=== PATIENT | female | born 1980 | race Caucasian/White ===

== ENCOUNTER → 2018-08-06 12:11 | Outpatient (CLI) | payer MEDICAID, SELFPAY ==
[2018-08-06 12:33] LABS: Add Manual Diff / Slide Review NO; Basophils Percent Auto 0.5 % (0-2); Eosinophils Percent Auto 0.9 % (2-4); Hematocrit 39.1 % (36-46); Hemoglobin 13.3 g/dL (12.0-16.0); Lymphocytes Percent Auto 41.3 % (25-40); Mean Corpuscular HGB Conc 34.1 % (30-36); Mean Corpuscular Hemoglobin 32.9 PG (26-34); Mean Corpuscular Volume 96.5 fL (80-100); Monocytes Percent Auto 6.3 % (3-14); Neutrophils Absolute Auto 2000 /uL (3000-5900); Platelet Count 189 X10^3/uL (150-400); Red Blood Cell Count 4.06 X10^6/uL (4.0-5.2); Red Cell Distribution Width 11.7 % (11.6-14.8); White Blood Cell Count 3.9 X10^3/uL (4.5-11.0)
[2018-08-06 12:39] LABS: Appearance Urine UA CLEAR; Bilirubin Urine UA NEGATIVE (NEGATIVE); Color Urine UA YELLOW; Glucose Urine UA NEGATIVE (Normal); Ketones Urine UA NEGATIVE (NEGATIVE); Leukocyte Esterase Urine UA NEGATIVE (NEGATIVE); Nitrite Urine UA Negative (Negative); Occult Blood Urine UA 1+ (Negative); Protein Urine UA TRACE (Negative); Specific Gravity Urine UA 1.025 (1.000-1.035); Urobilinogen Urine UA 0.2 E.U./dL (0.2); pH Urine UA 5.5 (4.5-8.0)
[2018-08-06 12:59] LABS: Alanine Aminotransferase 19 IU/L (9-52); Albumin 4.2 g/dL (3.5-5.0); Albumin Globulin Ratio 1.8 (1.0-2.8); Alkaline Phosphatase 49 U/L (38-126); Aspartate Aminotransferase 18 IU/L (14-36); BUN Creatinine Ratio 11.3 (6-22); Bilirubin Total 0.6 mg/dL (0.2-1.3); Blood Urea Nitrogen 9 mg/dL (7-17); Calcium 9.1 mg/dL (8.4-10.2); Carbon Dioxide 29 mmol/L (22-32); Chloride 106 mmol/L (98-107); Estimated Glomerular Filt Rate > 60.0 mL/min (>60); Globulin 2.3 g/dL (1.7-4.1); Glucose 94 mg/dL (70-100); HEMOLYSIS < 15 (0-50); Potassium 3.9 mmol/L (3.4-5.1); Sodium 143 mmol/L (137-145); Total Protein 6.5 g/dL (6.3-8.2)
== END ==
PROVIDERS: Visit Provider Internal Medicine
DX: M54.9 Dorsalgia, unspecified (principal)
CPT/HCPCS: 36415; 80053; 81003; 85025

== ENCOUNTER → 2018-08-07 15:11 | Outpatient (CLI) | payer MEDICAID, SELFPAY ==
[2018-08-07 15:16] LABS: Bacteria Urine None Seen; RBC Urine None Seen (0-5/HPF)
[2018-08-07 15:37] LABS: Appearance Urine UA CLEAR; Bilirubin Urine UA NEGATIVE (NEGATIVE); Color Urine UA YELLOW; Glucose Urine UA NEGATIVE (Normal); Ketones Urine UA NEGATIVE (NEGATIVE); Leukocyte Esterase Urine UA NEGATIVE (NEGATIVE); Nitrite Urine UA Negative (Negative); Occult Blood Urine UA 1+ (Negative); Protein Urine UA NEGATIVE (Negative); Specific Gravity Urine UA 1.025 (1.000-1.035); Urobilinogen Urine UA 0.2 E.U./dL (0.2); pH Urine UA 5.5 (4.5-8.0)
[2018-08-07 16:13] LABS: Culture Indicated Urine Cult Not Indicated; WBC Urine 10-30/HPF (0-5/HPF)
== END ==
PROVIDERS: Family Provider Family Medicine; PCP Family Medicine
DX: B37.9 Candidiasis, unspecified (principal)
CPT/HCPCS: 81001

== ENCOUNTER → 2019-01-05 13:18 | Outpatient (CLI) | payer MEDICAID, SELFPAY ==
--- NOTE | 2019-01-05 | DI.RAD.S_ITS ---
PROCEDURE: XR LUMBAR SPINE 2-3V INDICATIONS: CHRONIC BACK PAIN TECHNIQUE: 3 views of the lumbar spine were acquired. COMPARISON: None. FINDINGS: Bones: No fracture or focal osseous destruction. Dextrocurvature is noted. Disc spaces appear grossly preserved. There is lower lumbar facet arthropathy from L4-S1. Soft tissues: Overlying bowel gas pattern is normal. No suspicious soft tissue calcifications. IMPRESSION: Dextroscoliosis. Lower lumbar facet arthropathy. Dictated by: Davion Christianson M.D. on 01/05/2019 at 15:16 Approved by: Davion Christianson M.D. on 01/05/2019 at 15:18
== END ==
PROVIDERS: Visit Provider Family Medicine
DX: M54.5 Low back pain (principal); M47.26 Other spondylosis with radiculopathy, lumbar region; M41.86 Other forms of scoliosis, lumbar region; G89.29 Other chronic pain
CPT/HCPCS: 72100

== ENCOUNTER → 2019-01-14 10:29 | Outpatient (CLI) | payer MEDICAID, SELFPAY ==
--- NOTE | 2019-01-14 10:31 | DI.RAD.S_ITS ---
PROCEDURE: XR KNEE RT 3V INDICATIONS: Right knee pain s/p injury TECHNIQUE: 3 views of the knee were acquired. COMPARISON: [facility], , KNEE 3V RIGHT, 03/02/2012, 12:49. FINDINGS: Bones: No fractures or dislocations. No suspicious bony lesions. Soft tissues: No joint effusion. No suspicious soft tissue calcifications. IMPRESSION: No acute radiographic abnormality. If clinical symptoms persist or clinical suspicion for pathology is high, a repeat examination in 7-10 days, or advanced imaging such as CT or MRI is suggested for further evaluation. Dictated by: Radha Jorge M.D. on 01/14/2019 at 12:29 Approved by: Radha Jorge M.D. on 01/14/2019 at 12:30
== END ==
PROVIDERS: PCP Family Medicine; Visit Provider Registered Nurse
DX: M25.561 Pain in right knee (principal)
CPT/HCPCS: 73562

== ENCOUNTER 2019-04-10 02:45 | Emergency (ER) | payer MEDICAID, SELFPAY ==
[2019-04-10 02:52] VITALS: BP 117/80; PULSE 85; RESP 20; TEMP 37.6; O2SAT 97; BMI 23.9
--- NOTE | 2019-04-10 04:27 | ED.ANXIETY ---
HPI - Anxiety General Chief Complaint: Anxiety Stated Complaint: states has ptsd crying Time Seen by Provider: 04/10/19 04:07 Source: patient Mode of arrival: ambulatory Limitations: no limitations History of Present Illness HPI narrative: Patient is a 38-year-old female who presents with hallucinations. She has a history of PTSD she states sometimes whenever she ceasing the images in her mind stay there. She has been on the Motrin and present Zosyn. Her doctor will not increase the dose until she is evaluated again. She just can't get any sleep. She denies any suicidal or homicidal ideations. Related Data Home Medications Medication Instructions Recorded Confirmed lamotrigine 200 mg PO BID #0 06/04/17 01/14/19 PTSD Meds PO 01/14/19 01/14/19 Previous Rx's Medication Instructions Recorded fluconazole 150 mg tablet 150 mg PO ONCE #2 tab 01/14/19 metronidazole 500 mg tablet 500 mg PO BID #14 tab 01/14/19 Allergies Allergy/AdvReac Type Severity Reaction Status Date / Time meperidine [MEPERIDINE] Allergy Severe SEVERE Verified 04/10/19 02:56 SICKNESS morphine [MORPHINE] Allergy Severe SEVERE Verified 04/10/19 02:56 SICKNESS hydroxyzine [From VISTARIL] Allergy Unknown HEART Verified 04/10/19 02:56 RACING sulfamethoxazole AdvReac Mild increased Verified 04/10/19 02:56 [From SEPTRA] symptoms & nausea trimethoprim [From SEPTRA] AdvReac Mild increased Verified 04/10/19 02:56 symptoms & nausea metronidazole [METRONIDAZOLE] AdvReac Unknown ANXIETY Verified 04/10/19 02:56 AND AGITATION Review of Systems Review of Systems GENERAL: Denies chills, fatigue, malaise, fever, sweats, travel HEENT: Denies sinus pain, ear pain, sore throat, difficulty swallowing, neck pain RESPIRATORY: Denies dyspnea, cough, wheezing, hemoptysis, sputum. CARDIOVASCULAR: Denies chest pain, palpitations, orthopnea, edema GASTROINTESTINAL: Denies nausea, vomiting, abdominal pain, diarrhea, constipation, melena. : Denies dysuria, frequency, incontinence, hematuria, urinary retention, flank pain. MUSCULOSKELETAL: Denies weakness, joint pain, or bony pain SKIN: No rash, no erythema, no pruritus NEUROLOGIC: Denies weakness, dizziness, headache, numbness, change in speech, confusion PSYCHIATRIC: N see HPI 12 point review of systems is negative except for those stated above and HPI PFSH Medical History Anxiety (Chronic) Bipolar disorder (Chronic) Chronic pelvic pain in female (Chronic) Depression (Chronic) Surgical History History of surgery on arm (Resolved 1985) Status post hernia repair (Resolved) Status post laparoscopy (Resolved) Social History Smoking Status: Never smoker alcohol intake: never substance use type: marijuana Social History Smoking Status: Never smoker alcohol intake: never substance use type: marijuana Exam Initial Vital Signs Initial Vital Signs: Vital Signs Temperature 99.6 F 04/10/19 02:52 Pulse Rate 85 04/10/19 02:52 Respiratory Rate 20 04/10/19 02:52 Blood Pressure 117/80 04/10/19 02:52 Pulse Oximetry 97 04/10/19 02:52 GENERAL: Tearful alert well-appearing male and in no acute distress. HEENT: Head atraumatic,EOMI, pupils reactive, CARDIOVASCULAR: Regular rate and rhythm without murmurs, rubs or gallops. RESPIRATORY: Breath sounds equal bilaterally, no wheezes rales or rhonchi. EXTREMITIES: Normal range of motion, no clubbing or edema. Neurovascularly intact NEUROLOGICAL: Alert and oriented x4.Normal gait and speech. Cranial nerves II through XII grossly intact. SKIN: Warm, dry, no laceration, no petechiae, no rashes or lesions. Course Orders Ordered: Discontinued Medications Lorazepam (Ativan) 1 mg PO NOW ONE Stop: 04/10/19 05:59 Last Admin: 04/10/19 06:01 Dose: 1 mg Vital Signs - 8 hr 04/10/19 02:52 04/10/19 05:54 Temperature 99.6 F 97.2 F L Pulse Rate 85 61 Respiratory Rate 20 18 Blood Pressure 117/80 Blood Pressure [Left Arm] 87/61 L Pulse Oximetry 97 98 MDM - Anxiety MDM Narrative Medical decision making narrative: Patient is offered Ativan. She drove herself. She is adamant that she must drive home. She is given Ativan to go Discharge Plan Departure Patient Disposition: Home Clinical Impression: PTSD (post-traumatic stress disorder) Discharge Date/Time: 04/10/19 06:05 Interventions: ED Discharge Assessment Last Done: 04/10/19 06:07 Instructions: Post-traumatic Stress Disorder Activity Restrictions/Additional Instructions: *You have been diagnosed with PTSD *What to do: Recommend new psychiatrist and or therapist *Continue to take medications as directed Ativan 1 mg once you get home *Follow up with your primary care provider in 2-3 days--call [phone] for new PCP *Return to ER if you should have suicidal thoughts, worsening anxiety, chest pain or any new, worsening or concerning symptoms Prescriptions: No Action lamotrigine 200 MG tablet 200 mg PO BID Qty: 0 RF: 0 PTSD Meds PO RF: 0 fluconazole [Diflucan] 150 mg tablet 150 mg PO ONCE Qty: 2 RF: 0 metronidazole [Flagyl] 500 mg tablet 500 mg PO BID Qty: 14 RF: 0 Referrals: Hamzah Rust MD [Primary Care Provider] -
[2019-04-10 05:54] VITALS: BP 87/61; PULSE 61; RESP 18; TEMP 36.2; O2SAT 98
--- NOTE | 2019-04-10 05:57 | PC.NURSE ---
Pt would like Ativan to get some sleep and DR. Aguilera aware.
[2019-04-10] MEDS: LORazepam 0.5 MG TABLET 1 MG PO (06:01)
== END 2019-04-10 06:05 | disposition home or self-care (01) ==
PROVIDERS: Emergency Provider Emergency Medicine; PCP Family Medicine
DX: F43.10 Post-traumatic stress disorder, unspecified (principal)
CPT/HCPCS: 99282; 99283

== ENCOUNTER 2019-04-14 02:34 | Emergency (ER) | payer MEDICAID, SELFPAY ==
[2019-04-14 02:42] VITALS: BP 112/73; PULSE 84; RESP 20; TEMP 36.3; O2SAT 99; BMI 23.6
--- NOTE | 2019-04-14 03:45 | ED.ANXIETY ---
HPI - Anxiety General Chief Complaint: Anxiety Stated Complaint: not sleeping, mental problems Time Seen by Provider: 04/14/19 03:45 Source: patient Mode of arrival: ambulatory Limitations: no limitations History of Present Illness HPI narrative: The patient has a history of PTSD. She suffers from anxiety and insomnia. She takes Lamictal, as well as prazosin. She is not complaining of nightmares. With the symptoms she is having abdominal cramping. She has not vomited. She feels her oral intake is decreased. He has no fever or chills. She has no abnormal bowel movements. He has no chronic GI problems. She has no homicidal or suicidal ideation, she would like to sleep. She feels like she is trending toward being manic. Related Data Home Medications Medication Instructions Recorded Confirmed lamotrigine 200 mg PO BID #0 06/04/17 01/14/19 PTSD Meds PO 01/14/19 01/14/19 Previous Rx's Medication Instructions Recorded fluconazole 150 mg tablet 150 mg PO ONCE #2 tab 01/14/19 metronidazole 500 mg tablet 500 mg PO BID #14 tab 01/14/19 lorazepam [Ativan] 1 mg PO BEDTIME PRN #5 tab 04/14/19 metoclopramide HCl [Reglan] 10 mg PO Q8H PRN #30 tab 04/14/19 Allergies Allergy/AdvReac Type Severity Reaction Status Date / Time meperidine [MEPERIDINE] Allergy Severe SEVERE Verified 04/10/19 02:56 SICKNESS morphine [MORPHINE] Allergy Severe SEVERE Verified 04/10/19 02:56 SICKNESS hydroxyzine [From VISTARIL] Allergy Unknown HEART Verified 04/10/19 02:56 RACING sulfamethoxazole AdvReac Mild increased Verified 04/10/19 02:56 [From ] symptoms & nausea trimethoprim [From AUGRA] AdvReac Mild increased Verified 04/10/19 02:56 symptoms & nausea metronidazole [METRONIDAZOLE] AdvReac Unknown ANXIETY Verified 04/10/19 02:56 AND AGITATION Review of Systems Review of Systems ROS Unobtainable: All systems reviewed & are unremarkable except as noted in HPI and below Constitutional Denies headache(s) and Denies weakness Eyes Denies change in vision ENT Ears, Nose, Mouth, and Throat: Denies headache(s) and Denies neck pain Cardiovascular Denies chest pain, Denies lightheadedness, Denies dyspnea and Denies orthopnea Respiratory Denies cough, Denies dyspnea and Denies wheezing Gastrointestinal Gastrointestinal: Denies constipation, Reports cramping, Denies diarrhea, Denies nausea and Denies vomiting Comments: Decreased appetite. Genitourinary Denies dysuria Musculoskeletal Denies back pain and Denies neck pain Integumentary/Breasts Denies pruritus, Denies erythema, Denies rash and Denies wounds Neurologic Denies confusion, Denies headache(s) and Denies weakness Psychiatric Denies anxiety, Denies confusion, Denies homicidal ideation and Denies suicidal ideation Allergic/Immunologic Denies wheezing [facility] Medical History Anxiety (Chronic) Bipolar disorder (Chronic) Chronic pelvic pain in female (Chronic) Depression (Chronic) Surgical History History of surgery on arm (Resolved 1985) Status post hernia repair (Resolved) Status post laparoscopy (Resolved) Social History Smoking Status: Never smoker alcohol intake: never substance use type: marijuana Social History Smoking Status: Never smoker alcohol intake: never substance use type: marijuana Exam Initial Vital Signs Initial Vital Signs: Vital Signs Temperature 97.3 F L 04/14/19 02:42 Pulse Rate 84 04/14/19 02:42 Respiratory Rate 20 04/14/19 02:42 Blood Pressure 112/73 04/14/19 02:42 Pulse Oximetry 99 04/14/19 02:42 Const General: cooperative and well developed Nutritional Appearance: well nourished Orientation: alert, awake, oriented x3 and not confused [facility] Head: normocephalic and atraumatic Ears: external ears normal and TM's normal bilaterally Nose: external nose normal Face and sinus: sinuses nontender Mouth: moist mucous membranes Teeth and gingiva: dentition normal Throat: tonsils normal and uvula midline Eyes General: appearance normal, both eyes and all related structures Eyelids: eyelids normal Conjunctivae: conjunctivae normal Sclera: sclerae normal Pupils: PERRL EOM: EOM intact bilaterally Chest Chest: normal inspection of the chest Resp Effort & Inspection: normal respiratory effort, able to speak in complete sentences, no respiratory distress and no use of accessory muscles Auscultation: clear to auscultation bilaterally, no rales, no rhonchi and no wheezes Cardio Rate: regular rate Rhythm: regular rhythm Heart Sounds: no click, no gallops, no murmurs and no rubs Pulses: normal peripheral pulses GI Inspection: normal to inspection and non-distended Palpation: soft, no hepatosplenomegaly, No pulsatile mass and tender (Mild epigastric discomfort.) Auscultation: normal bowel sounds Back/Spine/Pelvis Back: No CVA tenderness Thoracic/Lumbar Spine: thoracic and lumbar spine normal to inspection Skin General: no rashes or lesions noted, No jaundice and No petechiae Neuro General: alert, oriented x3, gait normal and no focal motor deficits Speech: speech normal Extrem General: full ROM, no clubbing, cyanosis or edema, no pedal edema and no calf tenderness Psych Appearance: well kempt Mental Status: mental status grossly normal Attitude: cooperative Thought Content: normal and suicidality Judgment: judgment good Course Course Narrative: The the patient is here with anxiety, insomnia and abdominal discomfort. I gave her Reglan. She apparently got enough relief from the Reglan that she fell asleep she eventually hydrated enough to give a urine. The urine sample shows a degree of dehydration. She has been encouraged to drink more water. She will be discharged on Reglan with a 5 pills supply of Ativan. She will be asked to follow up with her physician to discuss ongoing needs. Orders Ordered: ED Orders 04/14/19 05:35 Urine Microscopic Stat Discontinued Medications Metoclopramide HCl (Reglan) 10 mg PO NOW ONE Stop: 04/14/19 03:57 Last Admin: 04/14/19 04:20 Dose: 10 mg Vital Signs - 8 hr 04/14/19 02:42 Temperature 97.3 F L Pulse Rate 84 Respiratory Rate 20 Blood Pressure 112/73 Pulse Oximetry 99 MDM - Anxiety Lab Data Urine Dip Bedside Urine Glucose Negative Bedside Urine Bilirubin - Negative Bedside Urine Ketone +++ 80 Urine Specific [place] 1.030 Bedside Urine Occult Blood +/- Bedside Urine pH 5.5 Bedside Urine Protein + 30 Bedside Urine Urobilinogen +/- 1mg Bedside Urine Nitrite - Negative Bedside Urine Leukocytes - Negative Esterase Discharge Plan Departure Patient Disposition: Home Clinical Impression: PTSD (post-traumatic stress disorder), Epigastric abdominal pain Insomnia Qualifiers: Insomnia type: due to other mental disorder Qualified Code(s): F51.05 - Insomnia due to other mental disorder Instructions: DI for Anxiety -- Adult Activity Restrictions/Additional Instructions: Continue with your currently prescribed medications. Reglan 3 times daily as needed for abdominal cramping or nausea. Ativan 1 tablet q.h.s. as needed for sleep, I element this prescription of 5 tablets. You need to follow-up with her doctor to discuss ongoing treatment. Return the ER when necessary. Prescriptions: New lorazepam [Ativan] 1 mg tablet 1 mg PO BEDTIME PRN (Reason: sleep) Qty: 5 RF: 0 metoclopramide HCl [Reglan] 10 mg tablet 10 mg PO Q8H PRN (Reason: nausea and vomiting) Qty: 30 RF: 0 No Action lamotrigine 200 MG tablet 200 mg PO BID Qty: 0 RF: 0 PTSD Meds PO RF: 0 fluconazole [Diflucan] 150 mg tablet 150 mg PO ONCE Qty: 2 RF: 0 metronidazole [Flagyl] 500 mg tablet 500 mg PO BID Qty: 14 RF: 0 Referrals: Hamzah Rust MD [Primary Care Provider] -
[2019-04-14] MEDS: METOCLOPRAMIDE HCL 10 MG TABLET PO (04:20)
[2019-04-14 06:31] LABS: Bacteria Urine Moderate (10-30); Culture Indicated Urine Cult Not Indicated; Mucus Urine 3+ (Negative); RBC Urine 0-1/HPF (0-5/HPF); Squamous Epithelial Cell Urine 1-5 /HPF (0-5/HPF); WBC Urine 1-5/HPF (0-5/HPF)
[2019-04-14 07:09] VITALS: BP 113/66; PULSE 80; RESP 18; O2SAT 98
== END 2019-04-14 07:10 | disposition home or self-care (01) ==
PROVIDERS: Emergency Provider Emergency Medicine; PCP Family Medicine
DX: F41.9 Anxiety disorder, unspecified (principal); R10.13 Epigastric pain; F51.05 Insomnia due to other mental disorder; F43.10 Post-traumatic stress disorder, unspecified
CPT/HCPCS: 81003; 81015; 99282; 99283

== ENCOUNTER 2019-05-12 21:02 | Emergency (ER) | payer MEDICAID, SELFPAY ==
[2019-05-12 21:06] VITALS: BP 122/72; PULSE 72; RESP 18; TEMP 36.6; O2SAT 98; BMI 23.6
[2019-05-12 21:20] LABS: Add Manual Diff / Slide Review NO; Basophils Absolute Auto 100 /uL (0-100); Basophils Percent Auto 0.9 % (0-2); Eosinophils Absolute Auto 200 /uL (0-450); Eosinophils Percent Auto 3.6 % (2-4); Hematocrit 39.5 % (36-46); Hemoglobin 13.4 g/dL (12.0-16.0); Lymphocytes Absolute Auto 2300 /uL (1100-4500); Lymphocytes Percent Auto 34.7 % (25-40); Mean Corpuscular Hemoglobin 32.7 PG (26-34); Mean Corpuscular Volume 96.3 fL (80-100); Monocytes Absolute Auto 400 /uL (0-900); Monocytes Percent Auto 6.5 % (3-14); Neutrophils Absolute Auto 3500 /uL (1500-7000); Neutrophils Percent Auto 54.3 % (50-75); Platelet Count 203 X10^3/uL (150-400); Red Cell Distribution Width 12.4 % (11.6-14.8); White Blood Cell Count 6.5 X10^3/uL (4.5-11.0)
[2019-05-12] MEDS: ONDANSETRON 4 MG/2 ML INJ IV (21:21)
[2019-05-12 21:26] LABS: Prothrombin Time 11.8 SECONDS (10.1-12.7)
[2019-05-12 21:28] LABS: PTT Partial Thromboplastin Tim 33 SECONDS (26.4-36.2)
[2019-05-12 21:30] LABS: Alanine Aminotransferase 10 IU/L (9-52); Albumin 4.5 g/dL (3.5-5.0); Albumin Globulin Ratio 1.6 (1.0-2.8); Alkaline Phosphatase 64 U/L (38-126); Aspartate Aminotransferase 20 IU/L (14-36); BUN Creatinine Ratio 12.9 (6-22); Bilirubin Total 0.7 mg/dL (0.2-1.3); Blood Urea Nitrogen 9 mg/dL (7-17); Calcium 9.4 mg/dL (8.4-10.2); Carbon Dioxide 24 mmol/L (22-32); Chloride 103 mmol/L (98-107); Estimated Glomerular Filt Rate > 60.0 mL/min (>60); Globulin 2.9 g/dL (1.7-4.1); Glucose 92 mg/dL (70-100); HEMOLYSIS < 15 (0-50); Lipase 65 U/L (23-300); Potassium 3.8 mmol/L (3.4-5.1); Sodium 139 mmol/L (137-145); Total Protein 7.4 g/dL (6.3-8.2)
--- NOTE | 2019-05-12 21:58 | ED.ABDPAIN ---
HPI - Abdominal Pain General Chief Complaint: Abdominal Pain Stated Complaint: CAN'T KEEP ANYTHING DOWN Time Seen by Provider: 05/12/19 21:06 Source: patient and family Mode of arrival: ambulatory Limitations: no limitations History of Present Illness HPI narrative: 38-year-old female nonsmoker with history of anxiety and vomiting presents with a chief complaint multiple episodes of vomiting over the course of the day. This follows the typical scenario for her. She is not dizzy or weak or lightheaded. She states she no longer has access to enter for benzos. She denies any fever or chills. She has no dysuria, frequency or urgency. She does have some mild associated abdominal pain MD complaint: abdominal pain Onset (ago): hour(s) Pain Consistency: constant Location: diffuse Severity: mild Quality: cramping and aching Migration to: no migration Relieving factors: nothing Exacerbating factors: nothing Associated symptoms: nausea and vomiting Related Data Home Medications Medication Instructions Recorded Confirmed lamotrigine 200 mg PO BID #0 06/04/17 01/14/19 PTSD Meds PO 01/14/19 01/14/19 Previous Rx's Medication Instructions Recorded fluconazole 150 mg tablet 150 mg PO ONCE #2 tab 01/14/19 metronidazole 500 mg tablet 500 mg PO BID #14 tab 01/14/19 lorazepam [Ativan] 1 mg PO BEDTIME PRN #5 tab 04/14/19 metoclopramide HCl [Reglan] 10 mg PO Q8H PRN #30 tab 04/14/19 alprazolam 0.25 mg PO BID PRN #10 tab 05/12/19 Allergies Allergy/AdvReac Type Severity Reaction Status Date / Time meperidine [MEPERIDINE] Allergy Severe SEVERE Verified 04/10/19 02:56 SICKNESS morphine [MORPHINE] Allergy Severe SEVERE Verified 04/10/19 02:56 SICKNESS hydroxyzine [From VISTARIL] Allergy Unknown HEART Verified 04/10/19 02:56 RACING sulfamethoxazole AdvReac Mild increased Verified 04/10/19 02:56 [From ] symptoms & nausea trimethoprim [From AUGRA] AdvReac Mild increased Verified 04/10/19 02:56 symptoms & nausea metronidazole [METRONIDAZOLE] AdvReac Unknown ANXIETY Verified 04/10/19 02:56 AND AGITATION Review of Systems Constitutional Denies chills, Denies fever(s), Denies lethargy and Denies weakness Eyes Denies change in vision, Denies eye discharge, Denies irritation and Denies loss of vision ENT Ears, Nose, Mouth, and Throat: Denies change in voice, Denies neck pain and Denies sore throat Cardiovascular Denies chest pain, Denies irregular heart rhythm, Denies lightheadedness, Denies palpitations, Denies dyspnea, Denies dyspnea on exertion and Denies orthopnea Respiratory Denies cough, Denies dyspnea, Denies dyspnea on exertion and Denies wheezing Gastrointestinal Gastrointestinal: Reports abdominal pain, Denies change in bowel habits, Denies diarrhea, Reports nausea and Reports vomiting Genitourinary Denies hematuria, Denies flank pain, Denies urinary incontinence and Denies urinary urgency Musculoskeletal Denies neck pain Integumentary/Breasts Denies pruritus, Denies erythema, Denies rash and Denies wounds Neurologic Denies confusion, Denies loss of vision and Denies weakness Psychiatric Reports anxiety, Denies confusion, Denies depression, Denies homicidal ideation and Denies suicidal ideation Endocrine Denies palpitations Hematologic/Lymphatic Denies easy bruising Allergic/Immunologic Denies wheezing [facility] Medical History Anxiety (Chronic) Bipolar disorder (Chronic) Chronic pelvic pain in female (Chronic) Depression (Chronic) Surgical History History of surgery on arm (Resolved 1985) Status post hernia repair (Resolved) Status post laparoscopy (Resolved) Social History Smoking Status: Never smoker alcohol intake: never substance use type: marijuana Social History Smoking Status: Never smoker alcohol intake: never substance use type: marijuana Exam Narrative Exam Narrative: GENERAL: This is a well-nourished, well-developed patient, in mild distress. Tearful and anxious HEAD: Atraumatic. Normocephalic. No temporal or scalp tenderness. EYES: Pupils equal round and reactive. Extraocular motions intact. No scleral icterus. No injection or drainage. ENT: Nose without bleeding, purulent drainage or septal hematoma. Throat without erythema, tonsillar hypertrophy or exudate. Uvula midline. Airway patent. NECK: Trachea midline. No JVD or lymphadenopathy. Supple, nontender, no meningeal signs. CARDIOVASCULAR: Regular rate and rhythm without murmurs, gallops, or rubs. RESPIRATORY: Clear to auscultation. Breath sounds equal bilaterally. No wheezes, rales, or rhonchi. GASTROINTESTINAL: Abdomen soft, generalized tenderness, nondistended. No hepato-splenomegaly, or palpable masses. No guarding. EXTREMITIES: No clubbing, cyanosis, or edema. No joint tenderness, effusion, or edema noted. BACK: Nontender without deformity or crepitance. No flank tenderness. NEURO: AOx3. SKIN: No rash or erythema. Initial Vital Signs Initial Vital Signs: Vital Signs Temperature 98 F 05/12/19 21:06 Pulse Rate 72 05/12/19 21:06 Respiratory Rate 18 05/12/19 21:06 Blood Pressure 122/72 05/12/19 21:06 Pulse Oximetry 98 05/12/19 21:06 Course Orders Ordered: ED Orders 05/12/19 21:09 EKG-12 Lead Stat 05/12/19 21:11 Complete Blood Count AUTO DIFF Stat Comprehensive Metabolic Panel Stat Lipase Stat Partial Thromboplastin Time Stat Prothrombin Time INR Stat 05/12/19 22:30 Urine Microscopic Stat Discontinued Medications Sodium Chloride (Normal Saline 0.9%) 1,000 mls @ 1,000 mls/hr IV BOLUS ONE Stop: 05/12/19 22:55 Last Infusion: 05/12/19 23:18 Dose: 1,000 mls/hr Admin: 05/12/19 22:04 Dose: 1,000 mls/hr Lorazepam (Ativan) 1 mg IV NOW ONE Stop: 05/12/19 23:09 Last Admin: 05/12/19 23:18 Dose: 1 mg Ondansetron HCl (Zofran) 4 mg IV NOW ONE Stop: 05/12/19 21:18 Last Admin: 05/12/19 21:21 Dose: 4 mg Ondansetron HCl (Zofran Odt Prepack) 1 bottle MISC SEEINSTR ONE Stop: 05/12/19 23:09 Last Admin: 05/12/19 23:18 Dose: 1 bottle Pantoprazole Sodium (Protonix) 40 mg IV NOW ONE Stop: 05/12/19 21:57 Last Admin: 05/12/19 22:04 Dose: 40 mg Vital Signs - 8 hr 05/12/19 21:06 05/12/19 22:00 05/12/19 23:00 Temperature 98 F Pulse Rate 72 57 L 73 Respiratory Rate 18 14 16 Blood Pressure 122/72 Blood Pressure [Right Arm] 102/74 105/75 Pulse Oximetry 98 98 100 MDM - Abdominal Pain Lab Data Result diagrams: 05/12/19 21:11 05/12/19 21:11 Lab Results 05/12/19 05/12/19 05/12/19 Range/Units 21:11 21:11 21:11 WBC 6.5 (4.5-11.0) X10^3/uL RBC 4.10 (4.0-5.2) X10^6/uL Hgb 13.4 (12.0-16.0) g/dL Hct 39.5 (36-46) % MCV 96.3 (80-100) fL MCH 32.7 (26-34) PG MCHC 34.0 (30-36) % RDW 12.4 (11.6-14.8) % Plt Count 203 (150-400) X10^3/uL Neut % (Auto) 54.3 (50-75) % Lymph % (Auto) 34.7 (25-40) % Frio % (Auto) 6.5 (3-14) % Eos % (Auto) 3.6 (2-4) % Baso % (Auto) 0.9 (0-2) % Neut # (Auto) 3500 (4513-3173) /uL Lymph # (Auto) 2300 (1391-7782) /uL Frio # (Auto) 400 (0-900) /uL Eos # (Auto) 200 (0-450) /uL Baso # (Auto) 100 (0-100) /uL PT 11.8 (10.1-12.7) SECONDS INR 1.0 (0.9-1.3) APTT 33 (26.4-36.2) SECONDS Sodium 139 (137-145) mmol/L Potassium 3.8 (3.4-5.1) mmol/L Chloride 103 (98-107) mmol/L Carbon Dioxide 24 (22-32) mmol/L BUN 9 (7-17) mg/dL Creatinine 0.70 (0.52-1.04) mg/dL Estimated GFR > 60.0 (>60) mL/min BUN/Creatinine Ratio 12.9 (6-22) Glucose 92 (70-100) mg/dL Calcium 9.4 (8.4-10.2) mg/dL Total Bilirubin 0.7 (0.2-1.3) mg/dL AST 20 (14-36) IU/L ALT 10 (9-52) IU/L Alkaline Phosphatase 64 (38-126) U/L Total Protein 7.4 (6.3-8.2) g/dL Albumin 4.5 (3.5-5.0) g/dL Globulin 2.9 (1.7-4.1) g/dL Albumin/Globulin Ratio 1.6 (1.0-2.8) Lipase 65 (23-300) U/L Urine RBC (0-5/HPF) Urine WBC (0-5/HPF) Ur Squamous Epith Cells (0-5/HPF) Urine Bacteria (None) Ur Culture Indicated? 05/12/19 Range/Units 22:30 WBC (4.5-11.0) X10^3/uL RBC (4.0-5.2) X10^6/uL Hgb (12.0-16.0) g/dL Hct (36-46) % MCV (80-100) fL MCH (26-34) PG MCHC (30-36) % RDW (11.6-14.8) % Plt Count (150-400) X10^3/uL Neut % (Auto) (50-75) % Lymph % (Auto) (25-40) % Frio % (Auto) (3-14) % Eos % (Auto) (2-4) % Baso % (Auto) (0-2) % Neut # (Auto) (9965-5849) /uL Lymph # (Auto) (4996-8648) /uL Frio # (Auto) (0-900) /uL Eos # (Auto) (0-450) /uL Baso # (Auto) (0-100) /uL PT (10.1-12.7) SECONDS INR (0.9-1.3) APTT (26.4-36.2) SECONDS Sodium (137-145) mmol/L Potassium (3.4-5.1) mmol/L Chloride (98-107) mmol/L Carbon Dioxide (22-32) mmol/L BUN (7-17) mg/dL Creatinine (0.52-1.04) mg/dL Estimated GFR (>60) mL/min BUN/Creatinine Ratio (6-22) Glucose (70-100) mg/dL Calcium (8.4-10.2) mg/dL Total Bilirubin (0.2-1.3) mg/dL AST (14-36) IU/L ALT (9-52) IU/L Alkaline Phosphatase (38-126) U/L Total Protein (6.3-8.2) g/dL Albumin (3.5-5.0) g/dL Globulin (1.7-4.1) g/dL Albumin/Globulin Ratio (1.0-2.8) Lipase (23-300) U/L Urine RBC 1-5/hpf (0-5/HPF) Urine WBC 1-5/hpf (0-5/HPF) Ur Squamous Epith Cells 1-5 /hpf (0-5/HPF) Urine Bacteria Few (2-10) H (None) Ur Culture Indicated? Cult not indicated Point of care testing: Point of Care Testing Test Results Negative Urine Dip Bedside Urine Glucose Negative Bedside Urine Bilirubin - Negative Bedside Urine Ketone +++ 80 Urine Specific [place] 1.020 Bedside Urine Occult Blood +++ Bedside Urine pH 6.0 Bedside Urine Protein +/- 15 Bedside Urine Urobilinogen - Negative Bedside Urine Nitrite - Negative Bedside Urine Leukocytes - Negative Esterase Discharge Plan Departure Patient Disposition: Home Clinical Impression: Vomiting Qualifiers: Vomiting type: unspecified Vomiting Intractability: non-intractable Nausea presence: with nausea Qualified Code(s): R11.2 - Nausea with vomiting, unspecified Discharge Date/Time: 05/12/19 23:24 Interventions: ED Discharge Assessment Last Done: 05/12/19 23:24 Instructions: DI for Anxiety -- Adult, DI for Vomiting -- Adult Activity Restrictions/Additional Instructions: 1. Drink plenty of fluids with frequent small sips. 2. For the next 24 hours a clear liquid diet is advised. After that please employ a brat diet which would include bananas, rice, apples, toast. 3. Please take medications as directed. 4. Please follow-up with your doctor in the next 1-2 days. Call the office for an appointment. 5. Please return to the emergency Department for any worsening or persistent symptoms, such as increasing pain or fever. Prescriptions: New alprazolam 0.25 mg tablet 0.25 mg PO BID PRN (Reason: anxiety) Qty: 10 RF: 0 No Action lamotrigine 200 MG tablet 200 mg PO BID Qty: 0 RF: 0 PTSD Meds PO RF: 0 fluconazole [Diflucan] 150 mg tablet 150 mg PO ONCE Qty: 2 RF: 0 metronidazole [Flagyl] 500 mg tablet 500 mg PO BID Qty: 14 RF: 0 lorazepam [Ativan] 1 mg tablet 1 mg PO BEDTIME PRN (Reason: sleep) Qty: 5 RF: 0 metoclopramide HCl [Reglan] 10 mg tablet 10 mg PO Q8H PRN (Reason: nausea and vomiting) Qty: 30 RF: 0
[2019-05-12 22:00] VITALS: BP 102/74; PULSE 57; RESP 14; O2SAT 98
[2019-05-12] MEDS: SODIUM CHLORIDE 0.9% 1,000 ML 1000 ML IV (22:04)
[2019-05-12] MEDS: PANTOPRAZOLE 40 MG VIAL IV (22:04)
[2019-05-12 23:00] VITALS: BP 105/75; PULSE 73; RESP 16; O2SAT 100
[2019-05-12] MEDS: LORazepam 2 MG/ML INJ 1 MG IV (23:18)
[2019-05-12] MEDS: ONDANSETRON 4 MG ODT PREPACK 1 BOTTLE MISC (23:18)
[2019-05-12 23:37] LABS: RBC Urine 1-5/HPF (0-5/HPF); Squamous Epithelial Cell Urine 1-5 /HPF (0-5/HPF); WBC Urine 1-5/HPF (0-5/HPF)
[2019-05-12 23:38] LABS: Bacteria Urine Few (2-10); Culture Indicated Urine Cult Not Indicated
== END 2019-05-12 23:24 | disposition home or self-care (01) ==
PROVIDERS: Emergency Provider Emergency Medicine
DX: R11.2 Nausea with vomiting, unspecified (principal); R10.84 Generalized abdominal pain
CPT/HCPCS: 80053; 81003; 81015; 81025; 83690; 85025; 85610; 85730; 93005; 96361; 96374; 96375; 99283; 99284; C9113; J2060; J2405

== ENCOUNTER → 2019-07-16 16:08 | Outpatient (CLI) | payer MEDICAID, SELFPAY ==
[2019-07-16 19:48] LABS: Urine N gonorrhoeae NOT DETECTED
[2019-07-16 19:54] LABS: Urine Chlamydia NOT DETECTED
== END ==
PROVIDERS: Visit Provider Hospitalist
DX: R10.2 Pelvic and perineal pain (principal)
CPT/HCPCS: 87491; 87591

== ENCOUNTER 2019-11-20 03:50 | Emergency (ER) | payer MEDICAID, SELFPAY ==
[2019-11-20 03:56] VITALS: BP 115/76; PULSE 72; RESP 18; TEMP 36.6; O2SAT 98
--- NOTE | 2019-11-20 04:09 | ED.ANXIETY ---
HPI - Anxiety General Chief Complaint: Anxiety Stated Complaint: hx ptsd difficulty sleeping Time Seen by Provider: 11/20/19 03:59 Source: patient Mode of arrival: Ambulatory Limitations: no limitations History of Present Illness HPI narrative: 38-year-old female with a history of PTSD states that she has gone approximately 24 hours without her Lamictal. She states that she thought she had a extra prescription for this at home however did not. She was unable to go to the pharmacy to pick it up so has been at least 24 hours without her medications. States that when she does not take this medication her anxiety level increases and she has problems sleeping. She states she has prescriptions for this medication but just has not had a chance to go and pick them up. She is here because she is feeling anxious and could not sleep Related Data Home Medications Medication Instructions Recorded Confirmed lamotrigine 200 mg PO BID #0 06/04/17 09/14/19 buspirone 10 mg tablet 10 mg PO TID 09/14/19 09/14/19 Allergies Allergy/AdvReac Type Severity Reaction Status Date / Time meperidine [MEPERIDINE] Allergy Severe SEVERE Verified 09/14/19 15:52 SICKNESS morphine [MORPHINE] Allergy Severe SEVERE Verified 09/14/19 15:52 SICKNESS hydroxyzine [From VISTARIL] Allergy Unknown HEART Verified 09/14/19 15:52 RACING sulfamethoxazole AdvReac Mild increased Verified 09/14/19 15:52 [From SEPTRA] symptoms & nausea trimethoprim [From SEPTRA] AdvReac Mild increased Verified 09/14/19 15:52 symptoms & nausea metronidazole [METRONIDAZOLE] AdvReac Unknown ANXIETY Verified 09/14/19 15:52 AND AGITATION Review of Systems Constitutional Constitutional: Denies fever(s) Cardiovascular Cardiovascular: Denies chest pain and Denies dyspnea Respiratory Respiratory: Denies dyspnea Gastrointestinal Gastrointestinal: Denies abdominal pain Neurologic Neurologic: Denies behavioral changes Psychiatric Psychiatric: Reports anxiety, Denies behavioral changes and Denies depression Comments: Insomnia Hematologic/Lymphatic Hematologic/Lymphatic: Denies easy bleeding and Denies easy bruising Patient History Medical History Anxiety (Chronic) Bipolar disorder (Chronic) Chronic pelvic pain in female (Chronic) Depression (Chronic) Social History Smoking Status: Never smoker alcohol intake: never substance use type: marijuana Smoking Status: Never smoker alcohol intake frequency: other Substance Use Type: marijuana Exam Initial Vital Signs Initial Vital Signs: Vital Signs Temperature 98 F 11/20/19 03:56 Pulse Rate 72 11/20/19 03:56 Respiratory Rate 18 11/20/19 03:56 Blood Pressure 115/76 11/20/19 03:56 Pulse Oximetry 98 11/20/19 03:56 Const General: cooperative Orientation: alert and awake HENMT Head: normal to inspection and normocephalic Resp Effort & Inspection: normal respiratory effort Cardio Rate: regular rate Skin Lesions: no lesions Rashes: no rashes Neuro General: alert and awake Extrem General: normal to inspection and capillary refill normal Course Orders Ordered: Discontinued Medications Lorazepam (Ativan) 1 mg PO NOW ONE Stop: 11/20/19 04:11 Vital Signs Vital signs: Vital Signs - 8 hr 11/20/19 03:56 Temperature 98 F Pulse Rate 72 Respiratory Rate 18 Blood Pressure 115/76 Pulse Oximetry 98 MDM - Anxiety MDM Narrative Medical decision making narrative: Nontoxic. Is calm. Unfortunately we did not have Lamictal here in the emergency department or in the night pharmacy to give her. She was given Ativan. She stated that this was okay. She does have a prescription for Lamictal. She can pick it up at the pharmacy later today when it opens. Discharge Plan Departure Patient Disposition: Home Clinical Impression: Anxiety Insomnia Qualifiers: Insomnia type: unspecified Qualified Code(s): G47.00 - Insomnia, unspecified Instructions: Insomnia, Anxiety Disorders Activity Restrictions/Additional Instructions: I recommend that you go to the pharmacy today to fill your prescription for the Lamictal. Contact your primary provider for follow-up. Return to the emergency department for any new symptoms Prescriptions: No Action lamotrigine 200 MG tablet 200 mg PO BID Qty: 0 RF: 0 buspirone 10 mg tablet 10 mg PO TID RF: 0
[2019-11-20] MEDS: LORazepam 0.5 MG TABLET 1 MG PO (04:17)
[2019-11-20 04:27] VITALS: BP 105/70; PULSE 76; RESP 18; O2SAT 99
== END 2019-11-20 04:28 | disposition home or self-care (01) ==
PROVIDERS: Emergency Provider Emergency Medicine
DX: G47.00 Insomnia, unspecified (principal); F41.9 Anxiety disorder, unspecified
CPT/HCPCS: 99281; 99283

== ENCOUNTER 2019-11-21 02:11 | Emergency (ER) | payer MEDICAID, SELFPAY ==
[2019-11-21 02:25] VITALS: BP 117/74; PULSE 71; RESP 20; TEMP 36.7; O2SAT 98; BMI 22.1
--- NOTE | 2019-11-21 02:29 | ED.PSYCH ---
HPI - Psych General Chief Complaint: Psychiatric Symptoms Stated Complaint: PTSD ATTACK Time Seen by Provider: 11/21/19 02:24 Source: patient Mode of arrival: Ambulatory Limitations: no limitations History of Present Illness HPI Narrative: 38-year-old female with a history of PTSD and anxiety. I evaluated her here 24 hours ago for insomnia. She had gone a couple days without taking her lamotrigine. During last visit she was given Ativan here in the emergency department and she was going to picker tender helper her lamotrigine today. States that after that visit she went home and slept very well. She did picker tender helper her lamotrigine and did take it today as directed however this evening she again was unable to sleep. Related Data Home Medications Medication Instructions Recorded Confirmed lamotrigine 200 mg PO BID #0 06/04/17 09/14/19 buspirone 10 mg tablet 10 mg PO TID 09/14/19 09/14/19 Previous Rx's Medication Instructions Recorded lorazepam [Ativan] 1 mg PO BEDTIME PRN #10 tab 11/21/19 Allergies Allergy/AdvReac Type Severity Reaction Status Date / Time meperidine [MEPERIDINE] Allergy Severe SEVERE Verified 09/14/19 15:52 SICKNESS morphine [MORPHINE] Allergy Severe SEVERE Verified 09/14/19 15:52 SICKNESS hydroxyzine [From VISTARIL] Allergy Unknown HEART Verified 09/14/19 15:52 RACING sulfamethoxazole AdvReac Mild increased Verified 09/14/19 15:52 [From SEPTRA] symptoms & nausea trimethoprim [From SEPTRA] AdvReac Mild increased Verified 09/14/19 15:52 symptoms & nausea metronidazole [METRONIDAZOLE] AdvReac Unknown ANXIETY Verified 09/14/19 15:52 AND AGITATION Review of Systems Constitutional Constitutional: Denies fever(s) Cardiovascular Cardiovascular: Denies chest pain and Denies dyspnea Respiratory Respiratory: Denies dyspnea Gastrointestinal Gastrointestinal: Denies abdominal pain Integumentary/Breasts Skin/Breast: Denies lesions and Denies rash Neurologic Neurologic: Denies behavioral changes Psychiatric Psychiatric: Reports anxiety and Denies behavioral changes Comments: Insomnia Hematologic/Lymphatic Hematologic/Lymphatic: Denies easy bleeding and Denies easy bruising Patient History Medical History Anxiety (Chronic) Bipolar disorder (Chronic) Chronic pelvic pain in female (Chronic) Depression (Chronic) Surgical History History of surgery on arm (Resolved 1985) Status post hernia repair (Resolved) Status post laparoscopy (Resolved) Social History Smoking Status: Never smoker alcohol intake: never substance use type: marijuana Smoking Status: Never smoker alcohol intake frequency: other Substance Use Type: marijuana Exam Initial Vital Signs Initial Vital Signs: Vital Signs Temperature 98.1 F 11/21/19 02:25 Pulse Rate 71 11/21/19 02:25 Respiratory Rate 20 11/21/19 02:25 Blood Pressure 117/74 11/21/19 02:25 Pulse Oximetry 98 11/21/19 02:25 Const General: cooperative, healthy appearing and comfortable Resp Effort & Inspection: normal respiratory effort Cardio Rate: regular rate Skin Rashes: no rashes Neuro General: alert and awake Cognition: normal cognition Speech: speech normal Extrem General: normal to inspection Psych Appearance: grossly normal and well kempt Speech and Movement: not agitated, speech clear and not restless Mood: anxious mood and No angry Affect: sad and anxious affect Thought Process: normal Thought Content: normal Course Orders Ordered: Discontinued Medications Lorazepam (Ativan) 1 mg PO NOW ONE Stop: 11/21/19 02:30 Last Admin: 11/21/19 02:34 Dose: 1 mg Documented by: JONATHAN Vital Signs Vital signs: Vital Signs - 8 hr 11/21/19 02:25 Temperature 98.1 F Pulse Rate 71 Respiratory Rate 20 Blood Pressure 117/74 Pulse Oximetry 98 MDM - Psych MDM Narrative Medical decision making narrative: She states that she did have a good response to the Ativan. She has been on clonazepam in the past but not currently. She is given another dose of Ativan here in the ER. Will send her home with a prescription for short course of it now. She is going to continue with her lamotrigine. She is going to contact her therapist for a follow-up. She was given return precautions. She expressed understanding and agreement plan Discharge Plan Departure Patient Disposition: Home Clinical Impression: Anxiety Insomnia Qualifiers: Insomnia type: unspecified Qualified Code(s): G47.00 - Insomnia, unspecified Instructions: DI for Anxiety -- Adult Activity Restrictions/Additional Instructions: Continue to take your lamotrigine as directed. It is important that you contact her therapist for a follow-up appointment. Take the Ativan as needed as directed. Return to the emergency department for any new symptoms Prescriptions: New lorazepam [Ativan] 1 mg tablet 1 mg PO BEDTIME PRN (Reason: insomnia) Qty: 10 RF: 0 No Action lamotrigine 200 MG tablet 200 mg PO BID Qty: 0 RF: 0 buspirone 10 mg tablet 10 mg PO TID RF: 0
[2019-11-21] MEDS: LORazepam 0.5 MG TABLET 1 MG PO (02:34)
== END 2019-11-21 03:01 | disposition home or self-care (01) ==
LOC: ED 02:42
PROVIDERS: Emergency Provider Emergency Medicine
DX: F51.05 Insomnia due to other mental disorder (principal); F41.9 Anxiety disorder, unspecified
CPT/HCPCS: 99283

== ENCOUNTER 2020-04-13 10:07 | Emergency (ER) | payer MEDICAID, SELFPAY ==
[2020-04-13 10:15] VITALS: BP 137/100; PULSE 99; RESP 20; TEMP 36.8; O2SAT 98; BMI 20.2
--- NOTE | 2020-04-13 10:18 | ED_ITS ---
HPI - Anxiety General Chief Complaint: Anxiety Stated Complaint: anxiety Time Seen by Provider: 04/13/20 10:11 Source: patient and family Mode of arrival: Ambulatory Limitations: no limitations History of Present Illness HPI narrative: 39-year-old female nonsmoker with history of anxiety presents with family in the chief complaint of a panic attack that started this morning. She denies any obvious source of her anxiety but suspects it is likely due to the pain and neck. She is under the care of therapists and expects to get a call later this afternoon. She does have prescriptions for BuSpar and Ativan but has not taken them yet today. She denies any suicidal or homicidal ideation. She denies any dietary change Related Data Home Medications Medication Instructions Recorded Confirmed lamotrigine 200 mg PO BID #0 06/04/17 09/14/19 buspirone 10 mg tablet 10 mg PO TID 09/14/19 09/14/19 Previous Rx's Medication Instructions Recorded lorazepam [Ativan] 1 mg PO BEDTIME PRN #10 tab 11/21/19 lorazepam [Ativan] 1 mg PO BID PRN #10 tab 04/13/20 Allergies Allergy/AdvReac Type Severity Reaction Status Date / Time meperidine [MEPERIDINE] Allergy Severe SEVERE Verified 04/13/20 10:15 SICKNESS morphine [MORPHINE] Allergy Severe SEVERE Verified 04/13/20 10:15 SICKNESS hydroxyzine [From VISTARIL] Allergy Unknown HEART Verified 04/13/20 10:15 RACING sulfamethoxazole AdvReac Mild increased Verified 04/13/20 10:15 [From ] symptoms & nausea trimethoprim [From SEPTRA] AdvReac Mild increased Verified 04/13/20 10:15 symptoms & nausea metronidazole [METRONIDAZOLE] AdvReac Unknown ANXIETY Verified 04/13/20 10:15 AND AGITATION Review of Systems Constitutional Constitutional: Denies chills, Denies fatigue, Denies fever(s), Denies frequent falls, Denies lethargy and Denies weakness Eyes Eyes: Denies change in vision, Denies eye discharge, Denies irritation and Denies loss of vision ENT Ears, Nose, Mouth, and Throat: Denies change in voice, Denies dizziness, Denies neck pain, Denies sore throat and Denies throat swelling Cardiovascular Cardiovascular: Denies chest pain, Denies irregular heart rhythm, Denies lightheadedness, Denies palpitations, Denies dyspnea, Denies dyspnea on exertion and Denies orthopnea Respiratory Respiratory: Denies cough, Denies dyspnea, Denies dyspnea on exertion and Denies wheezing Gastrointestinal Gastrointestinal: Denies abdominal pain, Denies change in bowel habits, Denies diarrhea, Denies nausea and Denies vomiting Genitourinary Genitourinary: Denies hematuria, Denies flank pain, Denies urinary incontinence and Denies urinary urgency Musculoskeletal Musculoskeletal: Denies back pain, Denies muscle weakness, Denies neck pain, Denies numbness and Denies tingling Integumentary/Breasts Skin/Breast: Denies pruritus, Denies erythema, Denies rash and Denies wounds Neurologic Neurologic: Denies behavioral changes, Denies confusion, Denies dizziness, Denies frequent falls, Denies loss of vision, Denies numbness, Denies tingling and Denies weakness Psychiatric Psychiatric: Reports anxiety, Denies behavioral changes, Denies confusion, Denies depression, Denies homicidal ideation and Denies suicidal ideation Endocrine Endocrine: Denies fatigue, Denies flushing and Denies palpitations Hematologic/Lymphatic Hematologic/Lymphatic: Denies easy bruising Allergic/Immunologic Allergic/Immunologic: Denies urticaria, Denies throat swelling and Denies wheezing Patient History Medical History Anxiety (Chronic) Bipolar disorder (Chronic) Chronic pelvic pain in female (Chronic) Depression (Chronic) Surgical History History of surgery on arm (Resolved 1985) Status post hernia repair (Resolved) Status post laparoscopy (Resolved) Social History Smoking Status: Never smoker alcohol intake: never substance use type: marijuana Smoking Status: Never smoker alcohol intake frequency: holidays/special occasions only Substance Use Type: marijuana Exam Narrative Exam Narrative: GENERAL: [39] year old patient appears stated age. Well- nourished, well-developed patient, in mild distress. Sobbing, fearful. HEAD: Atraumatic. Normocephalic. EYES: Pupils equal round and reactive. Extraocular motions intact. No scleral icterus. No injection or drainage. ENT: Nose without bleeding, purulent drainage. Throat without erythema, t onsillar hypertrophy or exudate. Airway patent. NECK: Trachea midline. Non tender CARDIOVASCULAR: Regular rate and rhythm without murmurs, gallops, or rubs. RESPIRATORY: Clear to auscultation. Breath sounds equal bilaterally. No wheezes, rales, or rhonchi. GASTROINTESTINAL: Abdomen soft, non-tender, nondistended. EXTREMITIES: No edema or joint tenderness. BACK: Nontender without deformity or crepitance. No flank tenderness. NEURO: AOx3. SKIN: No rash or erythema of visible areas Initial Vital Signs Initial Vital Signs: Vital Signs Temperature 98.3 F 04/13/20 10:15 Pulse Rate 99 H 04/13/20 10:15 Respiratory Rate 20 04/13/20 10:15 Blood Pressure 137/100 H 04/13/20 10:15 Pulse Oximetry 98 04/13/20 10:15 Course Course Course Narrative: patient feels MUCH better after above stated therapies. She has no SI/HI. She has already been in touch with her therapist. She can plan for safety. She demonstrates good insight. SHe has been given return precautions and has had questions answered to her apparent satisfaction./ Orders Ordered: ED Orders 04/13/20 10:28 Basic Metabolic Panel Stat Complete Blood Count AUTO DIFF Stat Discontinued Medications Lorazepam (Ativan) 1 mg IM NOW ONE Stop: 04/13/20 10:18 Last Admin: 04/13/20 10:29 Dose: 1 mg Documented by: BENJA Ondansetron HCl (Zofran Odt) 4 mg SL NOW ONE Stop: 04/13/20 10:18 Last Admin: 04/13/20 10:29 Dose: 4 mg Documented by: BENJA Vital Signs Vital signs: Vital Signs - 8 hr 04/13/20 10:15 04/13/20 12:07 04/13/20 12:09 Temperature 98.3 F Pulse Rate 99 H 72 72 Respiratory Rate 20 12 12 Blood Pressure 137/100 H 120/77 Blood Pressure [Right Arm] 120/77 Pulse Oximetry 98 100 100 MDM - Anxiety Lab Data Result diagrams: 04/13/20 10:28 04/13/20 10:28 Labs: Lab Results 04/13/20 04/13/20 Range/Units 10:28 10:28 WBC 4.6 (4.5-11.0) X10^3/uL RBC 4.00 (4.0-5.2) X10^6/uL Hgb 13.5 (12.0-16.0) g/dL Hct 39.6 (36-46) % MCV 98.8 (80-100) fL MCH 33.8 (26-34) PG MCHC 34.2 (30-36) % RDW 12.4 (11.6-14.8) % Plt Count 193 (150-400) X10^3/uL Neut % (Auto) 59.9 (50-75) % Lymph % (Auto) 30.8 (25-40) % [place] % (Auto) 4.9 (3-14) % Eos % (Auto) 3.5 (2-4) % Baso % (Auto) 0.9 (0-2) % Neut # (Auto) 2800 (5909-1085) /uL Lymph # (Auto) 1400 (3385-3312) /uL [place] # (Auto) 200 (0-900) /uL Eos # (Auto) 200 (0-450) /uL Baso # (Auto) 0 (0-100) /uL Sodium 140 (137-145) mmol/L Potassium 3.6 (3.4-5.1) mmol/L Chloride 106 (98-107) mmol/L Carbon Dioxide 26 (22-32) mmol/L BUN 8 (7-17) mg/dL Creatinine 0.78 (0.52-1.04) mg/dL Estimated GFR > 60.0 (>60) mL/min BUN/Creatinine Ratio 10.3 (6-22) Glucose 113 H (70-100) mg/dL Calcium 9.0 (8.4-10.2) mg/dL Discharge Plan Departure Patient Disposition: Home Clinical Impression: Anxiety Discharge Date/Time: 04/13/20 12:12 Activity Restrictions/Additional Instructions: *You have been diagnosed with [anxiety with panic attack] *What to do: *Take medications as directed *Follow up with your primary care provider in 2-3 days, call for an appointment. Let them know you were seen in the Emergency Department and that we ask that you be seen in follow up *Return to ER if you should have any new, worsening or concerning symptoms Prescriptions: New lorazepam [Ativan] 1 mg tablet 1 mg PO BID PRN (Reason: anxiety) Qty: 10 RF: 0 No Action lamotrigine 200 MG tablet 200 mg PO BID Qty: 0 RF: 0 buspirone 10 mg tablet 10 mg PO TID RF: 0 lorazepam [Ativan] 1 mg tablet 1 mg PO BEDTIME PRN (Reason: insomnia) Qty: 10 RF: 0 Referrals: [facility] [Outside] Yuri Faith MD [Primary Care Provider] -
[2020-04-13] MEDS: ONDANSETRON 4 MG ODT SL (10:29)
[2020-04-13] MEDS: LORazepam 2 MG/ML INJ 1 MG IM (10:29)
[2020-04-13 10:39] LABS: Add Manual Diff / Slide Review NO; Basophils Absolute Auto 0 /uL (0-100); Basophils Percent Auto 0.9 % (0-2); Eosinophils Absolute Auto 200 /uL (0-450); Eosinophils Percent Auto 3.5 % (2-4); Hematocrit 39.6 % (36-46); Hemoglobin 13.5 g/dL (12.0-16.0); Lymphocytes Absolute Auto 1400 /uL (1100-4500); Lymphocytes Percent Auto 30.8 % (25-40); Mean Corpuscular HGB Conc 34.2 % (30-36); Mean Corpuscular Hemoglobin 33.8 PG (26-34); Mean Corpuscular Volume 98.8 fL (80-100); Monocytes Absolute Auto 200 /uL (0-900); Monocytes Percent Auto 4.9 % (3-14); Neutrophils Absolute Auto 2800 /uL (1500-7000); Neutrophils Percent Auto 59.9 % (50-75); Platelet Count 193 X10^3/uL (150-400); Red Cell Distribution Width 12.4 % (11.6-14.8); White Blood Cell Count 4.6 X10^3/uL (4.5-11.0)
[2020-04-13 10:47] LABS: BUN Creatinine Ratio 10.3 (6-22); Blood Urea Nitrogen 8 mg/dL (7-17); Carbon Dioxide 26 mmol/L (22-32); Chloride 106 mmol/L (98-107); Estimated Glomerular Filt Rate > 60.0 mL/min (>60); Glucose 113 mg/dL (70-100); HEMOLYSIS < 15 (0-50); Potassium 3.6 mmol/L (3.4-5.1); Sodium 140 mmol/L (137-145)
[2020-04-13 12:07] VITALS: BP 120/77; PULSE 72; RESP 12; O2SAT 100
--- NOTE | 2020-04-13 12:08 | PC.NURSE ---
pt was in room with her sister and in no acute distress.
[2020-04-13 12:09] VITALS: BP 120/77; PULSE 72; RESP 12; O2SAT 100
== END 2020-04-13 12:12 | disposition home or self-care (01) ==
PROVIDERS: Emergency Provider Emergency Medicine; PCP Family Medicine
DX: F41.0 Panic disorder [episodic paroxysmal anxiety] (principal)
CPT/HCPCS: 36415; 80048; 85025; 96372; 99283; J2060

== ENCOUNTER 2020-05-16 23:14 | Emergency (ER) | payer MEDICAID, SELFPAY ==
[2020-05-16 23:21] VITALS: BP 158/114; PULSE 105; RESP 15; TEMP 37.1; O2SAT 99; BMI 20.3
--- NOTE | 2020-05-16 23:22 | ED_ITS ---
HPI - Anxiety General Chief Complaint: Anxiety Stated Complaint: bad anxiety Time Seen by Provider: 05/16/20 23:18 Source: patient Mode of arrival: Ambulatory Limitations: no limitations History of Present Illness HPI narrative: 39F non smoker with history of occasional THC use and anxiety presents with severe anxiety and she states she has been very anxious for the past day or so because she misplaced her prescription for buspirone. She sees her therapist frequently and her therapist and prescriber have been talking frequently. She denies suicidal or homicidal ideation. She denies alcohol or street drugs. She feels very worked up and wants some help getting through to tomorrow. MD complaint: anxiety and heart racing Onset (ago): hour(s) Severity: moderate Quality: constant Place: home History of similar episodes: Yes Provoking factors: emotional stress and medication change Relieving factors: medication Exacerbating factors: nothing Related Data Home Medications Medication Instructions Recorded Confirmed lamotrigine 200 mg PO BID #0 06/04/17 09/14/19 buspirone 10 mg tablet 10 mg PO TID 09/14/19 09/14/19 Previous Rx's Medication Instructions Recorded lorazepam [Ativan] 1 mg PO BEDTIME PRN #10 tab 11/21/19 lorazepam [Ativan] 1 mg PO BID PRN #10 tab 04/13/20 Allergies Allergy/AdvReac Type Severity Reaction Status Date / Time meperidine [MEPERIDINE] Allergy Severe SEVERE Verified 04/13/20 10:15 SICKNESS morphine [MORPHINE] Allergy Severe SEVERE Verified 04/13/20 10:15 SICKNESS hydroxyzine [From VISTARIL] Allergy Unknown HEART Verified 04/13/20 10:15 RACING sulfamethoxazole AdvReac Mild increased Verified 04/13/20 10:15 [From ] symptoms & nausea trimethoprim [From ] AdvReac Mild increased Verified 04/13/20 10:15 symptoms & nausea metronidazole [METRONIDAZOLE] AdvReac Unknown ANXIETY Verified 04/13/20 10:15 AND AGITATION Review of Systems Constitutional Constitutional: Denies chills, Denies fatigue, Denies fever(s), Denies frequent falls, Denies lethargy and Denies weakness Eyes Eyes: Denies change in vision, Denies eye discharge, Denies irritation and Denies loss of vision ENT Ears, Nose, Mouth, and Throat: Denies change in voice, Denies dizziness, Denies neck pain, Denies sore throat and Denies throat swelling Cardiovascular Cardiovascular: Denies chest pain, Denies irregular heart rhythm, Denies lightheadedness, Denies palpitations, Denies dyspnea, Denies dyspnea on exertion and Denies orthopnea Respiratory Respiratory: Denies cough, Denies dyspnea, Denies dyspnea on exertion and Denies wheezing Gastrointestinal Gastrointestinal: Denies abdominal pain, Denies change in bowel habits, Denies diarrhea, Denies nausea and Denies vomiting Musculoskeletal Musculoskeletal: Denies neck pain and Denies numbness Integumentary/Breasts Skin/Breast: Denies pruritus, Denies erythema, Denies rash and Denies wounds Neurologic Neurologic: Denies behavioral changes, Denies confusion, Denies dizziness, Den ies frequent falls, Denies loss of vision, Denies numbness and Denies weakness Psychiatric Psychiatric: Reports anxiety, Denies behavioral changes, Denies confusion, Denies depression, Reports panic attacks, Denies homicidal ideation and Denies suicidal ideation Endocrine Endocrine: Denies fatigue, Denies flushing and Denies palpitations Hematologic/Lymphatic Hematologic/Lymphatic: Denies easy bruising Allergic/Immunologic Allergic/Immunologic: Denies urticaria, Denies throat swelling and Denies wheezing Patient History Medical History Anxiety (Chronic) Bipolar disorder (Chronic) Chronic pelvic pain in female (Chronic) Depression (Chronic) Surgical History History of surgery on arm (Resolved 1985) Status post hernia repair (Resolved) Status post laparoscopy (Resolved) Social History Smoking Status: Never smoker alcohol intake: never substance use type: marijuana Smoking Status: Never smoker alcohol intake frequency: holidays/special occasions only Substance Use Type: marijuana Exam Narrative Exam Narrative: GENERAL: [39] year old patient appears stated age. Well- nourished, well-developed patient, in moderate distress. Very anxious and visibly distraught HEAD: Atraumatic. Normocephalic. EYES: Pupils equal round and reactive. Extraocular motions intact. No scleral icterus. No injection or drainage. ENT: Nose without bleeding, purulent drainage. Throat without erythema, tonsillar hypertrophy or exudate. Airway patent. NECK: Trachea midline. Non tender CARDIOVASCULAR: Regular rate and rhythm without murmurs, gallops, or rubs. RESPIRATORY: Clear to auscultation. Breath sounds equal bilaterally. No wheezes, rales, or rhonchi. GASTROINTESTINAL: Abdomen soft, non-tender, nondistended. EXTREMITIES: No edema or joint tenderness. BACK: Nontender without deformity or crepitance. No flank tenderness. NEURO: AOx3. SKIN: No rash or erythema of visible areas Initial Vital Signs Initial Vital Signs: Vital Signs Temperature 98.8 F 05/16/20 23:21 Pulse Rate 105 H 05/16/20 23:21 Respiratory Rate 15 05/16/20 23:21 Blood Pressure 158/114 H 05/16/20 23:21 Pulse Oximetry 99 05/16/20 23:21 Course Orders Ordered: Discontinued Medications Buspirone HCl (Buspar) 10 mg PO NOW ONE Stop: 05/17/20 00:10 Last Admin: 05/17/20 00:19 Dose: 10 mg Documented by: JONGFARL Lorazepam (Ativan) 1 mg PO NOW ONE Stop: 05/17/20 00:40 Last Admin: 05/17/20 00:51 Dose: 1 mg Documented by: JONGFARL Reevaluation(s) Reevaluation #1: she calmed down quite a bit when we were able to get her a buspirone. She feels very confident that she can make it through the night until she sees her therapist. Vital Signs Vital signs: Vital Signs - 8 hr 05/16/20 23:21 05/17/20 00:51 Temperature 98.8 F Pulse Rate 105 H 99 H Respiratory Rate 15 17 Blood Pressure 158/114 H 149/104 H Pulse Oximetry 99 99 Discharge Plan Departure Patient Disposition: Home Clinical Impression: Anxiety Discharge Date/Time: 05/17/20 00:51 Instructions: DI for Anxiety -- Adult Activity Restrictions/Additional Instructions: *You have been diagnosed with [ anxiety and medical non-compliance ] *What to do: *Follow up with your therapist tomorrow as planned.. Let them know you were seen in the Emergency Department and that we ask that you be seen in follow up *Return to ER if you should have any new, worsening or concerning symptoms Prescriptions: No Action lamotrigine 200 MG tablet 200 mg PO BID Qty: 0 RF: 0 buspirone 10 mg tablet 10 mg PO TID RF: 0 lorazepam [Ativan] 1 mg tablet 1 mg PO BEDTIME PRN (Reason: insomnia) Qty: 10 RF: 0 lorazepam [Ativan] 1 mg tablet 1 mg PO BID PRN (Reason: anxiety) Qty: 10 RF: 0 Referrals: Yuri Faith MD [Primary Care Provider] -
--- NOTE | 2020-05-16 23:33 | PC.NURSE ---
Pt states unsure her triggers. states tried to drink some tea and has not improved. Pt tearful. She states I have lost a ton of weight and hasn't been able to eat. Denies any SI.
[2020-05-17] MEDS: BUSPIRONE 5 MG TABLET 10 MG PO (00:19)
[2020-05-17 00:51] VITALS: BP 149/104; PULSE 99; RESP 17; O2SAT 99
[2020-05-17] MEDS: LORazepam 0.5 MG TABLET 1 MG PO (00:51)
== END 2020-05-17 00:51 | disposition home or self-care (01) ==
PROVIDERS: Emergency Provider Emergency Medicine; PCP Family Medicine
DX: F41.9 Anxiety disorder, unspecified (principal)
CPT/HCPCS: 99283

== ENCOUNTER 2020-05-23 11:10 | Emergency (ER) | payer MEDICAID, SELFPAY ==
[2020-05-23 11:18] VITALS: BP 109/81; PULSE 71; RESP 16; TEMP 36.7; O2SAT 98; BMI 18.4
[2020-05-23 12:26] VITALS: BP 118/76; PULSE 55; RESP 16; O2SAT 100
[2020-05-23 12:46] VITALS: BP 116/76; PULSE 49; RESP 14; O2SAT 100
--- NOTE | 2020-05-23 12:55 | DI.US.S_ITS ---
PROCEDURE: US ABDOMEN LIMITED INDICATIONS: RIGHT INGUINAL PAIN TECHNIQUE: Real-time focused scanning was performed of the abdomen at the site of the patient's area of pain within the right inguinal region. COMPARISON: [facility], CT, ABDOMEN/PELVIS WITH CONTRAST, 08/03/2017, 13:06. [facility], US, US ABDOMEN, 03/27/2016, 14:06. [facility], CR, CHEST 2 VIEW, 11/22/2015, 22:49. [facility], US, ABDOMEN COMPLETE, 11/10/2014, 7:42. FINDINGS: Targeted sonographic imaging was performed at the site of the patient's area of concern, which is located within the right inguinal region. No cystic or solid masses identified. No there are no enlarged lymph nodes. No bowel or fat containing inguinal hernias are appreciated. Survey imaging of the right lower quadrant demonstrates no free fluid. The appendix was not definitely identified related to overlying bowel gas. If there is high clinical concern for acute appendicitis, CT is recommended for further evaluation. IMPRESSION: No sonographic abnormality is evident to correlate with the patient's pain within the right inguinal region. No hernia. Dictated by: Romle Freitas M.D. on 05/23/2020 at 12:43 Approved by: Romel Freitas M.D. on 05/23/2020 at 12:45
[2020-05-23 13:34] LABS: Add Manual Diff / Slide Review NO; Basophils Absolute Auto 0 /uL (0-100); Basophils Percent Auto 0.6 % (0-2); Eosinophils Absolute Auto 0 /uL (0-450); Eosinophils Percent Auto 0.9 % (2-4); Hematocrit 38.2 % (36-46); Hemoglobin 13.1 g/dL (12.0-16.0); Lymphocytes Absolute Auto 1500 /uL (1100-4500); Lymphocytes Percent Auto 29.3 % (25-40); Mean Corpuscular HGB Conc 34.3 % (30-36); Mean Corpuscular Hemoglobin 33.7 PG (26-34); Mean Corpuscular Volume 98.1 fL (80-100); Monocytes Absolute Auto 300 /uL (0-900); Monocytes Percent Auto 5.4 % (3-14); Neutrophils Absolute Auto 3400 /uL (1500-7000); Neutrophils Percent Auto 63.8 % (50-75); Platelet Count 158 X10^3/uL (150-400); Red Blood Cell Count 3.89 X10^6/uL (4.0-5.2); Red Cell Distribution Width 11.8 % (11.6-14.8); White Blood Cell Count 5.3 X10^3/uL (4.5-11.0)
[2020-05-23 13:57] LABS: Alanine Aminotransferase 10 IU/L (<35); Albumin 4.1 g/dL (3.5-5.0); Albumin Globulin Ratio 1.7 (1.0-2.8); Alkaline Phosphatase 49 U/L (38-126); Amylase 44 U/L (30-110); Aspartate Aminotransferase 22 IU/L (14-36); BUN Creatinine Ratio 10.9 (6-22); Bilirubin Total 0.4 mg/dL (0.2-1.3); Blood Urea Nitrogen 7 mg/dL (7-17); Carbon Dioxide 28 mmol/L (22-32); Chloride 105 mmol/L (98-107); Estimated Glomerular Filt Rate > 60.0 mL/min (>60); Globulin 2.4 g/dL (1.7-4.1); Glucose 90 mg/dL (70-100); HEMOLYSIS < 15 (0-50); Lipase 66 U/L (23-300); Potassium 3.6 mmol/L (3.4-5.1); Sodium 137 mmol/L (137-145); Total Protein 6.5 g/dL (6.3-8.2)
[2020-05-23] MEDS: KETOROLAC 60 MG/2 ML VIAL 30 MG IV (14:18)
[2020-05-23 15:10] VITALS: BP 115/78; PULSE 54; RESP 14; O2SAT 99
--- NOTE | 2020-05-23 17:07 | ED.ABDPAIN ---
HPI - Abdominal Pain <TYLER Mclaughlin - Last Filed: 05/23/20 17:13> General Chief Complaint: Abdominal Pain Stated Complaint: HERNIA Time Seen by Provider: 05/23/20 12:29 Source: patient Mode of arrival: Ambulatory Limitations: no limitations History of Present Illness HPI narrative: The patient is a 39-year-old female nonsmoker with history of anxiety and who presents with a chief complaint of right-sided groin pain. She states that she had a hernia repaired in that same spot, and that for the past week it has been bothering her. She states that it got swollen a few days ago that did not go down. Or diarrhea. States she had a bowel movement yesterday was normal. She complains of some urinary urgency, and frequency but no dysuria she has not followed up with primary care provider regarding this in person, but was sent here for the possibility of a strangulated hernia given the worsening pain and her complaints of swelling. Related Data Home Medications Medication Instructions Recorded Confirmed lamotrigine 200 mg PO BID #0 06/04/17 09/14/19 buspirone 10 mg tablet 10 mg PO TID 09/14/19 09/14/19 Previous Rx's Medication Instructions Recorded lorazepam [Ativan] 1 mg PO BEDTIME PRN #10 tab 11/21/19 lorazepam [Ativan] 1 mg PO BID PRN #10 tab 04/13/20 ketorolac 10 mg PO TID PRN #14 tab 05/23/20 Allergies Allergy/AdvReac Type Severity Reaction Status Date / Time meperidine [MEPERIDINE] Allergy Severe SEVERE Verified 05/23/20 11:18 SICKNESS morphine [MORPHINE] Allergy Severe SEVERE Verified 05/23/20 11:18 SICKNESS hydroxyzine [From VISTARIL] Allergy Unknown HEART Verified 05/23/20 11:18 RACING sulfamethoxazole AdvReac Mild increased Verified 05/23/20 11:18 [From SEPTRA] symptoms & nausea trimethoprim [From SEPTRA] AdvReac Mild increased Verified 05/23/20 11:18 symptoms & nausea metronidazole [METRONIDAZOLE] AdvReac Unknown ANXIETY Verified 05/23/20 11:18 AND AGITATION Review of Systems <TYLER Mclaughlin - Last Filed: 05/23/20 17:13> Review of Systems Narrative: GENERAL: Denies chills, fatigue, malaise, fever, sweats. HEENT: Denies sinus pain, ear pain, sore throat, difficulty swallowing, dizziness. RESPIRATORY: Denies dyspnea, cough, wheezing, hemoptysis, sputum. CARDIOVASCULAR: Denies chest pain, palpitations, orthopnea, edema, GASTROINTESTINAL: See HPI : Denies dysuria, frequency, incontinence, hematuria, urinary retention. MUSCULOSKELETAL: denies weakness, joint pain, or bony pain SKIN: Denies rash, skin lesions, or other NEUROLOGIC: Denies weakness, headache, numbness, change in speech, confusion, seizures, incoordination. PSYCHIATRIC: No concerning psychosocial issues. 12 point review of systems is negative except for those stated above Patient History <TYLER Mclaughlin - Last Filed: 05/23/20 17:13> Medical History Anxiety (Chronic) Bipolar disorder (Chronic) Chronic pelvic pain in female (Chronic) Depression (Chronic) Surgical History History of surgery on arm (Resolved 1985) Status post hernia repair (Resolved) Status post laparoscopy (Resolved) Social History Smoking Status: Never smoker alcohol intake: never substance use type: marijuana Smoking Status: Never smoker alcohol intake frequency: holidays/special occasions only Substance Use Type: marijuana Exam <TYLER Mclaughlin - Last Filed: 05/23/20 17:13> Narrative Exam Narrative: GENERAL: This is a well-nourished, well-developed patient, no acute distress HEAD: Atraumatic. Normocephalic. No temporal or scalp tenderness. EYES: Pupils equal round and reactive. Extraocular motions intact. No scleral icterus. No injection or drainage. ENT: Nose without bleeding, purulent drainage or septal hematoma. Throat without erythema, tonsillar hypertrophy or exudate. Uvula midline. Airway patent. NECK: Trachea midline. No JVD or lymphadenopathy. Supple, nontender, no meningeal signs. CARDIOVASCULAR: Regular rate and rhythm RESPIRATORY: Clear to auscultation. Breath sounds equal bilaterally. No wheezes, rales, or rhonchi. No cough. No increased respiratory effort. No accessory muscle use. GASTROINTESTINAL: Abdomen soft, diffusely tender, nondistended. No hepato-splenomegaly, or palpable masses. No guarding. Active bowel sounds all 4 quadrants. No hernia palpable right inguinal area. EXTREMITIES: No clubbing, cyanosis, or edema. No joint tenderness, effusion, or edema noted. BACK: Nontender without deformity or crepitance. No flank tenderness. NEURO: AOx3. SKIN: No rash or erythema on visible skin Initial Vital Signs Initial Vital Signs: Vital Signs Temperature 98.1 F 05/23/20 11:18 Pulse Rate 71 05/23/20 11:18 Respiratory Rate 16 05/23/20 11:18 Blood Pressure 109/81 05/23/20 11:18 Pulse Oximetry 98 05/23/20 11:18 <Sarah Aguilera DO - Last Filed: 05/23/20 19:31> Initial Vital Signs Initial Vital Signs: Vital Signs Temperature 98.1 F 05/23/20 11:18 Pulse Rate 71 05/23/20 11:18 Respiratory Rate 16 05/23/20 11:18 Blood Pressure 109/81 05/23/20 11:18 Pulse Oximetry 98 05/23/20 11:18 Course <TYLER Mclaughlin - Last Filed: 05/23/20 17:13> Orders Ordered: ED Orders 05/23/20 12:55 US abdomen limited Stat 05/23/20 13:25 Amylase Stat Complete Blood Count AUTO DIFF Stat Comprehensive Metabolic Panel Stat Lipase Stat Discontinued Medications Ketorolac Tromethamine (Toradol) 30 mg IV NOW ONE Stop: 05/23/20 14:05 Last Admin: 05/23/20 14:18 Dose: 30 mg Documented by: IBETH Vital Signs Vital signs: Vital Signs - 8 hr 05/23/20 12:26 05/23/20 12:46 05/23/20 15:10 Pulse Rate 55 L 49 L 54 L Respiratory Rate 16 14 14 Blood Pressure [Right Arm] 118/76 116/76 115/78 Pulse Oximetry 100 100 99 <DO Steven Odonnell Last Filed: 05/23/20 19:31> Orders Ordered: ED Orders 05/23/20 12:55 US abdomen limited Stat 05/23/20 13:25 Amylase Stat Complete Blood Count AUTO DIFF Stat Comprehensive Metabolic Panel Stat Lipase Stat Discontinued Medications Ketorolac Tromethamine (Toradol) 30 mg IV NOW ONE Stop: 05/23/20 14:05 Last Admin: 05/23/20 14:18 Dose: 30 mg Documented by: IBETH Vital Signs Vital signs: Vital Signs - 8 hr 05/23/20 12:26 05/23/20 12:46 05/23/20 15:10 Pulse Rate 55 L 49 L 54 L Respiratory Rate 16 14 14 Blood Pressure [Right Arm] 118/76 116/76 115/78 Pulse Oximetry 100 100 99 MDM - Abdominal Pain <ABEBA Mclaughlin - Last Filed: 05/23/20 17:13> Lab Data Result diagrams: 05/23/20 13:25 05/23/20 13:25 Labs: Lab Results 05/23/20 05/23/20 Range/Units 13:25 13:25 WBC 5.3 (4.5-11.0) X10^3/uL RBC 3.89 L (4.0-5.2) X10^6/uL Hgb 13.1 (12.0-16.0) g/dL Hct 38.2 (36-46) % MCV 98.1 (80-100) fL MCH 33.7 (26-34) PG MCHC 34.3 (30-36) % RDW 11.8 (11.6-14.8) % Plt Count 158 (150-400) X10^3/uL Neut % (Auto) 63.8 (50-75) % Lymph % (Auto) 29.3 (25-40) % [place] % (Auto) 5.4 (3-14) % Eos % (Auto) 0.9 L (2-4) % Baso % (Auto) 0.6 (0-2) % Neut # (Auto) 3400 (9422-0122) /uL Lymph # (Auto) 1500 (4167-7256) /uL [place] # (Auto) 300 (0-900) /uL Eos # (Auto) 0 (0-450) /uL Baso # (Auto) 0 (0-100) /uL Sodium 137 (137-145) mmol/L Potassium 3.6 (3.4-5.1) mmol/L Chloride 105 (98-107) mmol/L Carbon Dioxide 28 (22-32) mmol/L BUN 7 (7-17) mg/dL Creatinine 0.64 (0.52-1.04) mg/dL Estimated GFR > 60.0 (>60) mL/min BUN/Creatinine Ratio 10.9 (6-22) Glucose 90 (70-100) mg/dL Calcium 9.0 (8.4-10.2) mg/dL Total Bilirubin 0.4 (0.2-1.3) mg/dL AST 22 (14-36) IU/L ALT 10 (<35) IU/L Alkaline Phosphatase 49 (38-126) U/L Total Protein 6.5 (6.3-8.2) g/dL Albumin 4.1 (3.5-5.0) g/dL Globulin 2.4 (1.7-4.1) g/dL Albumin/Globulin Ratio 1.7 (1.0-2.8) Amylase 44 (30-110) U/L Lipase 66 (23-300) U/L Point of care testing: Point of Care Testing Test Results Negative Urine Dip Bedside Urine Glucose Negative Bedside Urine Bilirubin - Negative Bedside Urine Ketone - Negative Urine Specific [place] 1.020 Bedside Urine Occult Blood - Negative Bedside Urine pH 6 Bedside Urine Protein +/- 15 Bedside Urine Urobilinogen - Negative Bedside Urine Nitrite - Negative Bedside Urine Leukocytes - Negative Esterase Imaging Data US - abdomen: Radiologist's Impression: [address] [place] [address] Ultrasound Report Signed Patient: Giuseppe Tatum KMR#: [id number] : 1980Acct:[id number] Age/Sex: 39 / FDate of Service: 05/23/20 Loc: ED Accession Number: [id number] Procedure: US abdomen limited Ordering Provider: Maria Alejandra CaputoBC PROCEDURE: US ABDOMEN LIMITED INDICATIONS: RIGHT INGUINAL PAIN TECHNIQUE: Real-time focused scanning was performed of the abdomen at the site of the patient's area of pain within the right inguinal region. COMPARISON: [facility], CT, ABDOMEN/PELVIS WITH CONTRAST, 08/03/2017, 13:06. [facility] Ultrasound, US, US ABDOMEN, 03/27/2016, 14:06. [facility], CR, CHEST 2 VIEW, 11/22/2015, 22:49. [facility], US, ABDOMEN COMPLETE, 11/10/2014, 7:42. FINDINGS: Targeted sonographic imaging was performed at the site of the patient's area of concern, which is located within the right inguinal region. No cystic or solid masses identified. No there are no enlarged lymph nodes. No bowel or fat containing inguinal hernias are appreciated. Survey imaging of the right lower quadrant demonstrates no free fluid. The appendix was not definitely identified related to overlying bowel gas. If there is high clinical concern for acute appendicitis, CT is recommended for further evaluation. IMPRESSION: No sonographic abnormality is evident to correlate with the patient's pain within the right inguinal region. No hernia. Dictated by: Romel Freitas M.D. on 05/23/2020 at 12:43 Approved by: Romel Freitas M.D. on 05/23/2020 at 12:45 MDM Narrative Medical decision making narrative: The patient is a 39-year-old female with history of hernia presents with a chief complaint of ?another hernia. She has no evidence of hernia on exam, or ultrasound. She is hemodynamically stable, does not have an acute abdomen on exam. Her lab work is grossly normal, no leukocytosis. Urine has no signs of infection. She felt much improved after single dose of Toradol in the emergency department. I discussed at length the importance of following up with primary care provider, coming back to the emergency department for any acute concerns such as abdominal pain with fever etcetera. Patient denies any questions or concerns upon discharge and states understanding for return precautions as well as follow-up care. <Sarah Aguilera, DO - Last Filed: 05/23/20 19:31> Lab Data Labs: Lab Results 05/23/20 05/23/20 Range/Units 13:25 13:25 WBC 5.3 (4.5-11.0) X10^3/uL RBC 3.89 L (4.0-5.2) X10^6/uL Hgb 13.1 (12.0-16.0) g/dL Hct 38.2 (36-46) % MCV 98.1 (80-100) fL MCH 33.7 (26-34) PG MCHC 34.3 (30-36) % RDW 11.8 (11.6-14.8) % Plt Count 158 (150-400) X10^3/uL Neut % (Auto) 63.8 (50-75) % Lymph % (Auto) 29.3 (25-40) % [place] % (Auto) 5.4 (3-14) % Eos % (Auto) 0.9 L (2-4) % Baso % (Auto) 0.6 (0-2) % Neut # (Auto) 3400 (1321-6716) /uL Lymph # (Auto) 1500 (3657-7289) /uL [place] # (Auto) 300 (0-900) /uL Eos # (Auto) 0 (0-450) /uL Baso # (Auto) 0 (0-100) /uL Sodium 137 (137-145) mmol/L Potassium 3.6 (3.4-5.1) mmol/L Chloride 105 (98-107) mmol/L Carbon Dioxide 28 (22-32) mmol/L BUN 7 (7-17) mg/dL Creatinine 0.64 (0.52-1.04) mg/dL Estimated GFR > 60.0 (>60) mL/min BUN/Creatinine Ratio 10.9 (6-22) Glucose 90 (70-100) mg/dL Calcium 9.0 (8.4-10.2) mg/dL Total Bilirubin 0.4 (0.2-1.3) mg/dL AST 22 (14-36) IU/L ALT 10 (<35) IU/L Alkaline Phosphatase 49 (38-126) U/L Total Protein 6.5 (6.3-8.2) g/dL Albumin 4.1 (3.5-5.0) g/dL Globulin 2.4 (1.7-4.1) g/dL Albumin/Globulin Ratio 1.7 (1.0-2.8) Amylase 44 (30-110) U/L Lipase 66 (23-300) U/L Point of care testing: Point of Care Testing Test Results Negative Urine Dip Bedside Urine Glucose Negative Bedside Urine Bilirubin - Negative Bedside Urine Ketone - Negative Urine Specific [place] 1.020 Bedside Urine Occult Blood - Negative Bedside Urine pH 6 Bedside Urine Protein +/- 15 Bedside Urine Urobilinogen - Negative Bedside Urine Nitrite - Negative Bedside Urine Leukocytes - Negative Esterase Discharge Plan Departure Patient Disposition: Home Clinical Impression: Right groin pain Discharge Date/Time: 05/23/20 15:20 Instructions: DI for Groin Hernia, DI for Muscle Strain Activity Restrictions/Additional Instructions: Thank you for trusting us with your care today I have given you a prescription of Toradol. This is an NSAID. Do not combine it with other NSAIDs such as Aleve or ibuprofen. I suggest taking it with some food, as it can irritate your stomach. Your lab work, imaging and urinalysis came back with no acute findings. As I discussed, there is no evidence of hernia. Please follow-up with primary care provider in the next few days . Please come back to the emergency department for any acute concerns. Prescriptions: New ketorolac 10 mg tablet 10 mg PO TID PRN (Reason: pain) Qty: 14 RF: 0 No Action lamotrigine 200 MG tablet 200 mg PO BID Qty: 0 RF: 0 buspirone 10 mg tablet 10 mg PO TID RF: 0 lorazepam [Ativan] 1 mg tablet 1 mg PO BEDTIME PRN (Reason: insomnia) Qty: 10 RF: 0 lorazepam [Ativan] 1 mg tablet 1 mg PO BID PRN (Reason: anxiety) Qty: 10 RF: 0 Referrals: Yuri Faith MD [Primary Care Provider] - <Sarah Aguilera DO - Last Filed: 05/23/20 19:31> Cosign ED Attending Abbeyature Attestation: I was immediately available in the department for consultation. Documentation has been reviewed. I agree with assessment and plan.
== END 2020-05-23 15:20 | disposition home or self-care (01) ==
PROVIDERS: Emergency Provider Nurse Practitioner Family; PCP Family Medicine
DX: R10.31 Right lower quadrant pain (principal)
CPT/HCPCS: 36415; 76705; 80053; 81003; 81025; 82150; 83690; 85025; 96374; 99284; J1885

== ENCOUNTER 2020-06-23 09:06 | Emergency (ER) | payer OTHER, SELFPAY ==
[2020-06-23 09:08] VITALS: BP 129/64; PULSE 66; RESP 17; TEMP 37.2; O2SAT 100; BMI 18.4
--- NOTE | 2020-06-23 10:24 | ED_ITS ---
HPI - Anxiety General Chief Complaint: Anxiety Stated Complaint: bad axiety Time Seen by Provider: 06/23/20 10:03 Source: patient and family Mode of arrival: Ambulatory History of Present Illness HPI narrative: CC: acute anxiety. HPI: The patient is a 39 year old female with a chronic history of acute anxiety and multiple visits to the emergency department with acute anxiety. The patient states that this morning she woke up with profuse sweating acutely anxious and unable to get obtuse of thoughts out of her head. She states that the obtuse of thoughts involved children. However she does not feel homicidal or suicidal and does not want to hurt anyone or herself. She appears to be angry and upset with my questions. She states that she is on BuSpar which does not do anything. She states that the only medicine that helps her is Ativan. She is upset with her psychiatrist and does not like her current psychiatrist sane that he does not listen to her. She reports that he discontinued her lorazepam and has put her on other medications which do not work. She states that she feels that nobody is listening to her and will prescribed her lorazepam. She states that that is the only medication that works for her. She feels that the psychiatrist or treating her as though she is a Guinea pig trying all these medications arm on her they do not work. She complains of up profuse sweating with acute anxiety reactions especially when sleeping and when waking up. She denies any fever chills or sweats as well as any nasal drainage sore throat cough shortness of breath chest pain palpitations back ache. She has chronic intermittent nausea without any vomiting. The patient states that she has difficulty sleeping at night and does not eat and has been losing weight. She denies any urinary symptoms. She denies being stating that her menstrual period is about to begin. Old records reveal that the patient was prescribed Lorazepam out of the emergency department 1 mg HS 10. And 1 mg b.i.d. p.r.n. 10. And advised to follow-up with her primary care physician on May 16. Related Data Home Medications Medication Instructions Recorded Confirmed lamotrigine 200 mg PO BID #0 06/04/17 09/14/19 buspirone 10 mg tablet 10 mg PO TID 09/14/19 09/14/19 Previous Rx's Medication Instructions Recorded lorazepam [Ativan] 1 mg PO BEDTIME PRN #10 tab 11/21/19 lorazepam [Ativan] 1 mg PO BID PRN #10 tab 04/13/20 ketorolac 10 mg PO TID PRN #14 tab 05/23/20 lorazepam [Ativan] 1 mg PO BEDTIME PRN #10 tab 06/23/20 lorazepam [Ativan] 1 mg PO BID PRN #10 tab 06/23/20 Allergies Allergy/AdvReac Type Severity Reaction Status Date / Time meperidine [MEPERIDINE] Allergy Severe SEVERE Verified 06/23/20 09:13 SICKNESS morphine [MORPHINE] Allergy Severe SEVERE Verified 06/23/20 09:13 SICKNESS hydroxyzine [From VISTARIL] Allergy Unknown HEART Verified 06/23/20 09:13 RACING sulfamethoxazole AdvReac Mild increased Verified 06/23/20 09:13 [From ] symptoms & nausea trimethoprim [From SEPTRA] AdvReac Mild increased Verified 06/23/20 09:13 symptoms & nausea metronidazole [METRONIDAZOLE] AdvReac Unknown ANXIETY Verified 06/23/20 09:13 AND AGITATION Review of Systems Review of Systems Narrative: Her review of systems were negative except for those mentioned in the history of present illness. Patient History Medical History Anxiety (Chronic) Bipolar disorder (Chronic) Chronic pelvic pain in female (Chronic) Depression (Chronic) Surgical History History of surgery on arm (Resolved 1985) Status post hernia repair (Resolved) Status post laparoscopy (Resolved) Social History Smoking Status: Never smoker alcohol intake: never substance use type: marijuana Smoking Status: Never smoker alcohol intake frequency: holidays/special occasions only Substance Use Type: marijuana Exam Narrative Exam Narrative: PHYSICAL EXAM: CONSTITUTIONAL: Awake, Alert, Oriented, Coherent, acutely anxious and upset. HEAD: AT/NC EENT: PERRL, FROM of eyes. MOUTH:Oral mucosa is moist and pink,. NECK: Supple, no obvious JVD, Trachea is midline without stridor, no palpable LN. SPINE: Palpationof the cervical, Thoracic, Lumbar or Sacral spine reveals no gross deformity or tenderness. No CVA tenderness. THORAX: No deformity, retractions, chest wall tenderness. The patient is not on dressed and the patient is holding her blouse making it difficult for me to listen to her heart on the left side of her body. LUNGS: Clear, symmetrical breath sounds bilaterally both anterior and posteriorly without respiratory distress. HEART: Normal heart tones, regular rhythm and rate without murmur. ABDOMEN: Soft, tender suprapubically grabbing my hand as I was trying to palpate her abdomen. There was no palpable liver spleen or mass noted.. EXTREMITIES: No edema, deformity, tenderness. SKIN: No rash, bruising, petechiae or purpura. NEURO: Awake, alert, oriented, conversive, upset, anxious,cranial nerves II-XII are symmetrical , moves all 4 extremities and is ambulatory. MENTAL HEALTH: Acutely anxious, agitated, and angry. Initial Vital Signs Initial Vital Signs: Vital Signs Temperature 98.9 F 06/23/20 09:08 Pulse Rate 66 06/23/20 09:08 Respiratory Rate 17 06/23/20 09:08 Blood Pressure 129/64 06/23/20 09:08 Pulse Oximetry 100 06/23/20 09:08 Course Orders Ordered: Discontinued Medications Lorazepam (Ativan) 1 mg PO NOW ONE Stop: 06/23/20 10:24 Last Admin: 06/23/20 10:36 Dose: 1 mg Documented by: SCANAPO Vital Signs Vital signs: Vital Signs - 8 hr 06/23/20 09:08 Temperature 98.9 F Pulse Rate 66 Respiratory Rate 17 Blood Pressure 129/64 Pulse Oximetry 100 MDM - Anxiety Lab Data Labs: Lab Results 06/23/20 06/23/20 06/23/20 Range/Units 10:36 10:36 10:43 Urine Color Yellow Urine Appearance Clear Urine pH 5.5 (4.5-8.0) Ur Specific [place] 1.015 (1.000-1.035) Urine Protein Negative (Negative) Urine Glucose (UA) Negative (Negative) g/dL Urine Ketones Negative (NEGATIVE) Urine Occult Blood Negative (Negative) Urine Nitrate Negative (Negative) Urine Bilirubin Negative (NEGATIVE) Urine Urobilinogen 0.2 (0.2) E.U./dL Ur Leukocyte Esterase Negative (NEGATIVE) Urine RBC None seen (0-5/HPF) Urine WBC None seen (0-5/HPF) Urine Bacteria None seen (None) Ur Culture Indicated? Cult not indicated Micro UA Comment Microscopic normal Urine Test Negative (Negative) U Opiates 300ng/mL cut Negative (Negative) Ur Oxycodone Screen Negative (Negative) Urine Methadone Screen Negative (Negative) Ur Barbiturates Screen Negative (Negative) U Tricyclic Antidepress Negative (Negative) Ur Phencyclidine Scrn Negative (Negative) Ur Amphetamines Screen Negative (Negative) U Methamphetamines Scrn Negative (Negative) Ur MDMA Scrn (Ecstasy) Negative (Negative) U Benzodiazepines Scrn Negative (Negative) Urine Cocaine Screen Negative (Negative) U Marijuana (THC) Screen Positive H (Negative) Point of Care Testing Test Results Negative Discharge Plan Departure Patient Disposition: Home Clinical Impression: Anxiety, Irritability and anger, Panic disorder Discharge Date/Time: 06/23/20 11:17 Instructions: DI for Anxiety -- Adult, DI for Panic Disorder Activity Restrictions/Additional Instructions: 1. Follow-up with your primary care physician in the next 6 48-72 hours. 2. Follow-up with your psychiatrist as soon as possible. 3.Take your Buspar as prescribed 4. Take the Ativan as prescribed as a rescue medication. Prescriptions: New lorazepam [Ativan] 1 mg tablet 1 mg PO BEDTIME PRN (Reason: sleep) Qty: 10 RF: 0 lorazepam [Ativan] 1 mg tablet 1 mg PO BID PRN (Reason: anxiety) Qty: 10 RF: 0 No Action lamotrigine 200 MG tablet 200 mg PO BID Qty: 0 RF: 0 buspirone 10 mg tablet 10 mg PO TID RF: 0 lorazepam [Ativan] 1 mg tablet 1 mg PO BEDTIME PRN (Reason: insomnia) Qty: 10 RF: 0 ketorolac 10 mg tablet 10 mg PO TID PRN (Reason: pain) Qty: 14 RF: 0 lorazepam [Ativan] 1 mg tablet 1 mg PO BID PRN (Reason: anxiety) Qty: 10 RF: 0 Referrals: Yuri Faith MD [Primary Care Provider] -
[2020-06-23] MEDS: LORazepam 0.5 MG TABLET 1 MG PO (10:36)
[2020-06-23 10:39] LABS: Bacteria Urine None Seen; RBC Urine None Seen (0-5/HPF); WBC Urine None Seen (0-5/HPF)
[2020-06-23 10:44] LABS: Appearance Urine UA CLEAR; Bilirubin Urine UA NEGATIVE (NEGATIVE); Color Urine UA YELLOW; Glucose Urine UA NEGATIVE (Negative); Ketones Urine UA NEGATIVE (NEGATIVE); Leukocyte Esterase Urine UA NEGATIVE (NEGATIVE); Nitrite Urine UA NEGATIVE (Negative); Occult Blood Urine UA NEGATIVE (Negative); Protein Urine UA NEGATIVE (Negative); Specific Gravity Urine UA 1.015 (1.000-1.035); Urobilinogen Urine UA 0.2 E.U./dL (0.2)
[2020-06-23 10:47] LABS: pH Urine UA 5.5 (4.5-8.0)
[2020-06-23 10:51] LABS: Pregnancy Test Urine Negative (Negative)
[2020-06-23 10:52] LABS: UR Morphine/Opiate cutoff 300 Negative (Negative); Ur Creatinine Normal (Normal); Ur Specific Gravity Normal (Normal); Urine Amphetamines Negative (Negative); Urine Barbiturates Negative (Negative); Urine Benzodiazepines Negative (Negative); Urine Cocaine Negative (Negative); Urine MDMA Negative (Negative); Urine Methadone Negative (Negative); Urine Methamphetamines Negative (Negative); Urine Oxycodone Negative (Negative); Urine Phencyclidine Negative (Negative); Urine Tetrahydrocannabinol Positive (Negative); Urine Tricyclic Antidepressant Negative (Negative); Urine pH Normal (Normal)
[2020-06-23 10:54] LABS: Culture Indicated Urine Cult Not Indicated; Urine Comments Microscopic Normal
[2020-06-23 11:17] VITALS: BP 124/80; PULSE 98; O2SAT 100
== END 2020-06-23 11:17 | disposition home or self-care (01) ==
PROVIDERS: Emergency Provider Emergency Medicine; PCP Family Medicine
DX: F41.0 Panic disorder [episodic paroxysmal anxiety] (principal); R45.4 Irritability and anger
CPT/HCPCS: 80305; 81001; 81025; 99283

== ENCOUNTER 2020-07-20 02:16 | Emergency (ER) | payer OTHER, SELFPAY ==
[2020-07-20 02:22] VITALS: BP 140/81; PULSE 83; RESP 15; TEMP 36.8; O2SAT 96; BMI 18.4
--- NOTE | 2020-07-20 02:22 | ED.GENADULT ---
HPI - General Adult General Chief complaint: Anxiety Stated complaint: mind is racing, wont calm down Time Seen by Provider: 07/20/20 02:17 Source: patient Mode of arrival: Ambulatory Limitations: no limitations History of Present Illness HPI narrative: Patient is a 39-year-old female with a longstanding history of anxiety and PTSD. She is currently under the care by Psychiatry and a counselor. She states she has been dealing with issues this for a long time. She states that she has not been sleeping well recently. Had increase in her anxiety and colic her mind is racing over the past 24 hours. She has been taking her medications. She does not know any specific reason why this is happening. She drove herself to the emergency department. Related Data Home Medications Medication Instructions Recorded Confirmed lamotrigine 200 mg PO BID #0 06/04/17 09/14/19 buspirone 10 mg tablet 10 mg PO TID 09/14/19 09/14/19 Previous Rx's Medication Instructions Recorded lorazepam [Ativan] 1 mg PO BEDTIME PRN #10 tab 11/21/19 lorazepam [Ativan] 1 mg PO BID PRN #10 tab 04/13/20 ketorolac 10 mg PO TID PRN #14 tab 05/23/20 lorazepam [Ativan] 1 mg PO BEDTIME PRN #10 tab 06/23/20 lorazepam [Ativan] 1 mg PO BID PRN #10 tab 06/23/20 Allergies Allergy/AdvReac Type Severity Reaction Status Date / Time meperidine [MEPERIDINE] Allergy Severe SEVERE Verified 06/23/20 09:13 SICKNESS morphine [MORPHINE] Allergy Severe SEVERE Verified 06/23/20 09:13 SICKNESS hydroxyzine [From VISTARIL] Allergy Unknown HEART Verified 06/23/20 09:13 RACING sulfamethoxazole AdvReac Mild increased Verified 06/23/20 09:13 [From SEPTRA] symptoms & nausea trimethoprim [From SEPTRA] AdvReac Mild increased Verified 06/23/20 09:13 symptoms & nausea metronidazole [METRONIDAZOLE] AdvReac Unknown ANXIETY Verified 06/23/20 09:13 AND AGITATION Review of Systems Constitutional Constitutional: Denies fever(s) Cardiovascular Cardiovascular: Denies chest pain, Reports rapid heart rate and Denies dyspnea Respiratory Respiratory: Denies dyspnea Integumentary/Breasts Skin/Breast: Denies rash Psychiatric Psychiatric: Reports anxiety, Reports irritability, Reports panic attacks, Denies homicidal ideation and Denies suicidal ideation Allergic/Immunologic Allergic/Immunologic: Denies urticaria Patient History Medical History Anxiety (Chronic) Bipolar disorder (Chronic) Chronic pelvic pain in female (Chronic) Depression (Chronic) Surgical History History of surgery on arm (Resolved 1985) Status post hernia repair (Resolved) Status post laparoscopy (Resolved) Social History Smoking Status: Never smoker alcohol intake: never substance use type: marijuana Smoking Status: Never smoker alcohol intake frequency: holidays/special occasions only Substance Use Type: marijuana Exam Initial Vital Signs Initial Vital Signs: Vital Signs Temperature 98.2 F 07/20/20 02:22 Pulse Rate 83 07/20/20 02:22 Respiratory Rate 15 07/20/20 02:22 Blood Pressure 140/81 07/20/20 02:22 Pulse Oximetry 96 07/20/20 02:22 Const General: cooperative Limitations: mental status not altered HENMT Head: normal to inspection and normocephalic Resp Effort & Inspection: normal respiratory effort Cardio Rate: regular rate Skin Lesions: no lesions Rashes: no rashes Neuro General: patient alert, patient awake and patient oriented x3 Cognition: normal cognition Speech: speech normal Extrem General: normal to inspection Psych Appearance: grossly normal and well kempt Speech and Movement: agitated Mood: anxious mood Affect: irritable affect and elated Attitude: cooperative Thought Content: suicidality Course Orders Ordered: Discontinued Medications Lorazepam (Ativan) 1 mg PO NOW ONE Stop: 07/20/20 02:28 Last Admin: 07/20/20 02:32 Dose: 1 mg Documented by: KIRK Olanzapine (Zyprexa Zydis) 10 mg PO NOW ONE Stop: 07/20/20 03:06 Last Admin: 07/20/20 03:15 Dose: 10 mg Documented by: KIRK Vital Signs Vital signs: Vital Signs - 8 hr 07/20/20 02:22 07/20/20 04:21 Temperature 98.2 F Pulse Rate 83 62 Respiratory Rate 15 18 Blood Pressure 140/81 104/66 Pulse Oximetry 96 98 Medical Decision Making MDM Narrative Medical decision making narrative: Patient initially was given Ativan without much improvement in her symptoms. Discussed this with her. She was then given Zyprexa which seem to improve her symptoms quite a bit. She denied SI or HI. Patient has been calm after taking the Zyprexa. She actually able to sleep for short period of time. Patient kept in the emergency department secondary the fact that she did not have a ride home. Care turned over to day provider to disposition when awake. Discharge Plan Departure Patient Disposition: Home Clinical Impression: Anxiety Instructions: Anxiety and Panic Attacks (Alternative Therapy) Activity Restrictions/Additional Instructions: Recommend that you continue all of your medications as directed. I also recommend that today when your therapist office opens that you contact therapist to schedule follow-up appointment. Return to the emergency department for any new symptoms Prescriptions: No Action lamotrigine 200 MG tablet 200 mg PO BID Qty: 0 RF: 0 buspirone 10 mg tablet 10 mg PO TID RF: 0 lorazepam [Ativan] 1 mg tablet 1 mg PO BEDTIME PRN (Reason: insomnia) Qty: 10 RF: 0 ketorolac 10 mg tablet 10 mg PO TID PRN (Reason: pain) Qty: 14 RF: 0 lorazepam [Ativan] 1 mg tablet 1 mg PO BID PRN (Reason: anxiety) Qty: 10 RF: 0 lorazepam [Ativan] 1 mg tablet 1 mg PO BEDTIME PRN (Reason: sleep) Qty: 10 RF: 0 lorazepam [Ativan] 1 mg tablet 1 mg PO BID PRN (Reason: anxiety) Qty: 10 RF: 0 Referrals: Yuri Faith MD [Primary Care Provider] -
[2020-07-20] MEDS: LORazepam 0.5 MG TABLET 1 MG PO (02:32)
--- NOTE | 2020-07-20 02:32 | PC.NURSE ---
Patient states she would like to wait to be discharged until her anxiety has decreased.
--- NOTE | 2020-07-20 03:07 | PC.NURSE ---
Patient states ativan does not seem to be giving her relief from her anxiety. MD informed.
[2020-07-20] MEDS: OLANZapine ODT 10 MG TAB PO (03:15)
--- NOTE | 2020-07-20 04:12 | PC.NURSE ---
Patient states that between helped her somewhat. Patient appears to be more calm at this time. Speech slightly slurred, and patient resting in relaxed position. States i just don't want to be alone. Denies needing anything further at this time.
--- NOTE | 2020-07-20 04:20 | PC.NURSE ---
Provided patient another warm blanket and dimmed lights per comfort. Will discharge in the morning.
[2020-07-20 04:21] VITALS: BP 104/66; PULSE 62; RESP 18; O2SAT 98
== END 2020-07-20 09:07 | disposition home or self-care (01) ==
PROVIDERS: Emergency Provider Emergency Medicine; PCP Family Medicine
DX: F41.9 Anxiety disorder, unspecified (principal)
CPT/HCPCS: 99283

== ENCOUNTER 2020-08-20 05:17 | Emergency (ER) | payer OTHER, MEDICAID, SELFPAY ==
[2020-08-20 05:25] VITALS: BP 105/61; PULSE 68; RESP 17; TEMP 36.8; O2SAT 99; BMI 18.4
--- NOTE | 2020-08-20 05:52 | ED_ITS ---
HPI - Psych <Gregorio Wright MD - Last Filed: 08/20/20 18:08> General Chief Complaint: Psychiatric Symptoms Stated Complaint: cant sleep last week Time Seen by Provider: 08/20/20 05:22 Source: patient Mode of arrival: Family Vehicle Limitations: no limitations History of Present Illness HPI Narrative: Patient continues to have trouble with sleeping. Worsened this past week. Has had nightmares. Denies any SI or HI. No hallucinations or delusions. Has been compliant with her medications. Seen here 1 month ago for the same. Given Zyprexa with effect. Patient was like to sleep here and was able to drive home after restful. Denies . Does not want a test. Denies any cardiac issues. No arrhythmias. Does not want EKG. Patient tolerated Zyprexa without any difficulty 1 month ago during visit here. Visits here for anxiety. She did get a new counselor recently but has not obtained a new psychiatrist. Related Data Home Medications Medication Instructions Recorded Confirmed lamotrigine 200 mg PO BID #0 06/04/17 09/14/19 buspirone 10 mg tablet 10 mg PO TID 09/14/19 09/14/19 Previous Rx's Medication Instructions Recorded lorazepam [Ativan] 1 mg PO BEDTIME PRN #10 tab 11/21/19 lorazepam [Ativan] 1 mg PO BID PRN #10 tab 04/13/20 ketorolac 10 mg PO TID PRN #14 tab 05/23/20 lorazepam [Ativan] 1 mg PO BEDTIME PRN #10 tab 06/23/20 lorazepam [Ativan] 1 mg PO BID PRN #10 tab 06/23/20 Allergies Allergy/AdvReac Type Severity Reaction Status Date / Time meperidine [MEPERIDINE] Allergy Severe SEVERE Verified 06/23/20 09:13 SICKNESS morphine [MORPHINE] Allergy Severe SEVERE Verified 06/23/20 09:13 SICKNESS hydroxyzine [From VISTARIL] Allergy Unknown HEART Verified 06/23/20 09:13 RACING sulfamethoxazole AdvReac Mild increased Verified 06/23/20 09:13 [From ] symptoms & nausea trimethoprim [From AUGRA] AdvReac Mild increased Verified 06/23/20 09:13 symptoms & nausea metronidazole [METRONIDAZOLE] AdvReac Unknown ANXIETY Verified 06/23/20 09:13 AND AGITATION Review of Systems <Gregorio Wright MD - Last Filed: 08/20/20 18:08> Review of Systems Narrative: GENERAL: Denies chills, fatigue, malaise, fever, sweats. HEENT: Denies sinus pain, ear pain, sore throat, difficulty swallowing, dizziness. RESPIRATORY: Denies dyspnea, cough, wheezing, hemoptysis, sputum. CARDIOVASCULAR: Denies chest pain, palpitations, orthopnea, edema, GASTROINTESTINAL: Denies nausea, vomiting, abdominal pain, diarrhea, constipation, melena. : Denies dysuria, frequency, incontinence, hematuria, urinary retention. MUSCULOSKELETAL: denies weakness, joint pain, or bony pain SKIN: Denies rash, skin lesions NEUROLOGIC: Denies weakness, headache, numbness, change in speech, confusion, seizures, incoordination. PSYCHIATRIC: Denies SI HI delusions or hallucinations. Complains of insomnia/anxiety ROS Unobtainable: All systems reviewed & are unremarkable except as noted in HPI and below Patient History <Gregorio Wright MD - Last Filed: 08/20/20 18:08> Medical History Anxiety (Chronic) Bipolar disorder (Chronic) Chronic pelvic pain in female (Chronic) Depression (Chronic) Surgical History History of surgery on arm (Resolved 1985) Status post hernia repair (Resolved) Status post laparoscopy (Resolved) Social History Smoking Status: Never smoker alcohol intake: never substance use type: marijuana Smoking Status: Never smoker alcohol intake frequency: holidays/special occasions only Substance Use Type: marijuana Exam <Gregorio Wright MD - Last Filed: 08/20/20 18:08> Narrative Exam Narrative: GENERAL: patient appears stated age. Well-nourished, well- developed patient, in no distress, not toxic HEAD: Atraumatic. Normocephalic. EYES: Pupils equal round and reactive. Extraocular motions intact. No scleral icterus. No injection or drainage. CARDIOVASCULAR: Regular rate and rhythm without murmurs, gallops, or rubs. RESPIRATORY: Clear to auscultation. Breath sounds equal bilaterally. No wheezes, rales, or rhonchi. NEURO: AOx4. SKIN: No rash or erythema of visible areas PSYCH: Patient is slightly anxious. No rapid speech or tangential thigh or pressured speech. No flight of ideas. Denies SI and HI, patient is cooperative, not combative. Not flat affect Initial Vital Signs Initial Vital Signs: Vital Signs Temperature 98.3 F 08/20/20 05:25 Pulse Rate 68 08/20/20 05:25 Respiratory Rate 17 08/20/20 05:25 Blood Pressure 105/61 08/20/20 05:25 Pulse Oximetry 99 08/20/20 05:25 <Sebastien Ross DO - Last Filed: 08/20/20 13:32> Initial Vital Signs Initial Vital Signs: Vital Signs Temperature 98.3 F 08/20/20 05:25 Pulse Rate 68 08/20/20 05:25 Respiratory Rate 17 08/20/20 05:25 Blood Pressure 105/61 08/20/20 05:25 Pulse Oximetry 99 08/20/20 05:25 Course <Gregorio Wright MD - Last Filed: 08/20/20 18:08> Course Course Narrative: 0700 s/o dr ross. Patient sleeping this morning. Given Zyprexa. Patient desires sleepier did finally get rest. Reassess before discharge from the ER Orders Ordered: Discontinued Medications Olanzapine (Zyprexa Zydis) 10 mg PO NOW ONE Stop: 08/20/20 05:52 Last Admin: 08/20/20 06:00 Dose: 10 mg Documented by: RINA Vital Signs Vital signs: Vital Signs - 8 hr 08/20/20 10:00 Respiratory Rate 16 <Sebastien Ross DO - Last Filed: 08/20/20 13:32> Course Course Narrative: patient received in sign out from Dr. Wright. I have no significant additions to his note. She has rested for a few hours and is very comfortable going home. She has return precautions and has had questions answered to her apparent satisfaction Orders Ordered: Discontinued Medications Olanzapine (Zyprexa Zydis) 10 mg PO NOW ONE Stop: 08/20/20 05:52 Last Admin: 08/20/20 06:00 Dose: 10 mg Documented by: RINA Vital Signs Vital signs: Vital Signs - 8 hr 08/20/20 10:00 Respiratory Rate 16 MDM - Psych <Gregorio Wright MD - Last Filed: 08/20/20 18:08> Differential Diagnosis Differential diagnosis: Likely acute anxiety and other (Insomnia) MDM Narrative Medical decision making narrative: At this time patient agrees for medications here as she had last month and did get relief with sleep during course of stay here. Last visit noted by provider that patient did not get relief with Ativan. But did get relief with Zyprexa without any adverse reactions Discharge Plan Departure Patient Disposition: Home Clinical Impression: Anxiety Insomnia Qualifiers: Insomnia type: unspecified Qualified Code(s): G47.00 - Insomnia, unspecified Discharge Date/Time: 08/20/20 09:45 Instructions: DI for Anxiety -- Adult, DI for Insomnia Activity Restrictions/Additional Instructions: Return if worse or if any questions or concerns.. See your counselor and providers as scheduled. Prescriptions: No Action lamotrigine 200 MG tablet 200 mg PO BID Qty: 0 RF: 0 buspirone 10 mg tablet 10 mg PO TID RF: 0 lorazepam [Ativan] 1 mg tablet 1 mg PO BEDTIME PRN (Reason: insomnia) Qty: 10 RF: 0 ketorolac 10 mg tablet 10 mg PO TID PRN (Reason: pain) Qty: 14 RF: 0 lorazepam [Ativan] 1 mg tablet 1 mg PO BID PRN (Reason: anxiety) Qty: 10 RF: 0 lorazepam [Ativan] 1 mg tablet 1 mg PO BEDTIME PRN (Reason: sleep) Qty: 10 RF: 0 lorazepam [Ativan] 1 mg tablet 1 mg PO BID PRN (Reason: anxiety) Qty: 10 RF: 0
[2020-08-20] MEDS: OLANZapine ODT 10 MG TAB PO (06:00)
--- NOTE | 2020-08-20 09:49 | PC.NURSE ---
pt awake, walking, steady gait, pink warm and dry.
[2020-08-20 10:00] VITALS: RESP 16
== END 2020-08-20 09:45 | disposition home or self-care (01) ==
PROVIDERS: Emergency Provider Emergency Medicine
DX: F41.9 Anxiety disorder, unspecified (principal); G47.00 Insomnia, unspecified
CPT/HCPCS: 99283

== ENCOUNTER 2020-09-14 03:33 | Emergency (ER) | payer OTHER, MEDICAID, SELFPAY ==
[2020-09-14 03:39] VITALS: BP 126/61; PULSE 77; RESP 20; TEMP 36.6; O2SAT 98
--- NOTE | 2020-09-14 03:42 | ED.ANXIETY ---
HPI - Anxiety General Chief Complaint: Anxiety Stated Complaint: cant sleep, anxiety Time Seen by Provider: 09/14/20 03:34 Source: patient Mode of arrival: Ambulatory Limitations: no limitations History of Present Illness HPI narrative: 39-year-old female who has been evaluated in this emergency department in the past and 1 time prior by myself for evaluation of anxiety and insomnia here for evaluation of the same symptoms. She states that for the past couple days she has had problems sleeping has had quite a bit of anxiety. She states it is based off a situational issues having to do with family and other things that she does not want 0 specifically talk about. She does have an appointment with a psychiatrist later today. Has been taking all of her medications as directed. Denies any alcohol or drugs. Related Data Home Medications Medication Instructions Recorded Confirmed lamotrigine 200 mg PO BID #0 06/04/17 09/14/19 buspirone 10 mg tablet 10 mg PO TID 09/14/19 09/14/19 Previous Rx's Medication Instructions Recorded lorazepam [Ativan] 1 mg PO BEDTIME PRN #10 tab 11/21/19 lorazepam [Ativan] 1 mg PO BID PRN #10 tab 04/13/20 ketorolac 10 mg PO TID PRN #14 tab 05/23/20 lorazepam [Ativan] 1 mg PO BEDTIME PRN #10 tab 06/23/20 lorazepam [Ativan] 1 mg PO BID PRN #10 tab 06/23/20 Allergies Allergy/AdvReac Type Severity Reaction Status Date / Time meperidine [MEPERIDINE] Allergy Severe SEVERE Verified 06/23/20 09:13 SICKNESS morphine [MORPHINE] Allergy Severe SEVERE Verified 06/23/20 09:13 SICKNESS hydroxyzine [From VISTARIL] Allergy Unknown HEART Verified 06/23/20 09:13 RACING sulfamethoxazole AdvReac Mild increased Verified 06/23/20 09:13 [From SEPTRA] symptoms & nausea trimethoprim [From SEPTRA] AdvReac Mild increased Verified 06/23/20 09:13 symptoms & nausea metronidazole [METRONIDAZOLE] AdvReac Unknown ANXIETY Verified 06/23/20 09:13 AND AGITATION Review of Systems Constitutional Constitutional: Denies headache(s) ENT Ears, Nose, Mouth, and Throat: Denies headache(s) Cardiovascular Cardiovascular: Denies chest pain and Denies dyspnea Respiratory Respiratory: Denies dyspnea Gastrointestinal Gastrointestinal: Denies abdominal pain Neurologic Neurologic: Reports behavioral changes and Denies headache(s) Psychiatric Psychiatric: Reports abnormal sleep pattern, Reports anxiety, Reports behavioral changes, Reports irritability, Reports panic attacks, Denies homicidal ideation and Denies suicidal ideation Hematologic/Lymphatic Hematologic/Lymphatic: Denies easy bleeding and Denies easy bruising Patient History Medical History (Updated 09/14/20 @ 05:23 by Russ Salomon DO) Anxiety (Chronic) Bipolar disorder (Chronic) Chronic pelvic pain in female (Chronic) Depression (Chronic) Surgical History History of surgery on arm (Resolved 1985) Status post hernia repair (Resolved) Status post laparoscopy (Resolved) Social History Smoking Status: Never smoker alcohol intake: never substance use type: marijuana Smoking Status: Never smoker alcohol intake frequency: holidays/special occasions only Substance Use Type: marijuana Exam Initial Vital Signs Initial Vital Signs: Vital Signs Temperature 98 F 09/14/20 03:39 Pulse Rate 77 09/14/20 03:39 Respiratory Rate 20 09/14/20 03:39 Blood Pressure 126/61 09/14/20 03:39 Pulse Oximetry 98 09/14/20 03:39 Const General: anxious Limitations: mental status not altered HENMT Head: normal to inspection and normocephalic Resp Effort & Inspection: normal respiratory effort Cardio Rate: regular rate Neuro General: patient alert, patient awake and patient oriented x3 Psych Appearance: grossly normal Speech and Movement: pressured speech and restless Mood: euphoric mood Affect: sad Attitude: cooperative Scores GCS Ольга coma scale eye opening: Spontaneous [place] coma scale verbal response: Orientated [place] coma scale motor response: Obey commands Ольга coma scale total score: 15 Course Orders Ordered: Discontinued Medications Olanzapine (Zyprexa Zydis) 10 mg PO NOW ONE Stop: 09/14/20 03:41 Last Admin: 09/14/20 03:45 Dose: 10 mg Documented by: ANJEL Vital Signs Vital signs: Vital Signs - 8 hr 09/14/20 03:39 Temperature 98 F Pulse Rate 77 Respiratory Rate 20 Blood Pressure 126/61 Pulse Oximetry 98 MDM - Anxiety MDM Narrative Medical decision making narrative: Patient denies SI or HI. Last 2 times she has been in the emergency department Zyprexa seem to help the patient quite a bit and that is what she was given this time. She was given 10 mg p.o.. She was able to calm down and sleep. Upon re-evaluation patient was easily arousable but was very drowsy. She stated that she did not have a ride home and she drove herself here to the emergency department. He will continue to monitor. Care turned over to Dr. Aguilera that 0700 to follow-up and disposition. Discharge Plan Departure Patient Disposition: Home Clinical Impression: Anxiety, Insomnia Instructions: Anxiety Disorders Activity Restrictions/Additional Instructions: Recommend that you continue all of your medications as directed. Keep all of your scheduled medical appointments and I highly recommend he keep her appointment today with your new psychiatrist. Return to the emergency department for any new or worsening symptoms Prescriptions: No Action lamotrigine 200 MG tablet 200 mg PO BID Qty: 0 RF: 0 buspirone 10 mg tablet 10 mg PO TID RF: 0 lorazepam [Ativan] 1 mg tablet 1 mg PO BEDTIME PRN (Reason: insomnia) Qty: 10 RF: 0 ketorolac 10 mg tablet 10 mg PO TID PRN (Reason: pain) Qty: 14 RF: 0 lorazepam [Ativan] 1 mg tablet 1 mg PO BID PRN (Reason: anxiety) Qty: 10 RF: 0 lorazepam [Ativan] 1 mg tablet 1 mg PO BEDTIME PRN (Reason: sleep) Qty: 10 RF: 0 lorazepam [Ativan] 1 mg tablet 1 mg PO BID PRN (Reason: anxiety) Qty: 10 RF: 0
[2020-09-14] MEDS: OLANZapine ODT 10 MG TAB PO (03:45)
--- NOTE | 2020-09-14 05:56 | PC.NURSE ---
Since her complaint was insomnia she was allowed to sleep and not be awakened for vitals.She was observed for breathing and safety but not awakened.
[2020-09-14 06:50] VITALS: BP 100/70; PULSE 58; RESP 16; O2SAT 99
[2020-09-14 09:21] VITALS: BP 100/70; PULSE 60; RESP 16; O2SAT 99
== END 2020-09-14 09:21 | disposition home or self-care (01) ==
PROVIDERS: Emergency Provider Emergency Medicine
DX: F41.9 Anxiety disorder, unspecified (principal); G47.00 Insomnia, unspecified
CPT/HCPCS: 99283

== ENCOUNTER 2020-12-16 04:36 | Emergency (ER) | payer OTHER, MEDICAID, SELFPAY ==
[2020-12-16 04:42] VITALS: BP 126/73; PULSE 66; RESP 16; TEMP 37.2; O2SAT 98; BMI 23.9
--- NOTE | 2020-12-16 04:45 | ED_ITS ---
HPI - Headache General Chief Complaint: Headache Stated Complaint: headache, stomach upset, can't sleep Time Seen by Provider: 12/16/20 04:37 Source: patient Mode of arrival: Ambulatory Limitations: no limitations History of Present Illness HPI Narrative: 40F nonsmoker with a history Related Data Home Medications Medication Instructions Recorded Confirmed lamotrigine 200 mg PO BID #0 06/04/17 09/14/19 buspirone 10 mg tablet 10 mg PO TID 09/14/19 09/14/19 Previous Rx's Medication Instructions Recorded lorazepam [Ativan] 1 mg PO BEDTIME PRN #10 tab 11/21/19 lorazepam [Ativan] 1 mg PO BID PRN #10 tab 04/13/20 ketorolac 10 mg PO TID PRN #14 tab 05/23/20 lorazepam [Ativan] 1 mg PO BEDTIME PRN #10 tab 06/23/20 lorazepam [Ativan] 1 mg PO BID PRN #10 tab 06/23/20 ketorolac 10 mg PO Q6H PRN #14 tab 12/16/20 ondansetron 4 mg PO TID-QID PRN #10 tab 12/16/20 Allergies Allergy/AdvReac Type Severity Reaction Status Date / Time meperidine [MEPERIDINE] Allergy Severe SEVERE Verified 12/16/20 04:42 SICKNESS morphine [MORPHINE] Allergy Severe SEVERE Verified 12/16/20 04:42 SICKNESS hydroxyzine [From VISTARIL] Allergy Unknown HEART Verified 12/16/20 04:42 RACING sulfamethoxazole AdvReac Mild increased Verified 12/16/20 04:42 [From SEPTRA] symptoms & nausea trimethoprim [From SEPTRA] AdvReac Mild increased Verified 12/16/20 04:42 symptoms & nausea metronidazole [METRONIDAZOLE] AdvReac Unknown ANXIETY Verified 12/16/20 04:42 AND AGITATION Patient History Medical History (Updated 12/16/20 @ 05:21 by Sebastien Agosto DO) Anxiety Bipolar disorder Chronic pelvic pain in female Depression Surgical History History of surgery on arm (1985) Status post hernia repair Status post laparoscopy Social History Smoking Status: Never smoker alcohol intake: never substance use type: marijuana Smoking Status: Never smoker alcohol intake frequency: holidays/special occasions only Substance Use Type: marijuana Exam Narrative Exam Narrative: GEN: AOx3 and in mild distress, tearful, anxious EYES: Pupils are equal, round, and reactive to light and accommodation. Extraoccular muscles are intact bilaterally. There is no subconjunctival hemorrhage or exudate. CHEST: Lungs are clear to auscultation bilaterally and free of wheezes, rales, or rhonchi. Heart rate is regular rhythm, there are no murmurs, clicks, rubs, or gallops. There is no chest wall tenderness. ABD: Abdomen is soft and nontender. There is no guarding or rebound. Bowel sounds are normal in all 4 quadrants. There is no mass or organomegaly. EXT: Full painless ROM of all extremities with no loss of sensation or strength. SKIN: Warm, pink, and dry. No erythema or rash NIH Stroke Scale 1a. LOC: Patient is alert and keenly responsive (0) 1b. LOC Questions: Patient answers both LOC questions accurately (0) 1c. LOC Commands: Patient performs both tasks correctly (0) 2. Best Gaze: Normal (0) 3. Visual: No visual loss (0) 4. Facial palsy: Normal symmetrical movements (0) 5. Motor arm: No drift (0) 6. Motor leg: No drift (0) 7. Limb ataxia: Absent (0) 8. Sensory: Normal (0) 9. Best language: No aphasia; normal (0) 10. Dysarthria: Normal (0) 11. Extinction and inattention: No abnormality (0) NIHSS: 0 Initial Vital Signs Initial Vital Signs: Vital Signs Temperature 98.9 F 12/16/20 04:42 Pulse Rate 66 12/16/20 04:42 Respiratory Rate 16 12/16/20 04:42 Blood Pressure 126/73 12/16/20 04:42 Pulse Oximetry 98 12/16/20 04:42 Course Orders Ordered: Discontinued Medications Diphenhydramine HCl (Diphenhydramine 25 Mg Tablet) 50 mg PO NOW ONE Stop: 12/16/20 05:18 Last Admin: 12/16/20 05:21 Dose: 50 mg Documented by: Ketorolac Tromethamine (Ketorolac 60 Mg/2 Ml Vial) 30 mg IM NOW ONE Stop: 12/16/20 04:46 Last Admin: 12/16/20 04:57 Dose: 30 mg Documented by: Ondansetron HCl (Ondansetron 4 Mg Odt Prepack) 1 bottle [facility] [place] SEEINSTR ONE Stop: 12/16/20 04:46 Last Admin: 12/16/20 04:57 Dose: 1 bottle Documented by: Vital Signs Vital signs: Vital Signs - 8 hr 12/16/20 04:42 Temperature 98.9 F Pulse Rate 66 Respiratory Rate 16 Blood Pressure 126/73 Pulse Oximetry 98 MDM - Headache MDM Narrative Medical decision making narrative: Patient with no red flag elements to her headache. She denies sudden onset, photophobia, neck pain, fever, use of blood thinners and has no neurologic findings otherwise. She recently started Flagyl to treat bacterial vaginosis and has had a decreased appetite. She has had nausea and vomited twice and her headache is likely multifactorial. She has improvement with above-stated therapies at a very reassuring exam. She has been given return precautions and has had questions answered to her apparent satisfaction. Discharge Plan Departure Patient Disposition: Home Clinical Impression: Insomnia Qualifiers: Insomnia type: unspecified Qualified Code(s): G47.00 - Insomnia, unspecified Headache Qualifiers: Headache type: unspecified Headache chronicity pattern: acute headache Intractability: not intractable Qualified Code(s): R51.9 - Headache, unspecified Instructions: DI for Headache Activity Restrictions/Additional Instructions: There is no evidence of an emergent or life threatening illness at this time, but follow up with your doctor in 1-2 days is recommended nonetheless to continue to rule out serious underlying causes of your symptoms. Please call the office for an appointment. Please return to the Emergency Department for any worsening or persistent symptoms. Please take medications as directed. Prescriptions: New ketorolac 10 mg tablet 10 mg PO Q6H PRN (Reason: pain) Qty: 14 RF: 0 ondansetron 4 mg tablet,disintegrating 4 mg PO TID-QID PRN (Reason: nausea and vomiting) Qty: 10 RF: 0 No Action lamotrigine 200 MG tablet 200 mg PO BID Qty: 0 RF: 0 buspirone 10 mg tablet 10 mg PO TID RF: 0 lorazepam [Ativan] 1 mg tablet 1 mg PO BEDTIME PRN (Reason: insomnia) Qty: 10 RF: 0 ketorolac 10 mg tablet 10 mg PO TID PRN (Reason: pain) Qty: 14 RF: 0 lorazepam [Ativan] 1 mg tablet 1 mg PO BID PRN (Reason: anxiety) Qty: 10 RF: 0 lorazepam [Ativan] 1 mg tablet 1 mg PO BEDTIME PRN (Reason: sleep) Qty: 10 RF: 0 lorazepam [Ativan] 1 mg tablet 1 mg PO BID PRN (Reason: anxiety) Qty: 10 RF: 0
[2020-12-16] MEDS: ONDANSETRON 4 MG ODT PREPACK 1 BOTTLE MISC (04:57)
[2020-12-16] MEDS: KETOROLAC 60 MG/2 ML VIAL 30 MG IM (04:57)
[2020-12-16] MEDS: diphenhydrAMINE 25 MG TABLET 50 MG PO (05:21)
== END 2020-12-16 05:28 | disposition home or self-care (01) ==
PROVIDERS: Emergency Provider Emergency Medicine
DX: G47.00 Insomnia, unspecified (principal); R51.9 Headache, unspecified; F31.9 Bipolar disorder, unspecified
CPT/HCPCS: 96372; 99281; 99283; J1885

== ENCOUNTER 2021-02-09 18:12 | Emergency (ER) | payer OTHER, MEDICAID, SELFPAY ==
[2021-02-09 18:14] VITALS: BP 125/85; PULSE 89; RESP 18; TEMP 36.6; O2SAT 98; BMI 20.9
[2021-02-09] MEDS: HYDROCODONE/ACET 5/325 PREPACK 1 BOTTLE MISC (19:30)
[2021-02-09] MEDS: ONDANSETRON 4 MG ODT PREPACK 1 BOTTLE MISC (19:30)
--- NOTE | 2021-02-09 21:56 | ED_ITS ---
HPI - Dental/Oral <HOSSEIN Nolen - Last Filed: 02/09/21 22:22> General Chief complaint: Dental/Oral Stated complaint: RIGHT SIDE TOOTH PAIN Time Seen by Provider: 02/09/21 18:59 Source: patient Mode of arrival: Family Vehicle Limitations: no limitations History of Present Illness HPI Narrative: This is a 40 year or female, former smoker, who has past medical history significant for bipolar, insomnia, anxiety, depression presents to ED with chief complain of severe dental pain in right-side of mouth. Patient reports she had tooth filling procedure done yesterday and dental office located in [facility] in right lower tooth since then she has been having pain in upper and lower right side mouth that is radiating to right neck and posterior head. She rates pain as 8 to 9/10. She had used 500 mg of Tylenol, ice, Orajel, Anbesol, rinsing brushing her teeth without any improvement. He states was not able to get any sleep last night. She attempted to contact dentist but they are not open today. She denies fever, chills, nausea or vomiting. Patient states she does not take ibuprofen due to virus and many deaths from taking this medication. Related Data Allergies Allergy/AdvReac Type Severity Reaction Status Date / Time meperidine [MEPERIDINE] Allergy Severe SEVERE Verified 02/09/21 18:14 SICKNESS morphine [MORPHINE] Allergy Severe SEVERE Verified 02/09/21 18:14 SICKNESS hydroxyzine [From VISTARIL] Allergy Unknown HEART Verified 02/09/21 18:14 RACING sulfamethoxazole AdvReac Mild increased Verified 02/09/21 18:14 [From ] symptoms & nausea trimethoprim [From SEPTRA] AdvReac Mild increased Verified 02/09/21 18:14 symptoms & nausea metronidazole [METRONIDAZOLE] AdvReac Unknown ANXIETY Verified 02/09/21 18:14 AND AGITATION Review of Systems <HOSSEIN Nolen - Last Filed: 02/09/21 22:22> Review of Systems Narrative: General: Denies fever, chills, fatigue, malaise, sweats. HEENT: See HPI Respiratory: Denies dyspnea, cough, wheezing, hemoptysis, sputum. Cardiovascular: Denies chest pain, palpitations, orthopnea, edema. Gastrointestinal: Denies nausea, vomiting, abdominal pain, diarrhea, c onstipation, melena. : Denies dysuria, frequency, incontinence, hematuria, urinary retention. Musculoskeletal: Denies weakness, joint pain or bony pain. Skin: Denies rash, skin lesions, or other. Neurologic: Denies weakness, (+) posterior headache, numbness, change in speech, confusion, seizures, incoordination. Psychiatric: No concerning psychosocial issues. 12-point review of systems is negative except for those stated above. Patient History <HOSSEIN Nolen - Last Filed: 02/09/21 22:22> Medical History (Updated 02/09/21 @ 19:27 by HOSSEIN Nolen) Anxiety Bipolar disorder Chronic pelvic pain in female Depression Surgical History History of surgery on arm (1985) Status post hernia repair Status post laparoscopy Social History Smoking Status: Former smoker alcohol intake: never substance use type: marijuana Smoking Status: Former smoker alcohol intake frequency: holidays/special occasions only Substance Use Type: marijuana Exam <HOSSEIN Nolen - Last Filed: 02/09/21 22:22> Narrative Exam Narrative: General appearance: well developed, thin appearing in moderate distress with tears and is irritable. Head: normocephalic, atraumatic, no scalp lesions, non-tender. ENT: Hearing grossly intact. Right-sided cheek tender to palpate without swelling, warmth to palpate. Mucous membrane moist, no mucosal lesion. Has a tooth cap/filling on right lower canine tooth without drainage, swelling, redness to gum. Throat without erythema, tonsillar hypertrophy or exudate. Uvula in midline, airway patent. Neck/Thyroid: neck supple, full range of motion, no visible masses or meningeal signs. No JVD, right cervical lymph node tender to palpate without swelling. Skin: no suspicious rashes, lesions over visible areas. Warm and dry and appropriate color for ethnicity. Heart: no clubbing, no cyanosis, no edema. Lungs: Breathing even and unlabored. No stridor. No accessory muscles used. Able to speak in full sentences. Chest: normal shape and expansion. Abdomen: non-obese, non-distended. Neurologic: alert and oriented. Cognitive exam, SURGICAL CORSETIER and PNS grossly intact on informal exam. Psych: good eye contact, normal affect. Initial Vital Signs Initial Vital Signs: Vital Signs Temperature 97.9 F 02/09/21 18:14 Pulse Rate 89 02/09/21 18:14 Respiratory Rate 18 02/09/21 18:14 Blood Pressure 125/85 02/09/21 18:14 Pulse Oximetry 98 02/09/21 18:14 <Zina Lester MD - Last Filed: 02/09/21 23:44> Initial Vital Signs Initial Vital Signs: Vital Signs Temperature 97.9 F 02/09/21 18:14 Pulse Rate 89 02/09/21 18:14 Respiratory Rate 18 02/09/21 18:14 Blood Pressure 125/85 02/09/21 18:14 Pulse Oximetry 98 02/09/21 18:14 Scores <HOSSEIN Nolen - Last Filed: 02/09/21 22:22> GCS Ольга coma scale eye opening: Spontaneous [place] coma scale verbal response: Orientated [place] coma scale motor response: Obey commands Ольга coma scale total score: 15 Course <HOSSEIN Nolen - Last Filed: 02/09/21 22:22> Orders Ordered: Discontinued Medications Hydrocodone Bitart/Acetaminophen (Hydrocodone/Acet 5/325 Prepack) 1 bottle [facility] SEEINSTR ONE Stop: 02/09/21 19:22 Last Admin: 02/09/21 19:30 Dose: 1 bottle Documented by: JACQUES Ondansetron HCl (Ondansetron 4 Mg Odt Prepack) 1 bottle [facility] SEEINSTR ONE Stop: 02/09/21 19:26 Last Admin: 02/09/21 19:30 Dose: 1 bottle Documented by: JACQUES Vital Signs Vital signs: Vital Signs - 8 hr 02/09/21 18:14 Temperature 97.9 F Pulse Rate 89 Respiratory Rate 18 Blood Pressure 125/85 Pulse Oximetry 98 <Zina Lester MD - Last Filed: 02/09/21 23:44> Orders Ordered: Discontinued Medications Hydrocodone Bitart/Acetaminophen (Hydrocodone/Acet 5/325 Prepack) 1 bottle [facility] SEEINSTR ONE Stop: 02/09/21 19:22 Last Admin: 02/09/21 19:30 Dose: 1 bottle Documented by: JACQUES Ondansetron HCl (Ondansetron 4 Mg Odt Prepack) 1 bottle [facility] SEEINSTR ONE Stop: 02/09/21 19:26 Last Admin: 02/09/21 19:30 Dose: 1 bottle Documented by: JACQUSE Vital Signs Vital signs: Vital Signs - 8 hr 02/09/21 18:14 Temperature 97.9 F Pulse Rate 89 Respiratory Rate 18 Blood Pressure 125/85 Pulse Oximetry 98 [facility] - Dental/Oral <HOSSEIN Nolen - Last Filed: 02/09/21 22:22> Differential Diagnosis Differential diagnosis: Likely gingival abscess, toothache and dental abscess Medical Records Attestation: I reviewed the patient's medical records. [facility] Narrative Medical decision making narrative: This is a 40 year female who is very irritable presents to ED with chief complain of right side dental pain in upper and lower mouth after she had a filling procedure done at the [facility] dental clinic. She had taken 500mg Tylenol with topical pain medication without relief. Physical exam unremarkable without swelling, warmth, drainage from the surgical site or adjacent gum. No swelling in cervical lymph nodes. Patient is afebrile. She was not able to contact dentist today and presents to ED for pain management. We discussed in detail about using NSAIDS but she declined due to virus issues and . Patient reports has many allergies that she could not recall all but Morphine but states had taken [place], Vicodine in the past without problems. Patient advised to continue with Tylenol 650-1000 mg at a time up to 3 times a day and a [place] for severe pain. Patient discharged to home with prepack [place] and Zofran and advised to follow-up with dentist as soon as possible. Return precautions discussed with patient and she verbalized understanding in agreement with the treatment plan. Discharge Plan Departure Patient Disposition: Home Clinical Impression: Pain, dental Instructions: DI for Dental Pain Activity Restrictions/Additional Instructions: You have been diagnosed with [dental pain. Physical exam is unremarkable and no indications for severe infection at this time.]. What to do: *Take your medications as directed. Please take [place] which is hydrocodone mixed with Tylenol for severe pain. This can cause drowsiness so please do not drive, drink alcohol, or operate heavy equipments. Also, it can cause constipation so please take precautions. If you get nauseated with this m edication you can take Zofran as needed. You can take Tylenol 650-1000 mg up to 3 times a day as needed for pain. *Follow up with your primary care provider in 2-3 days, call for an appointment. Please contact dentist on Friday to follow-up. Let them know you were seen in the ED and that we asked you to be seen in follow up. *Return to ED if you have any new, worsening, or concerning symptoms, such as [chest pain, breathing difficulty, unable to tolerate fluids, fever, purulent drainage from mouth or any acute concerns]. <Zina Lester MD - Last Filed: 02/09/21 23:44> Cosign ED Attending Cosignature Attestation: I was immediately available in the department for consultation throughout this patient's visit. I agree with documentation as above. Zina Lester MD
== END 2021-02-09 19:33 | disposition home or self-care (01) ==
PROVIDERS: Emergency Provider Nurse Practitioner Family
DX: K08.89 Other specified disorders of teeth and supporting structures (principal)
CPT/HCPCS: 99281; 99283

== ENCOUNTER 2021-06-28 22:56 | Emergency (ER) | payer OTHER, MEDICAID, SELFPAY ==
[2021-06-28 23:11] VITALS: BP 117/76; PULSE 84; RESP 18; TEMP 36.6; O2SAT 97; BMI 22.6
--- NOTE | 2021-06-29 16:47 | ED.EXTPRO ---
HPI - Extremity Problem General Chief complaint: Extremity Problem,Nontraumatic Stated complaint: lt wrist and foot pain, no known injury Source: patient Mode of arrival: Ambulatory Limitations: no limitations Related Data Allergies Allergy/AdvReac Type Severity Reaction Status Date / Time meperidine [MEPERIDINE] Allergy Severe SEVERE Verified 06/28/21 23:10 SICKNESS morphine [MORPHINE] Allergy Severe SEVERE Verified 06/28/21 23:10 SICKNESS hydroxyzine [From VISTARIL] Allergy Unknown HEART Verified 06/28/21 23:10 RACING sulfamethoxazole AdvReac Mild increased Verified 06/28/21 23:10 [From SEPTRA] symptoms & nausea trimethoprim [From SEPTRA] AdvReac Mild increased Verified 06/28/21 23:10 symptoms & nausea metronidazole [METRONIDAZOLE] AdvReac Unknown ANXIETY Verified 06/28/21 23:10 AND AGITATION Patient History Medical History (Updated 06/29/21 @ 01:25 by Truong Davis RN) Anxiety Bipolar disorder Chronic pelvic pain in female Depression Surgical History History of surgery on arm (1985) Status post hernia repair Status post laparoscopy Social History Smoking Status: Former smoker alcohol intake: never substance use type: marijuana Smoking Status: Former smoker alcohol intake frequency: holidays/special occasions only Substance Use Type: marijuana Exam Initial Vital Signs Initial Vital Signs: Vital Signs Temperature 97.9 F 06/28/21 23:11 Pulse Rate 84 06/28/21 23:11 Respiratory Rate 18 06/28/21 23:11 Blood Pressure 117/76 06/28/21 23:11 Pulse Oximetry 97 06/28/21 23:11 Discharge Plan Departure Patient Disposition: Left Without Being Seen Clinical Impression: Patient left before evaluation by physician
== END 2021-06-28 23:25 | disposition left against medical advice (07) ==
PROVIDERS: Emergency Provider Emergency Medicine
CPT/HCPCS: 99281

== ENCOUNTER 2022-01-31 14:28 | Emergency (ER) | payer OTHER, MEDICAID, SELFPAY ==
[2022-01-31 14:39] VITALS: BP 113/80; PULSE 103; RESP 14; TEMP 36.8; O2SAT 98; BMI 18.7
--- NOTE | 2022-01-31 16:10 | ED_ITS ---
HPI - Wound/Laceration <HOSSEIN Worley - Last Filed: 01/31/22 17:06> General Chief Complaint: Wound/Laceration Stated Complaint: Large bump on lt ankle. antiobiotic cream not help Time Seen by Provider: 01/31/22 16:10 Source: patient Mode of arrival: Ambulatory History of Present Illness HPI narrative: 41-year-old female presents to the emergency department for a large bump to her left ankle and states it has been there for approximately 2 weeks and has been getting worse over the last few days. Patient states that she saw provider at her clinic who gave her mupirocin ointment but lesion continues to grow. Patient denies any drainage from the wound, she states she thought it was an ingrown hair but was unable to pull hair out of it. She states her tetanus is up-to-date, she is not taking any oral antibiotics for this. She has been applying mupirocin ointment without any improvement. Patient states she feels fatigued, does not have an appetite denies a fever, abdominal pain, or vomiting. Related Data Previous Rx's Medication Instructions Recorded doxycycline hyclate 100 mg capsule 100 mg PO BID #14 cap 01/31/22 doxycycline hyclate 100 mg capsule 100 mg PO BID 7 Days #14 cap 01/31/22 naproxen 500 mg tablet 500 mg PO BID PRN #20 tab 01/31/22 ondansetron 4 mg disintegrating 4 mg PO BEDTIME PRN #10 tab 01/31/22 tablet Allergies Allergy/AdvReac Type Severity Reaction Status Date / Time meperidine [MEPERIDINE] Allergy Severe SEVERE Verified 01/31/22 14:39 SICKNESS morphine [MORPHINE] Allergy Severe SEVERE Verified 01/31/22 14:39 SICKNESS hydroxyzine [From VISTARIL] Allergy Unknown HEART Verified 01/31/22 14:39 RACING sulfamethoxazole AdvReac Mild increased Verified 01/31/22 14:39 [From AUGRA] symptoms & nausea trimethoprim [From SEPTRA] AdvReac Mild increased Verified 01/31/22 14:39 symptoms & nausea metronidazole [METRONIDAZOLE] AdvReac Unknown ANXIETY Verified 01/31/22 14:39 AND AGITATION Review of Systems <HOSSEIN Worley - Last Filed: 01/31/22 17:06> Review of Systems Narrative: General: denies fever, chills, malaise, sweats, fatigue Head/Neck: denies headache, neck pain, dizziness Eyes: denies visual changes, eye pain Cardio: denies chest pain, palpitations, edema Respiratory: denies dyspnea, cough, orthopnea GI: denies abdominal pain, nausea, vomiting, or diarrhea : denies dysuria, hematuria, urinary retention, frequency or incontinence MSK: denies joint pain, muscle weakness Skin: Abscess to left lower leg, surrounding erythema and pain, no lower extremity edema Neuro: denies numbness, tingling Patient History <HOSSEIN Worley - Last Filed: 01/31/22 17:06> Medical History (Updated 01/31/22 @ 16:59 by HOSSEIN Worley) Anxiety Bipolar disorder Chronic pelvic pain in female Depression Surgical History History of surgery on arm (1985) Status post hernia repair Status post laparoscopy Social History Smoking Status: Former smoker alcohol intake: never substance use type: marijuana Smoking Status: Former smoker alcohol intake frequency: holidays/special occasions only Substance Use Type: does not use Exam <HOSSEIN Worley - Last Filed: 01/31/22 17:06> Narrative Exam Narrative: Independently reviewed vitals signs and nursing notes. General: Cooperative, comfortable, in no acute distress, well developed and well groomed Head/Neck: Normal visual inspection and supple, atraumatic, no JVD or lymphadenopathy. Normal facial exam Eyes: Pupils equal round and reactive, EOMI, conjunctiva normal, no scleral icterus or injections Nose: External nose normal, nares patent, no rhinorrhea, without purulent drainage Mouth/Throat: uvula midline, moist mucus membranes Cardio: Regular rate and rhythm, no peripheral edema, warm extremities Respiratory: Normal respiratory effort, able to speak in complete sentences without audible wheezing, stridor, or rales. No retractions. GI: Abdomen soft, nontender to palpation x4 quadrants, nondistended, no masses or exquisite tenderness with exam, no flank tenderness MSK: Moves all extremities, neurovascularly intact Skin: Normal capillary refill, no rash, left lower leg with a 2 cm abscess on the anterior aspect. Tenderness to palpation, surrounding erythema, mild edema, no dependent edema. Neuro: Normal speech and cognition, normal gait, A&O x3, tone normal, moves all extremities Psych: Mental status is grossly normal, speech is clear, congruent mood, normal affect Initial Vital Signs Initial Vital Signs: Vital Signs Temperature 98.2 F 01/31/22 14:39 Pulse Rate 103 H 01/31/22 14:39 Respiratory Rate 14 01/31/22 14:39 Blood Pressure 113/80 01/31/22 14:39 Pulse Oximetry 98 01/31/22 14:39 <Sarah Aguilera DO - Last Filed: 02/05/22 07:38> Initial Vital Signs Initial Vital Signs: Vital Signs Temperature 98.2 F 01/31/22 14:39 Pulse Rate 103 H 01/31/22 14:39 Respiratory Rate 14 01/31/22 14:39 Blood Pressure 113/80 01/31/22 14:39 Pulse Oximetry 98 01/31/22 14:39 Procedures <HOSSEIN Worley - Last Filed: 01/31/22 17:06> Abscess I/D I&D #1: Site: lower extremity Side (if applicable): left Local Anesthetic: lidocaine 1% and with bicarb Amount of anesthesia used (mL): 4 Technique: needle aspiration and incised with #11 blade Amount of fluid expressed (mL): 5 Irrigation: Yes Packing used?: none Course <HOSSEIN Worley - Last Filed: 01/31/22 17:06> Orders Ordered: Discontinued Medications Doxycycline Hyclate (Doxycycline Hyclate 100 Mg Tablet) 100 mg PO NOW ONE Stop: 01/31/22 16:24 Last Admin: 01/31/22 16:43 Dose: 100 mg Documented by: DAVID Ketorolac Tromethamine (Ketorolac 30 Mg/Ml Vial) 15 mg IM NOW ONE Stop: 01/31/22 16:24 Last Admin: 01/31/22 16:44 Dose: 15 mg Documented by: ANUPAMATONE Lidocaine/Sodium Bicarbonate (Lido 1%/Sod Bicarb 8.4% (10ml) 10 Ml Syringe) 10 ml INJ NOW ONE Stop: 01/31/22 16:24 Last Admin: 01/31/22 16:42 Dose: 10 ml Documented by: DAVID Ondansetron HCl (Ondansetron 4 Mg Odt) 4 mg SL NOW ONE Stop: 01/31/22 16:24 Last Admin: 01/31/22 16:43 Dose: 4 mg Documented by: DAVID Vital Signs Vital signs: Vital Signs - 8 hr 01/31/22 14:39 Temperature 98.2 F Pulse Rate 103 H Respiratory Rate 14 Blood Pressure 113/80 Pulse Oximetry 98 <Sarah Aguilera DO - Last Filed: 02/05/22 07:38> Orders Ordered: Discontinued Medications Doxycycline Hyclate (Doxycycline Hyclate 100 Mg Tablet) 100 mg PO NOW ONE Stop: 01/31/22 16:24 Last Admin: 01/31/22 16:43 Dose: 100 mg Documented by: DAVID Ketorolac Tromethamine (Ketorolac 30 Mg/Ml Vial) 15 mg IM NOW ONE Stop: 01/31/22 16:24 Last Admin: 01/31/22 16:44 Dose: 15 mg Documented by: DAVID Lidocaine/Sodium Bicarbonate (Lido 1%/Sod Bicarb 8.4% (10ml) 10 Ml Syringe) 10 ml INJ NOW ONE Stop: 01/31/22 16:24 Last Admin: 01/31/22 16:42 Dose: 10 ml Documented by: DAVID Ondansetron HCl (Ondansetron 4 Mg Odt) 4 mg SL NOW ONE Stop: 01/31/22 16:24 Last Admin: 01/31/22 16:43 Dose: 4 mg Documented by: DAVID Vital Signs Vital signs: Vital Signs - 8 hr 01/31/22 14:39 Temperature 98.2 F Pulse Rate 103 H Respiratory Rate 14 Blood Pressure 113/80 Pulse Oximetry 98 MDM - Wound/Laceration <HOSSEIN Worley - Last Filed: 01/31/22 17:06> [facility] Narrative Medical decision making narrative: 41-year-old female presents to the emergency department with left lower leg abscess that has been there for approximately 1.5 weeks. Patient was given mupirocin ointment from her clinic which did not improve the abscess. Today I did an incision and drainage of her left lower leg abscess and removed approximately 5 mL of purulence drainage. There was surrounding erythema and signs of cellulitis without any streaking up her leg, or dependent edema. Patient was given Toradol IM for pain, doxycycline to cover for MRSA, she has a history of a staph infection in the past. She has been afebrile, without signs of sepsis or systemic infection. Patient was given Zofran for nausea, she p.o. challenged and tolerated 8 oz of water, she understands to follow-up with her primary care provider or return to the emergency department for any worsening of this wound. I did not pack the wound, it was small, less than 2 cm, with a very small stab incision from a 11. Blade. Patient is appropriate and amenable to discharge home. Vital signs are stable on repeat examination is unremarkable. Patient has been informed of results. Patient has been given strict return to ER precautions for any new or worsening symptoms. Patient understands to follow up closely with outpatient providers as instructed. Patient understands plan and agrees to discharge home. All questions and concerns answered at this time. Discharge Plan Departure Patient Disposition: Home Clinical Impression: Cellulitis and abscess of left leg Instructions: DI for Wound Infection Activity Restrictions/Additional Instructions: *You have been diagnosed with an abscess of your left lower leg with surrounding cellulitis. Please take the doxycycline twice a day for the next 7 days. You can do warm compresses while the wound is still open to help promote drainage of the pus. Please focus on hydration, take some food with these medications that you have been given, work on drinking water/Pedialyte/Gatorade or anything to help you feel hydrated. Naproxen every 12 hours for pain, he can take Tylenol in addition to this every 6 hours. Please follow-up with your primary care provider in the next week for follow-up unless this is improving and goes away. I hope this gets better without any more delay. You may still apply the mupirocin ointment, this will help prevent worsening infection. Please keep it covered with a Band-Aid at minimum until it heals. *What to do: *Please continue to take your regular medications as directed. [x ] New medication prescriptions sent to your pharmacy: [ [facility]] [ ] New medication written as a paper prescription [ ] No new medications given *Please follow up with your primary care provider in 2-3 days, call for an appointment. Let them know you were seen in the Emergency Department and that we ask that you be seen in follow up. We will electronically transmit a record of today's note if your PCP is in our system *If you do not have a primary care provider please contact the [facility] Resource line at [phone]. They will ask some questions about your medical history and help get you set up with a doctor in the community. *Return to Emergency Department if you should have any new, worsening or concerning symptoms, such as [fever greater than 101F, chills, worsening pain, persistent vomiting or other bothersome symptoms] Prescriptions: New naproxen 500 mg tablet 500 mg PO BID PRN (Reason: pain) Qty: 20 0RF ondansetron 4 mg tablet,disintegrating 4 mg PO BEDTIME PRN (Reason: nausea and vomiting) Qty: 10 0RF doxycycline hyclate 100 mg capsule 100 mg PO BID 7 Days Qty: 14 0RF doxycycline hyclate 100 mg capsule 100 mg PO BID Qty: 14 0RF Referrals: Gregorio Dewey PA-C [Primary Care Provider] - <Sarah Aguilera DO - Last Filed: 02/05/22 07:38> Cosign ED Attending Abbeyature Attestation: I was immediately available in the department for consultation. Documentation has been reviewed. I agree with assessment and plan.
[2022-01-31] MEDS: LIDO 1%/SOD BICARB 8.4% (10ML) 10 ML SYRINGE INJ (16:42)
[2022-01-31] MEDS: ONDANSETRON 4 MG ODT SL (16:43)
[2022-01-31] MEDS: DOXYCYCLINE HYCLATE 100 MG TABLET PO (16:43)
[2022-01-31] MEDS: KETOROLAC 30 MG/ML VIAL 15 MG IM (16:44)
[2022-01-31 17:24] VITALS: PULSE 64; RESP 16; O2SAT 99
== END 2022-01-31 17:24 | disposition home or self-care (01) ==
PROVIDERS: Emergency Provider Nurse Practitioner Critical Care Medicine; PCP Physician Assistant
DX: L02.416 Cutaneous abscess of left lower limb (principal); L03.116 Cellulitis of left lower limb
CPT/HCPCS: 10060; 96372; 99283; 99284; J1885

== ENCOUNTER 2023-03-08 21:32 | Emergency (ER) | payer OTHER, MEDICAID, SELFPAY ==
[2023-03-08 21:36] VITALS: BP 134/80; PULSE 105; RESP 18; TEMP 36.6; O2SAT 100
--- NOTE | 2023-03-08 21:41 | ED.GENADULT ---
HPI - General Adult General Chief complaint: Abdominal Pain Stated complaint: Abdominal Pain Time Seen by Provider: 03/08/23 21:37 Source: patient and EMS Mode of arrival: EMS Limitations: no limitations History of Present Illness HPI narrative: Patient is a 42-year-old female who is here for evaluation of approximately 12 hours of nausea vomiting and diarrhea. She states it initially started his pain in her upper abdomen but now she is got cramping in her lower abdomen as well. No blood in her stool. No recent travel. No recent antibiotics. No fevers. Has not tried anything for her symptoms. Contacted EMS who brought her to the emergency department. She did receive Zofran prior to arrival. Related Data Home Medications Medication Instructions Recorded Confirmed clonazepam 0.5 mg tablet 0.5 mg PO DAILY 03/08/23 03/08/23 famotidine 20 mg tablet 20 mg PO DAILY 03/08/23 03/08/23 Previous Rx's Medication Instructions Recorded ondansetron 4 mg disintegrating 4 mg PO Q6H PRN nausea and 03/08/23 tablet vomiting #10 tabs Allergies Allergy/AdvReac Type Severity Reaction Status Date / Time meperidine [MEPERIDINE] Allergy Severe SEVERE Verified 03/08/23 21:38 SICKNESS morphine [MORPHINE] Allergy Severe SEVERE Verified 03/08/23 21:38 SICKNESS hydroxyzine [From VISTARIL] Allergy Unknown HEART Verified 03/08/23 21:38 RACING sulfamethoxazole AdvReac Mild increased Verified 03/08/23 21:38 [From SEPTRA] symptoms & nausea trimethoprim [From SEPTRA] AdvReac Mild increased Verified 03/08/23 21:38 symptoms & nausea metronidazole [METRONIDAZOLE] AdvReac Unknown ANXIETY Verified 03/08/23 21:38 AND AGITATION Review of Systems Constitutional Constitutional: Reports system reviewed and no additional complaints, except as documented Gastrointestinal Gastrointestinal: Reports system reviewed and no additional complaints, except as documented Genitourinary Genitourinary: Reports system reviewed and no additional complaints, except as documented Integumentary/Breasts Skin/Breast: Reports system reviewed and no additional complaints, except as documented Neurologic Neurologic: Reports system reviewed and no additional complaints, except as documented Patient History Medical History Anxiety Bipolar disorder Chronic pelvic pain in female Depression Surgical History History of surgery on arm (1985) Status post hernia repair Status post laparoscopy Social History Smoking Status: Former smoker alcohol intake: never substance use type: marijuana Smoking Status: Former smoker alcohol intake frequency: a few times a month Substance Use Type: marijuana Exam Initial Vital Signs Initial Vital Signs: Vital Signs Temperature 98 F 03/08/23 21:36 Pulse Rate 105 H 03/08/23 21:36 Respiratory Rate 18 03/08/23 21:36 Blood Pressure 134/80 03/08/23 21:36 Pulse Oximetry 100 03/08/23 21:36 Oxygen Delivery Method Room Air 03/08/23 21:36 Const General: cooperative HENMT Head: normal to inspection GI Inspection: non-distended Palpation: soft, No firm and tender (Diffuse tenderness) Skin General: no rashes or lesions noted Neuro General: patient alert, patient awake and moves all extremities Course Orders Ordered: ED Orders 03/08/23 21:43 CT abdomen pelvis w con Stat 03/08/23 21:45 Complete Blood Count AUTO DIFF Stat Comprehensive Metabolic Panel Stat Lipase Stat Test Serum,Qual Stat 03/08/23 22:15 GI Panel (Film Array) Stat Discontinued Medications Sodium Chloride (Normal Saline 0.9%) 1,000 mls @ 1,000 mls/hr IV BOLUS ONE Stop: 03/08/23 22:40 Last Infusion: 03/08/23 23:08 Dose: 0 mls/hr Documented By: Admin: 03/08/23 22:03 Dose: 1,000 mls/hr Documented By: TESS Ondansetron HCl (Ondansetron 4 Mg Odt Prepack) 1 bottle MISC SEEINSTR ONE Stop: 03/08/23 23:47 Vital Signs Vital signs: Vital Signs - 8 hr 03/08/23 21:36 03/08/23 23:44 Temperature 98 F Pulse Rate 105 H 80 Respiratory Rate 18 18 Blood Pressure 134/80 122/79 Pulse Oximetry 100 97 Oxygen Delivery Method Room Air Room Air Medical Decision Making Lab Data Lab results reviewed: Yes I reviewed the patient's lab results. 03/08/23 21:45 03/08/23 21:45 Labs: Lab Results 03/08/23 03/08/2323 Range/Units 21:45 21:45 21:45 WBC 6.1 (4.5-11.0) X10^3/uL RBC 4.16 (4.0-5.2) X10^6/uL Hgb 13.3 (12.0-16.0) g/dL Hct 39.1 (36-46) % MCV 94.2 (80-100) fL MCH 32.0 (26-34) PG MCHC 34.0 (30-36) % RDW 12.5 (11.6-14.8) % Plt Count 194 (150-400) X10^3/uL Neut % (Auto) 50.4 (50-75) % Lymph % (Auto) 38.7 (25-40) % [place] % (Auto) 6.4 (3-14) % Eos % (Auto) 3.8 (2-4) % Baso % (Auto) 0.7 (0-2) % Neut # (Auto) 3100 (2639-5263) /uL Lymph # (Auto) 2400 (7187-2320) /uL [place] # (Auto) 400 (0-900) /uL Eos # (Auto) 200 (0-450) /uL Baso # (Auto) 0 (0-100) /uL Sodium 138 (137-145) mmol/L Potassium 3.5 (3.4-5.1) mmol/L Chloride 105 (98-107) mmol/L Carbon Dioxide 25 (22-32) mmol/L BUN 5 L (7-17) mg/dL Creatinine 0.64 (0.52-1.04) mg/dL Estimated GFR > 60 (>60) mL/min BUN/Creatinine Ratio 7.8 (6-22) Glucose 105 H (70-100) mg/dL Calcium 8.6 (8.4-10.2) mg/dL Total Bilirubin 0.5 (0.2-1.3) mg/dL AST 24 (14-36) IU/L ALT 19 (<35) IU/L Alkaline Phosphatase 71 (38-126) U/L Total Protein 7.1 (6.3-8.2) g/dL Albumin 4.0 (3.5-5.0) g/dL Globulin 3.1 (1.7-4.1) g/dL Albumin/Globulin Ratio 1.3 (1.0-2.8) Lipase 37 (23-300) U/L Serum , Qual Negative (Negative) Stl C. cayetanensis PCR (Not Detect) Stool Rotavirus (PCR) (Not Detect) Stool Adenovirus (PCR) (Not Detect) Stool Astrovirus (PCR) (Not Detect) Stool Cryptosporidium PCR (Not Detect) Stl E.coli Shiga Tox PCR (Not Detect) St Sh/Enteroin Ecoli PCR (Not Detect) Stool E coli O157 PCR Stl Enterotoxigenic E PCR (Not Detect) Stool EPEC (PCR) (Not Detect) Stl E. histolytica PCR (Not Detect) Stool Giardia Lamblia PCR (Not Detect) Stool Sapovirus (PCR) (Not Detect) Stl P. shigelloides PCR (Not Detect) St Y.enterocolitica PCR (Not Detect) Stool Vibrio (PCR) (Not Detect) Stl Vibrio cholerae PCR (Not Detect) Stl Enteroaggr Ecoli PCR (Not Detect) Stl Norovirus GI/GII PCR (Not Detect) Campylobacter (PCR) (Not Detect) C. difficile Tox (PCR) (Not Detect) Salmonella (PCR) (Not Detect) 03/08/23 Range/Units 22:15 WBC (4.5-11.0) X10^3/uL RBC (4.0-5.2) X10^6/uL Hgb (12.0-16.0) g/dL Hct (36-46) % MCV (80-100) fL MCH (26-34) PG MCHC (30-36) % RDW (11.6-14.8) % Plt Count (150-400) X10^3/uL Neut % (Auto) (50-75) % Lymph % (Auto) (25-40) % [place] % (Auto) (3-14) % Eos % (Auto) (2-4) % Baso % (Auto) (0-2) % Neut # (Auto) (9962-3882) /uL Lymph # (Auto) (4761-6964) /uL [place] # (Auto) (0-900) /uL Eos # (Auto) (0-450) /uL Baso # (Auto) (0-100) /uL Sodium (137-145) mmol/L Potassium (3.4-5.1) mmol/L Chloride (98-107) mmol/L Carbon Dioxide (22-32) mmol/L BUN (7-17) mg/dL Creatinine (0.52-1.04) mg/dL Estimated GFR (>60) mL/min BUN/Creatinine Ratio (6-22) Glucose (70-100) mg/dL Calcium (8.4-10.2) mg/dL Total Bilirubin (0.2-1.3) mg/dL AST (14-36) IU/L ALT (<35) IU/L Alkaline Phosphatase (38-126) U/L Total Protein (6.3-8.2) g/dL Albumin (3.5-5.0) g/dL Globulin (1.7-4.1) g/dL Albumin/Globulin Ratio (1.0-2.8) Lipase (23-300) U/L Serum , Qual (Negative) Stl C. cayetanensis PCR Not detected (Not Detect) Stool Rotavirus (PCR) Not detected (Not Detect) Stool Adenovirus (PCR) Not detected (Not Detect) Stool Astrovirus (PCR) Not detected (Not Detect) Stool Cryptosporidium PCR Not detected (Not Detect) Stl E.coli Shiga Tox PCR Not detected (Not Detect) St Sh/Enteroin Ecoli PCR Not detected (Not Detect) Stool E coli O157 PCR Not Reportable Stl Enterotoxigenic E PCR Not detected (Not Detect) Stool EPEC (PCR) Not detected (Not Detect) Stl E. histolytica PCR Not detected (Not Detect) Stool Giardia Lamblia PCR Not detected (Not Detect) Stool Sapovirus (PCR) Not detected (Not Detect) Stl P. shigelloides PCR Not detected (Not Detect) St Y.enterocolitica PCR Not detected (Not Detect) Stool Vibrio (PCR) Not detected (Not Detect) Stl Vibrio cholerae PCR Not detected (Not Detect) Stl Enteroaggr Ecoli PCR Not detected (Not Detect) Stl Norovirus GI/GII PCR Not detected (Not Detect) Campylobacter (PCR) Not detected (Not Detect) C. difficile Tox (PCR) Not detected (Not Detect) Salmonella (PCR) Not detected (Not Detect) Imaging Data CT scan - abdomen/pelvis: Radiologist's Impression: PROCEDURE:? CT ABDOMEN PELVIS W CON ? INDICATIONS:? Generalized abdominal pain ? TECHNIQUE:? After the administration of intravenous contrast, axial sections acquired from the lung bases to the pubic symphysis.? Coronal and sagittal reformats were performed.? For radiation dose reduction, the following was used:? automated exposure control, adjustment of mA and/or kV according to patient size.? ? COMPARISON:? [facility], CT, ABDOMEN/PELVIS WITH CONTRAST, 08/03/2017, 13:06. ? FINDINGS:? Image quality:? Excellent.? ? Lung bases:? Unremarkable. Heart:? No significant findings. ? ABDOMEN: Liver:? Unremarkable.? ? Gallbladder:? Unremarkable.? ? Biliary ducts:? Unremarkable.? ? Pancreas:? Unremarkable.? ? Spleen:? Unremarkable.? ? Adrenal Glands:? Unremarkable.? ? Kidneys and Ureters:? Unremarkable.? ? ? Stomach and Bowel:? Stomach, small bowel loops, and colon are unremarkable.? Peritoneum:? No abnormal intraperitoneal fluid.? No free air.? ? Ventral Wall: ? No hernias.? Abdominal Nodes:? No retroperitoneal or mesenteric adenopathy by size criteria.? Vessels:? Aorta and inferior vena cava are normal in size.? ? PELVIS: Pelvic Organs:? Unremarkable.? ? Bladder:? Unremarkable.? ? Pelvic Nodes: No enlarged lymph nodes.? Miscellaneous: No hernias are seen. ? ? ? Bones:? Unremarkable.? IMPRESSION:? No acute disease, source of generalized abdominal pain is not found. MDM Narrative Medical decision making narrative: Patient does have a benign exam. Labs unremarkable. CT scan unremarkable. GI panel negative. No indication for antibiotics. No indication for surgical consultation. She did tolerate a small amount of oral intake but was nauseous afterwards but has not had any vomiting since being here in the emergency department. Will send home with a prescription for Zofran. She was given return precautions. She expressed understanding and agreement. Discharge Plan Departure Patient Disposition: Home Clinical Impression: Nausea & vomiting, Diarrhea Instructions: Diarrhea, Nausea and Vomiting-Adult Activity Restrictions/Additional Instructions: Use the nausea/vomiting medicine as needed. Your most likely going to have to take small amounts of fluid at a time for the next couple days. Your diarrhea may continue the next couple days as well. Return to the emergency department for new symptoms. Prescriptions: New ondansetron 4 mg tablet,disintegrating 4 mg PO Q6H PRN (Reason: nausea and vomiting) Qty: 10 0RF No Action clonazepam 0.5 mg tablet 0.5 mg PO DAILY famotidine 20 mg Tablet 20 mg PO DAILY Referrals: Gregorio Dewey PA-C [Non-Staff] - Stand Alone Forms: Patient Portal/API
--- NOTE | 2023-03-08 21:43 | DI.CT.S_ITS ---
PROCEDURE: CT ABDOMEN PELVIS W CON INDICATIONS: Generalized abdominal pain TECHNIQUE: After the administration of intravenous contrast, axial sections acquired from the lung bases to the pubic symphysis. Coronal and sagittal reformats were performed. For radiation dose reduction, the following was used: automated exposure control, adjustment of mA and/or kV according to patient size. COMPARISON: [facility], CT, ABDOMEN/PELVIS WITH CONTRAST, 08/03/2017, 13:06. FINDINGS: Image quality: Excellent. Lung bases: Unremarkable. Heart: No significant findings. ABDOMEN: Liver: Unremarkable. Gallbladder: Unremarkable. Biliary ducts: Unremarkable. Pancreas: Unremarkable. Spleen: Unremarkable. Adrenal Glands: Unremarkable. Kidneys and Ureters: Unremarkable. Stomach and Bowel: Stomach, small bowel loops, and colon are unremarkable. Peritoneum: No abnormal intraperitoneal fluid. No free air. Ventral Wall: No hernias. Abdominal Nodes: No retroperitoneal or mesenteric adenopathy by size criteria. Vessels: Aorta and inferior vena cava are normal in size. PELVIS: Pelvic Organs: Unremarkable. Bladder: Unremarkable. Pelvic Nodes: No enlarged lymph nodes. Miscellaneous: No hernias are seen. Bones: Unremarkable. IMPRESSION: No acute disease, source of generalized abdominal pain is not found. Dictated by: Emir Villela M.D. on 03/08/2023 at 22:04 Approved by: Emir Villela M.D. on 03/08/2023 at 22:05
[2023-03-08 21:59] LABS: Add Manual Diff / Slide Review NO; Basophils Absolute Auto 0 /uL (0-100); Basophils Percent Auto 0.7 % (0-2); Eosinophils Absolute Auto 200 /uL (0-450); Eosinophils Percent Auto 3.8 % (2-4); Hematocrit 39.1 % (36-46); Hemoglobin 13.3 g/dL (12.0-16.0); Lymphocytes Absolute Auto 2400 /uL (1100-4500); Lymphocytes Percent Auto 38.7 % (25-40); Mean Corpuscular Volume 94.2 fL (80-100); Monocytes Absolute Auto 400 /uL (0-900); Monocytes Percent Auto 6.4 % (3-14); Neutrophils Absolute Auto 3100 /uL (1500-7000); Neutrophils Percent Auto 50.4 % (50-75); Platelet Count 194 X10^3/uL (150-400); Red Blood Cell Count 4.16 X10^6/uL (4.0-5.2); Red Cell Distribution Width 12.5 % (11.6-14.8); White Blood Cell Count 6.1 X10^3/uL (4.5-11.0)
[2023-03-08] MEDS: SODIUM CHLORIDE 0.9% 1,000 ML 1000 ML IV (22:03)
[2023-03-08 22:09] LABS: Alanine Aminotransferase 19 IU/L (<35); Albumin Globulin Ratio 1.3 (1.0-2.8); Alkaline Phosphatase 71 U/L (38-126); Aspartate Aminotransferase 24 IU/L (14-36); BUN Creatinine Ratio 7.8 (6-22); Bilirubin Total 0.5 mg/dL (0.2-1.3); Blood Urea Nitrogen 5 mg/dL (7-17); Calcium 8.6 mg/dL (8.4-10.2); Carbon Dioxide 25 mmol/L (22-32); Chloride 105 mmol/L (98-107); Estimated Glomerular Filt Rate > 60 mL/min (>60); Globulin 3.1 g/dL (1.7-4.1); Glucose 105 mg/dL (70-100); HEMOLYSIS < 15 (0-50); Lipase 37 U/L (23-300); Potassium 3.5 mmol/L (3.4-5.1); Sodium 138 mmol/L (137-145); Total Protein 7.1 g/dL (6.3-8.2)
[2023-03-08 22:19] LABS: Pregnancy Test Serum,Qual Negative (Negative)
[2023-03-08 23:42] LABS: Campylobacter Not Detected (Not Detect); Clostridium difficile toxin AB Not Detected (Not Detect); Enteroaggregative E.coli Not Detected (Not Detect); Enteropathogenic E.coli Not Detected (Not Detect); Enterotoxigenic E.coli It/st Not Detected (Not Detect); Plesiomonsa shigelloides Not Detected (Not Detect); Salmonella Not Detected (Not Detect); Shiga-like toxin-prod E.coli Not Detected (Not Detect); Vibrio Not Detected (Not Detect); Vibrio cholerae Not Detected (Not Detect); Yersinia enterocolitica Not Detected (Not Detect)
[2023-03-08 23:43] LABS: Adenovirus F 40/41 Not Detected (Not Detect); Astrovirus Not Detected (Not Detect); Cryptosporidium Not Detected (Not Detect); Cyclospora cayetanensis Not Detected (Not Detect); Entamoeba histolytica Not Detected (Not Detect); Giardia lamblia Not Detected (Not Detect); Norovirus GI/GII Not Detected (Not Detect); Rotavirus A Not Detected (Not Detect); Sapovirus Not Detected (Not Detect); Shigella/Enteroinvasive E.coli Not Detected (Not Detect)
[2023-03-08 23:44] VITALS: BP 122/79; PULSE 80; RESP 18; O2SAT 97
[2023-03-08] MEDS: ONDANSETRON 4 MG ODT PREPACK 1 BOTTLE MISC (23:56)
== END 2023-03-09 | disposition home or self-care (01) ==
PROVIDERS: Emergency Provider Emergency Medicine
DX: R11.2 Nausea with vomiting, unspecified (principal); R19.7 Diarrhea, unspecified; R10.84 Generalized abdominal pain
CPT/HCPCS: 36415; 74177; 80053; 83690; 84703; 85025; 87507; 96360; 99284; Q9967

== ENCOUNTER 2023-03-09 22:48 | Emergency (ER) | payer OTHER, MEDICAID, SELFPAY ==
[2023-03-09 23:10] VITALS: BP 121/92; PULSE 76; RESP 16; TEMP 37; O2SAT 99; BMI 24.7
[2023-03-09 23:37] LABS: Add Manual Diff / Slide Review NO; Basophils Absolute Auto 0 /uL (0-100); Basophils Percent Auto 0.8 % (0-2); Eosinophils Absolute Auto 300 /uL (0-450); Eosinophils Percent Auto 5.3 % (2-4); Hematocrit 39.3 % (36-46); Hemoglobin 13.2 g/dL (12.0-16.0); Lymphocytes Absolute Auto 2000 /uL (1100-4500); Lymphocytes Percent Auto 36.2 % (25-40); Mean Corpuscular HGB Conc 33.7 % (30-36); Mean Corpuscular Hemoglobin 31.8 PG (26-34); Mean Corpuscular Volume 94.4 fL (80-100); Monocytes Absolute Auto 300 /uL (0-900); Monocytes Percent Auto 5.7 % (3-14); Neutrophils Absolute Auto 2900 /uL (1500-7000); Platelet Count 199 X10^3/uL (150-400); Red Blood Cell Count 4.16 X10^6/uL (4.0-5.2); Red Cell Distribution Width 12.9 % (11.6-14.8); White Blood Cell Count 5.5 X10^3/uL (4.5-11.0)
[2023-03-09 23:41] LABS: Alanine Aminotransferase 19 IU/L (<35); Albumin 4.1 g/dL (3.5-5.0); Albumin Globulin Ratio 1.4 (1.0-2.8); Alkaline Phosphatase 71 U/L (38-126); Aspartate Aminotransferase 24 IU/L (14-36); BUN Creatinine Ratio 9.1 (6-22); Bilirubin Total 0.7 mg/dL (0.2-1.3); Blood Urea Nitrogen 6 mg/dL (7-17); Calcium 8.6 mg/dL (8.4-10.2); Carbon Dioxide 26 mmol/L (22-32); Chloride 102 mmol/L (98-107); Estimated Glomerular Filt Rate > 60 mL/min (>60); Glucose 96 mg/dL (70-100); HEMOLYSIS < 15 (0-50); Lipase 41 U/L (23-300); Potassium 3.3 mmol/L (3.4-5.1); Sodium 137 mmol/L (137-145); Total Protein 7.1 g/dL (6.3-8.2)
--- NOTE | 2023-03-10 00:15 | ED.GENADULT ---
HPI - General Adult General Chief complaint: Abdominal Pain Stated complaint: Vomiting Time Seen by Provider: 03/09/23 23:18 Source: patient Mode of arrival: Ambulatory Limitations: no limitations History of Present Illness HPI narrative: Patient is a 42-year-old female who was seen in the emergency department by my self last evening. Had an extensive workup for abdominal pain and vomiting. Was discharged home with Carafate as I felt that most likely her symptoms were GI related. She returns today because she states that her symptoms have not improved. She states she is vomited 1 time today. Has been doing the Carafate as directed. She states that her symptoms are necessarily worse they are just not any better. She is of see varying anxious about the symptoms. Related Data Home Medications Medication Instructions Recorded Confirmed clonazepam 0.5 mg tablet 0.5 mg PO DAILY 03/08/23 03/08/23 famotidine 20 mg tablet 20 mg PO DAILY 03/08/23 03/08/23 Previous Rx's Medication Instructions Recorded ondansetron 4 mg disintegrating 4 mg PO Q6H PRN nausea and 03/08/23 tablet vomiting #10 tabs Allergies Allergy/AdvReac Type Severity Reaction Status Date / Time meperidine [MEPERIDINE] Allergy Severe SEVERE Verified 03/08/23 21:38 SICKNESS morphine [MORPHINE] Allergy Severe SEVERE Verified 03/08/23 21:38 SICKNESS hydroxyzine [From VISTARIL] Allergy Unknown HEART Verified 03/08/23 21:38 RACING sulfamethoxazole AdvReac Mild increased Verified 03/08/23 21:38 [From SEPTRA] symptoms & nausea trimethoprim [From SEPTRA] AdvReac Mild increased Verified 03/08/23 21:38 symptoms & nausea metronidazole [METRONIDAZOLE] AdvReac Unknown ANXIETY Verified 03/08/23 21:38 AND AGITATION Review of Systems Constitutional Constitutional: Reports system reviewed and no additional complaints, except as documented Gastrointestinal Gastrointestinal: Reports system reviewed and no additional complaints, except as documented Genitourinary Genitourinary: Reports system reviewed and no additional complaints, except as documented Musculoskeletal Musculoskeletal: Reports system reviewed and no additional complaints, except as documented Integumentary/Breasts Skin/Breast: Reports system reviewed and no additional complaints, except as documented Neurologic Neurologic: Reports system reviewed and no additional complaints, except as documented Patient History Medical History Anxiety Bipolar disorder Chronic pelvic pain in female Depression Surgical History History of surgery on arm (1985) Status post hernia repair Status post laparoscopy Social History Smoking Status: Former smoker alcohol intake: never substance use type: marijuana Smoking Status: Former smoker alcohol intake frequency: a few times a month Substance Use Type: marijuana Exam Initial Vital Signs Initial Vital Signs: Vital Signs Temperature 98.6 F 03/09/23 23:10 Pulse Rate 76 03/09/23 23:10 Respiratory Rate 16 03/09/23 23:10 Blood Pressure 121/92 H 03/09/23 23:10 Pulse Oximetry 99 03/09/23 23:10 Oxygen Delivery Method Room Air 03/09/23 23:10 HENMT Head: normal to inspection and normocephalic Resp Effort & Inspection: normal respiratory effort Auscultation: clear to auscultation bilaterally Cardio Rate: regular rate Rhythm: regular rhythm GI Inspection: normal to inspection Palpation: soft, No firm and No tender Skin General: no rashes or lesions noted Neuro General: patient alert, patient awake and moves all extremities Extrem General: capillary refill normal Course Orders Ordered: ED Orders 03/09/23 23:20 Complete Blood Count AUTO DIFF Stat Comprehensive Metabolic Panel Stat Lipase Stat Discontinued Medications Al Hydrox/Mg Hydrox/Simethicone 20 ml/ Lidocaine HCl 15 ml 0 ml PO NOW ONE Stop: 03/10/23 00:16 Last Admin: 03/10/23 00:28 Dose: 35 ml Documented By: GC Diphenhydramine HCl (Diphenhydramine 50 Mg/Ml Vial) 25 mg IV NOW ONE Stop: 03/10/23 01:18 Last Admin: 03/10/23 01:25 Dose: 25 mg Documented By: SB Haloperidol (Haloperidol 5 Mg/Ml Vial) 5 mg IV NOW ONE Stop: 03/10/23 01:03 Last Admin: 03/10/23 01:05 Dose: 5 mg Documented By: RL Sodium Chloride (Normal Saline 0.9%) 1,000 mls @ 1,000 mls/hr IV BOLUS ONE Stop: 03/10/23 01:04 Last Infusion: 03/10/23 01:05 Dose: 0 mls/hr Documented By: Admin: 03/10/23 00:27 Dose: 1,000 mls/hr Documented By: NICKY Ondansetron HCl (Ondansetron 4 Mg/2 Ml Inj) 4 mg IV NOW ONE Stop: 03/10/23 00:05 Last Admin: 03/10/23 00:27 Dose: 4 mg Documented By: NICKY Pantoprazole Sodium (Pantoprazole 40 Mg Vial) 40 mg IV NOW ONE Stop: 03/10/23 00:16 Last Admin: 03/10/23 00:28 Dose: 40 mg Documented By: NICKY Vital Signs Vital signs: Vital Signs - 8 hr 03/09/23 23:10 03/10/23 03:00 Temperature 98.6 F Pulse Rate 76 70 Respiratory Rate 16 18 Blood Pressure 121/92 H 134/74 Pulse Oximetry 99 98 Oxygen Delivery Method Room Air Room Air Medical Decision Making Lab Data Lab results reviewed: Yes I reviewed the patient's lab results. 03/09/23 23:20 03/09/23 23:20 Labs: Lab Results 03/09/23 03/09/23 Range/Units 23:20 23:20 WBC 5.5 (4.5-11.0) X10^3/uL RBC 4.16 (4.0-5.2) X10^6/uL Hgb 13.2 (12.0-16.0) g/dL Hct 39.3 (36-46) % MCV 94.4 (80-100) fL MCH 31.8 (26-34) PG MCHC 33.7 (30-36) % RDW 12.9 (11.6-14.8) % Plt Count 199 (150-400) X10^3/uL Neut % (Auto) 52.0 (50-75) % Lymph % (Auto) 36.2 (25-40) % [place] % (Auto) 5.7 (3-14) % Eos % (Auto) 5.3 H (2-4) % Baso % (Auto) 0.8 (0-2) % Neut # (Auto) 2900 (8375-0441) /uL Lymph # (Auto) 2000 (6640-7092) /uL [place] # (Auto) 300 (0-900) /uL Eos # (Auto) 300 (0-450) /uL Baso # (Auto) 0 (0-100) /uL Sodium 137 (137-145) mmol/L Potassium 3.3 L (3.4-5.1) mmol/L Chloride 102 (98-107) mmol/L Carbon Dioxide 26 (22-32) mmol/L BUN 6 L (7-17) mg/dL Creatinine 0.66 (0.52-1.04) mg/dL Estimated GFR > 60 (>60) mL/min BUN/Creatinine Ratio 9.1 (6-22) Glucose 96 (70-100) mg/dL Calcium 8.6 (8.4-10.2) mg/dL Total Bilirubin 0.7 (0.2-1.3) mg/dL AST 24 (14-36) IU/L ALT 19 (<35) IU/L Alkaline Phosphatase 71 (38-126) U/L Total Protein 7.1 (6.3-8.2) g/dL Albumin 4.1 (3.5-5.0) g/dL Globulin 3.0 (1.7-4.1) g/dL Albumin/Globulin Ratio 1.4 (1.0-2.8) Lipase 41 (23-300) U/L MDM Narrative Medical decision making narrative: It seemed that after the Haldol in the Benadryl the patient seem to improve the most. Given her extensive workup yesterday did not feel that we needed to repeat labs or ultrasound or CT scan. Patient did have the a EPS reaction to the Haldol which improved with the Benadryl. I do suspect that her symptoms are GI related and potentially even psychiatric in origin. No indication for surgical consultation. She was advised to continue to take the Carafate and follow up with her primary doctor. Patient states she was feeling well enough to be discharged. Discharge Plan Departure Patient Disposition: Home Clinical Impression: Abdominal pain, Nausea & vomiting Instructions: DI for Abdominal Pain-Adult Activity Restrictions/Additional Instructions: I do recommend that you continue with the Carafate that you were prescribed during your last visit here in the ER. I also recommend that you contact your primary doctor for follow-up as you may need a referral to see Gastroenterology. Return to the emergency department new symptoms. Prescriptions: No Action clonazepam 0.5 mg tablet 0.5 mg PO DAILY famotidine 20 mg Tablet 20 mg PO DAILY ondansetron 4 mg tablet,disintegrating 4 mg PO Q6H PRN (Reason: nausea and vomiting) Qty: 10 0RF Referrals: Miscellaneous,Doctor, MD [Primary Care Provider] - Stand Alone Forms: Patient Portal/API
[2023-03-10] MEDS: SODIUM CHLORIDE 0.9% 1,000 ML 1000 ML IV (00:27)
[2023-03-10] MEDS: ONDANSETRON 4 MG/2 ML INJ IV (00:27)
[2023-03-10] MEDS: MAG HYDROX/ALUMINUM/SIMETH SUS 20 ML, LIDOCAINE VISCOUS 2% 15 ML PO (00:28)
[2023-03-10] MEDS: PANTOPRAZOLE 40 MG VIAL IV (00:28)
[2023-03-10] MEDS: HALOPERIDOL 5 MG/ML VIAL IV (01:05)
[2023-03-10] MEDS: diphenhydrAMINE 50 MG/ML VIAL 25 MG IV (01:25)
[2023-03-10 03:00] VITALS: BP 134/74; PULSE 70; RESP 18; O2SAT 98
== END 2023-03-10 03:18 | disposition home or self-care (01) ==
PROVIDERS: Emergency Provider Emergency Medicine
DX: R10.9 Unspecified abdominal pain (principal); R11.2 Nausea with vomiting, unspecified
CPT/HCPCS: 36415; 80053; 83690; 85025; 96361; 96374; 96375; 99284; C9113; J1200; J1630; J2405

== ENCOUNTER 2023-03-21 23:35 | Emergency (ER) | payer OTHER, MEDICAID, SELFPAY ==
[2023-03-21 23:53] VITALS: BP 140/86; PULSE 78; RESP 22; TEMP 37.1; O2SAT 98; BMI 24.7
[2023-03-22] VITALS (9 sets, daily range): BP systolic 125–133; BP diastolic 72–73; PULSE 87–103; RESP 9–22; O2SAT 98–100
--- NOTE | 2023-03-22 00:03 | ED_ITS ---
HPI - General Adult General Chief complaint: Shortness of Breath/Dyspnea Stated complaint: sob/tight chest Time Seen by Provider: 03/21/23 23:56 Source: patient Mode of arrival: Ambulatory Limitations: no limitations History of Present Illness HPI narrative: Patient is a 42-year-old female who is here for evaluation of upper abdominal pain, nausea and vomiting and diarrhea. She was seen here in the emergency dep artment by myself a couple weeks ago for similar symptoms. She states that she did smoke marijuana this morning but not this afternoon. She has been trying Zofran at home without improvement. Last time she was here she was prescribed Carafate but she states she never received this prescription. She is not followed up since her last visit here in the emergency department. She states she has burning in her epigastric region and also in her throat. No blood in her stool. Related Data Home Medications Medication Instructions Recorded Confirmed clonazepam 0.5 mg tablet 0.5 mg PO DAILY 03/08/23 03/08/23 famotidine 20 mg tablet 20 mg PO DAILY 03/08/23 03/08/23 Previous Rx's Medication Instructions Recorded ondansetron 4 mg disintegrating 4 mg PO Q6H PRN nausea and 03/08/23 tablet vomiting #10 tabs ondansetron 4 mg disintegrating 4 mg PO Q6H PRN nausea and 03/22/23 tablet vomiting #14 tabs sucralfate 100 mg/mL oral 10 ml PO QACHS #414 mL 03/22/23 suspension (Carafate) Allergies Allergy/AdvReac Type Severity Reaction Status Date / Time meperidine [MEPERIDINE] Allergy Severe SEVERE Verified 03/08/23 21:38 SICKNESS morphine [MORPHINE] Allergy Severe SEVERE Verified 03/08/23 21:38 SICKNESS hydroxyzine [From VISTARIL] Allergy Unknown HEART Verified 03/08/23 21:38 RACING haloperidol [From Haldol] Allergy Verified 03/22/23 00:22 sulfamethoxazole AdvReac Mild increased Verified 03/08/23 21:38 [From AUGRA] symptoms & nausea trimethoprim [From SEPTRA] AdvReac Mild increased Verified 03/08/23 21:38 symptoms & nausea metronidazole [METRONIDAZOLE] AdvReac Unknown ANXIETY Verified 03/08/23 21:38 AND AGITATION Review of Systems Constitutional Constitutional: Reports system reviewed and no additional complaints, except as documented Cardiovascular Cardiovascular: Reports system reviewed and no additional complaints, except as documented Respiratory Respiratory: Reports system reviewed and no additional complaints, except as documented Gastrointestinal Gastrointestinal: Reports system reviewed and no additional complaints, except as documented Genitourinary Genitourinary: Reports system reviewed and no additional complaints, except as documented Integumentary/Breasts Skin/Breast: Reports system reviewed and no additional complaints, except as documented Hematologic/Lymphatic On Anticoagulants: No Patient History Medical History Anxiety Bipolar disorder Chronic pelvic pain in female Depression Surgical History History of surgery on arm (1985) Status post hernia repair Status post laparoscopy Social History Smoking Status: Former smoker alcohol intake: never substance use type: marijuana Smoking Status: Former smoker alcohol intake frequency: a few times a month Substance Use Type: marijuana Exam Initial Vital Signs Initial Vital Signs: Vital Signs Temperature 98.8 F 03/21/23 23:53 Pulse Rate 78 03/21/23 23:53 Respiratory Rate 22 03/21/23 23:53 Blood Pressure 140/86 03/21/23 23:53 Pulse Oximetry 98 03/21/23 23:53 Oxygen Delivery Method Room Air 03/21/23 23:53 Const General: cooperative, comfortable and No ill appearing HENMT Head: normal to inspection and normocephalic Resp Effort & Inspection: normal respiratory effort Auscultation: clear to auscultation bilaterally Cardio Rate: regular rate Rhythm: regular rhythm GI Inspection: normal to inspection and non-distended Palpation: soft and tender Skin General: no rashes or lesions noted Neuro General: patient alert, patient awake and moves all extremities Extrem General: normal to inspection and capillary refill normal Psych Appearance: grossly normal and well kempt Course Orders Ordered: ED Orders 03/22/23 00:05 XR chest 1V Stat EKG-12 Lead Stat 03/22/23 00:37 Complete Blood Count AUTO DIFF Stat Comprehensive Metabolic Panel Stat Lipase Stat Test Serum,Qual Stat Troponin & CK Cardiac Panel Stat 03/22/23 01:05 GI Panel (Film Array) Stat Discontinued Medications Sodium Chloride (Normal Saline 0.9%) 1,000 mls @ 1,000 mls/hr IV BOLUS ONE Stop: 03/22/23 01:03 Last Infusion: 03/22/23 01:47 Dose: 0 mls/hr Documented By: Admin: 03/22/23 00:40 Dose: 1,000 mls/hr Documented By: QUINTON Lorazepam (Lorazepam 2 Mg/Ml Inj) 1 mg IV NOW ONE Stop: 03/22/23 01:35 Last Admin: 03/22/23 01:47 Dose: 1 mg Documented By: QUINTON Ondansetron HCl (Ondansetron 4 Mg Odt Prepack) 1 bottle MISC SEEINSTR ONE Stop: 03/22/23 02:57 Last Admin: 03/22/23 03:07 Dose: 1 bottle Documented By: JEWEL Pantoprazole Sodium (Pantoprazole 40 Mg Vial) 40 mg IV NOW ONE Stop: 03/22/23 00:07 Last Admin: 03/22/23 00:39 Dose: 40 mg Documented By: QUINTON Vital Signs Vital signs: Vital Signs - 8 hr 03/21/23 23:53 03/22/23 00:46 03/22/23 00:59 Temperature 98.8 F Pulse Rate 78 100 H 103 H Respiratory Rate 22 21 17 Blood Pressure 140/86 Pulse Oximetry 98 100 100 Oxygen Delivery Method Room Air 03/22/23 00:59 03/22/23 01:00 03/22/23 01:30 Temperature Pulse Rate 91 H 95 H Respiratory Rate 17 Blood Pressure 133/73 Pulse Oximetry 100 99 Oxygen Delivery Method 03/22/23 01:32 03/22/23 01:32 03/22/23 02:00 Temperature Pulse Rate 99 H 89 Respiratory Rate 9 L 22 Blood Pressure 125/73 Pulse Oximetry 100 98 Oxygen Delivery Method 03/22/23 02:30 03/22/23 03:03 03/22/23 03:09 Temperature Pulse Rate 87 98 H Respiratory Rate 20 Blood Pressure 125/72 Pulse Oximetry 100 100 Oxygen Delivery Method 03/22/23 03:09 Temperature Pulse Rate 91 H Respiratory Rate 17 Blood Pressure Pulse Oximetry 100 Oxygen Delivery Method Medical Decision Making Medical Records Medical records reviewed: Yes I reviewed the patient's medical records. Lab Data Lab results reviewed: Yes I reviewed the patient's lab results. 03/22/23 00:37 03/22/23 00:37 Labs: Lab Results 03/22/23 03/22/23 03/22/23 Range/Units 00:37 00:37 00:37 WBC 7.6 (4.5-11.0) X10^3/uL RBC 4.26 (4.0-5.2) X10^6/uL Hgb 13.5 (12.0-16.0) g/dL Hct 39.8 (36-46) % MCV 93.5 (80-100) fL MCH 31.7 (26-34) PG MCHC 34.0 (30-36) % RDW 13.4 (11.6-14.8) % Plt Count 195 (150-400) X10^3/uL Neut % (Auto) 65.6 (50-75) % Lymph % (Auto) 26.1 (25-40) % [place] % (Auto) 5.6 (3-14) % Eos % (Auto) 2.3 (2-4) % Baso % (Auto) 0.4 (0-2) % Neut # (Auto) 5000 (3610-3825) /uL Lymph # (Auto) 2000 (4720-4996) /uL [place] # (Auto) 400 (0-900) /uL Eos # (Auto) 200 (0-450) /uL Baso # (Auto) 0 (0-100) /uL Sodium 138 (137-145) mmol/L Potassium 3.6 (3.4-5.1) mmol/L Chloride 107 (98-107) mmol/L Carbon Dioxide 25 (22-32) mmol/L BUN 5 L (7-17) mg/dL Creatinine 0.56 (0.52-1.04) mg/dL Estimated GFR > 60 (>60) mL/min BUN/Creatinine Ratio 8.9 (6-22) Glucose 118 H (70-100) mg/dL Calcium 8.8 (8.4-10.2) mg/dL Total Bilirubin 0.4 (0.2-1.3) mg/dL AST 21 (14-36) IU/L ALT 16 (<35) IU/L Alkaline Phosphatase 62 (38-126) U/L Total Creatine Kinase 30 (30-135) U/L CK-MB (CK-2) TNP CK-MB (CK-2) Rel Index TNP Troponin I < 0.012 (0.01-0.034) ng/mL Total Protein 7.3 (6.3-8.2) g/dL Albumin 4.2 (3.5-5.0) g/dL Globulin 3.1 (1.7-4.1) g/dL Albumin/Globulin Ratio 1.4 (1.0-2.8) Lipase 76 (23-300) U/L Serum , Qual Negative (Negative) Point of Care Testing Test Results Negative Urine Dip Bedside Urine Glucose Negative Bedside Urine Bilirubin - Negative Bedside Urine Ketone - Negative Urine Specific [place] 1.005 Bedside Urine Occult Blood - Negative Bedside Urine pH 7.5 Bedside Urine Protein - Negative Bedside Urine Urobilinogen - Negative Bedside Urine Nitrite - Negative Bedside Urine Leukocytes - Negative Esterase Point of care testing: Point of Care Testing Test Results Negative Urine Dip Bedside Urine Glucose Negative Bedside Urine Bilirubin - Negative Bedside Urine Ketone - Negative Urine Specific [place] 1.005 Bedside Urine Occult Blood - Negative Bedside Urine pH 7.5 Bedside Urine Protein - Negative Bedside Urine Urobilinogen - Negative Bedside Urine Nitrite - Negative Bedside Urine Leukocytes - Negative Esterase ECG Data Attestation: I personally reviewed and interpreted this ECG as follows: Interpretation: Sinus rhythm Ventricular rate 97 Normal axis Normal QRS Normal QTC No ST T wave changes MDM Narrative Medical decision making narrative: After medications here in the emergency department specifically the Ativan her symptoms did improve. She was able to tolerate oral intake. Her labs are unremarkable. We will hold on further radiologic studies. She presents today very similar to what she did a couple weeks ago. I do have a high suspicion that anxiety plays a role in her symptoms that it did seem to be the Ativan that made the biggest difference today. Last time she was here was Haldol that helped her symptoms. This very well could be cannabis hyperemesis as well. I have low suspicion for bowel obstruction or other inter abdominal acute surgical pathology. She states that she did not receive the prescription for the Carafate that was written for her the last time she was here. I made sure that this evening it was sent to the pharmacy of her choice. She was instructed to pick it up and start taking as directed. She was given return precautions and follow-up instructions. She expressed understanding and agreement. Discharge Plan Departure Patient Disposition: Home Clinical Impression: Abdominal pain, Nausea and vomiting Instructions: DI for Abdominal Pain-Adult, Nausea and Vomiting-Adult Activity Restrictions/Additional Instructions: Your medications were electronically transmitted to [facility] in [place] per your request. I recommend that you take them as directed. Recommend you contact your primary doctor for a follow-up. I also recommend follow-up with the automatic oven operator. Return to the emergency department for new symptoms. You can contact the diabetes education and nutrition Department at [phone]. Prescriptions: New ondansetron 4 mg tablet,disintegrating 4 mg PO Q6H PRN (Reason: nausea and vomiting) Qty: 14 0RF sucralfate [Carafate] 100 mg/mL suspension 10 ml PO QACHS Qty: 414 2RF No Action clonazepam 0.5 mg tablet 0.5 mg PO DAILY famotidine 20 mg Tablet 20 mg PO DAILY ondansetron 4 mg tablet,disintegrating 4 mg PO Q6H PRN (Reason: nausea and vomiting) Qty: 10 0RF Referrals: Jessica Galvan MD [Primary Care Provider] - Stand Alone Forms: Patient Portal/API
--- NOTE | 2023-03-22 00:05 | DI.RAD.S_ITS ---
PROCEDURE: XR CHEST 1V INDICATIONS: sob TECHNIQUE: One view of the chest was acquired. COMPARISON: [facility], CR, CHEST 2 VIEW, 11/22/2015, 22:49. [facility], CR, XR CHEST 2 VIEWS, 10/24/2021, 13:52. FINDINGS: Surgical changes and devices: None. Lungs and pleura: Lungs are clear. No pleural effusions or pneumothorax. Mediastinum: Mediastinal contours appear normal. Heart size is normal. Bones and chest wall: No suspicious bony lesions. Overlying soft tissues appear unremarkable. IMPRESSION: No acute radiographic abnormality Dictated by: Sadiq Troncoso M.D. on 03/22/2023 at 0:40 Approved by: Sadiq Troncoso M.D. on 03/22/2023 at 0:40
[2023-03-22] MEDS: PANTOPRAZOLE 40 MG VIAL IV (00:39)
[2023-03-22] MEDS: SODIUM CHLORIDE 0.9% 1,000 ML 1000 ML IV (00:40)
[2023-03-22 00:55] LABS: Add Manual Diff / Slide Review NO; Basophils Absolute Auto 0 /uL (0-100); Basophils Percent Auto 0.4 % (0-2); Eosinophils Absolute Auto 200 /uL (0-450); Eosinophils Percent Auto 2.3 % (2-4); Hematocrit 39.8 % (36-46); Hemoglobin 13.5 g/dL (12.0-16.0); Lymphocytes Absolute Auto 2000 /uL (1100-4500); Lymphocytes Percent Auto 26.1 % (25-40); Mean Corpuscular Hemoglobin 31.7 PG (26-34); Mean Corpuscular Volume 93.5 fL (80-100); Monocytes Absolute Auto 400 /uL (0-900); Monocytes Percent Auto 5.6 % (3-14); Neutrophils Absolute Auto 5000 /uL (1500-7000); Neutrophils Percent Auto 65.6 % (50-75); Platelet Count 195 X10^3/uL (150-400); Red Blood Cell Count 4.26 X10^6/uL (4.0-5.2); Red Cell Distribution Width 13.4 % (11.6-14.8); White Blood Cell Count 7.6 X10^3/uL (4.5-11.0)
[2023-03-22 00:58] LABS: Alanine Aminotransferase 16 IU/L (<35); Albumin 4.2 g/dL (3.5-5.0); Albumin Globulin Ratio 1.4 (1.0-2.8); Alkaline Phosphatase 62 U/L (38-126); Aspartate Aminotransferase 21 IU/L (14-36); BUN Creatinine Ratio 8.9 (6-22); Bilirubin Total 0.4 mg/dL (0.2-1.3); Blood Urea Nitrogen 5 mg/dL (7-17); Calcium 8.8 mg/dL (8.4-10.2); Carbon Dioxide 25 mmol/L (22-32); Chloride 107 mmol/L (98-107); Creatine Kinase 30 U/L (30-135); Estimated Glomerular Filt Rate > 60 mL/min (>60); Globulin 3.1 g/dL (1.7-4.1); Glucose 118 mg/dL (70-100); HEMOLYSIS 18 (0-50); Lipase 76 U/L (23-300); Potassium 3.6 mmol/L (3.4-5.1); Sodium 138 mmol/L (137-145); Total Protein 7.3 g/dL (6.3-8.2)
[2023-03-22 01:09] LABS: Pregnancy Test Serum,Qual Negative (Negative); Troponin I < 0.012 ng/mL (0.01-0.034)
[2023-03-22] MEDS: LORazepam 2 MG/ML INJ 1 MG IV (01:47)
[2023-03-22] MEDS: ONDANSETRON 4 MG ODT PREPACK 1 BOTTLE MISC (03:07)
[2023-03-22 05:01] LABS: Adenovirus F 40/41 Not Detected (Not Detect); Astrovirus Not Detected (Not Detect); Campylobacter Not Detected (Not Detect); Clostridium difficile toxin AB Not Detected (Not Detect); Cryptosporidium Not Detected (Not Detect); Cyclospora cayetanensis Not Detected (Not Detect); Entamoeba histolytica Not Detected (Not Detect); Enteroaggregative E.coli Not Detected (Not Detect); Enteropathogenic E.coli Not Detected (Not Detect); Enterotoxigenic E.coli It/st Not Detected (Not Detect); Giardia lamblia Not Detected (Not Detect); Norovirus GI/GII Not Detected (Not Detect); Plesiomonsa shigelloides Not Detected (Not Detect); Rotavirus A Not Detected (Not Detect); Salmonella Not Detected (Not Detect); Sapovirus Not Detected (Not Detect); Shiga-like toxin-prod E.coli Not Detected (Not Detect); Shigella/Enteroinvasive E.coli Not Detected (Not Detect); Vibrio Not Detected (Not Detect); Vibrio cholerae Not Detected (Not Detect); Yersinia enterocolitica Not Detected (Not Detect)
== END 2023-03-22 03:15 | disposition home or self-care (01) ==
PROVIDERS: Emergency Provider Emergency Medicine; PCP Family Medicine
DX: R10.10 Upper abdominal pain, unspecified (principal); R11.2 Nausea with vomiting, unspecified; R19.7 Diarrhea, unspecified; R07.9 Chest pain, unspecified
CPT/HCPCS: 71045; 80053; 81003; 81025; 82550; 83690; 84484; 84703; 85025; 87507; 93005; 93010; 96361; 96374; 96375; 99284; C9113; J2060

== ENCOUNTER 2023-03-26 16:45 | Emergency (ER) | payer OTHER, MEDICAID, SELFPAY ==
[2023-03-26] VITALS (8 sets, daily range): BP systolic 126–164; BP diastolic 75–96; PULSE 90–121; RESP 17–29; TEMP 36.8; O2SAT 99–100; BMI 23.9
--- NOTE | 2023-03-26 17:19 | DI.RAD.S_ITS ---
PROCEDURE: XR CHEST 1V INDICATIONS: Shortness of breath TECHNIQUE: One view of the chest was acquired. COMPARISON: [facility], CR, XR CHEST 1V, 03/22/2023, 0:09. [facility], CR, CHEST 2 VIEW, 11/22/2015, 22:49. [facility], CR, XR CHEST 2 VIEWS, 10/24/2021, 13:52. FINDINGS: Surgical changes and devices: None. Lungs and pleura: Lungs are clear. No pleural effusions or pneumothorax. Mediastinum: Mediastinal contours appear normal. Heart size is normal. Bones and chest wall: No suspicious bony lesions. Overlying soft tissues appear unremarkable. IMPRESSION: Normal. Dictated by: Bao Silvestre M.D. on 03/26/2023 at 16:46 Approved by: Bao Silvestre M.D. on 03/26/2023 at 16:47
[2023-03-26 17:48] LABS: Add Manual Diff / Slide Review NO; Basophils Absolute Auto 0 /uL (0-100); Basophils Percent Auto 0.7 % (0-2); Eosinophils Absolute Auto 100 /uL (0-450); Eosinophils Percent Auto 1.1 % (2-4); Hematocrit 42.4 % (36-46); Hemoglobin 14.7 g/dL (12.0-16.0); Lymphocytes Absolute Auto 1300 /uL (1100-4500); Lymphocytes Percent Auto 22.4 % (25-40); Mean Corpuscular HGB Conc 34.5 % (30-36); Mean Corpuscular Hemoglobin 31.9 PG (26-34); Mean Corpuscular Volume 92.5 fL (80-100); Monocytes Absolute Auto 400 /uL (0-900); Monocytes Percent Auto 7.3 % (3-14); Neutrophils Absolute Auto 4000 /uL (1500-7000); Neutrophils Percent Auto 68.5 % (50-75); Platelet Count 225 X10^3/uL (150-400); Red Blood Cell Count 4.59 X10^6/uL (4.0-5.2); Red Cell Distribution Width 12.7 % (11.6-14.8); White Blood Cell Count 5.9 X10^3/uL (4.5-11.0)
[2023-03-26 17:54] LABS: INR 1.2 (0.9-1.3); Prothrombin Time 13.5 SECONDS (10.1-12.7)
[2023-03-26 17:58] LABS: Alanine Aminotransferase 17 IU/L (<35); Albumin 4.5 g/dL (3.5-5.0); Albumin Globulin Ratio 1.3 (1.0-2.8); Alkaline Phosphatase 75 U/L (38-126); Aspartate Aminotransferase 23 IU/L (14-36); BUN Creatinine Ratio 12.9 (6-22); Bilirubin Total 0.7 mg/dL (0.2-1.3); Blood Urea Nitrogen 8 mg/dL (7-17); Calcium 9.2 mg/dL (8.4-10.2); Carbon Dioxide 15 mmol/L (22-32); Chloride 105 mmol/L (98-107); Estimated Glomerular Filt Rate > 60 mL/min (>60); Globulin 3.4 g/dL (1.7-4.1); Glucose 93 mg/dL (70-100); HEMOLYSIS < 15 (0-50); Potassium 3.7 mmol/L (3.4-5.1); Sodium 136 mmol/L (137-145); Total Protein 7.9 g/dL (6.3-8.2)
[2023-03-26 17:59] LABS: Lactate (Lactic Acid) 1.3 mmol/L (0.7-2.1)
[2023-03-26 18:10] LABS: NT-proBNP (BNP-Adult 18+) 14 pg/mL (<125); Troponin I < 0.012 ng/mL (0.01-0.034)
[2023-03-26 18:55] LABS: D Dimer 460 ng/ml (<500)
[2023-03-26 19:04] LABS: Adenovirus Not Detected (Not Detect); B. parapertussis Not Detected (Not Detecte); Bordetella pertussis Not Detected (Not Detecte); Chlamydophila pneumoniae Not Detected (Not Detect); Coronavirus 229E Not Detected (Not Detect); Coronavirus HKU1 Not Detected (Not Detect); Coronavirus NL 63 Not Detected (Not Detect); Coronavirus OC43 Not Detected (Not Detect); Human Metapneumovirus Not Detected (Not Detect); Human Rhinovirus/Enterovirus Detected (Not Detect); Influenza A Not Detected (Not Detect); Influenza B Not Detected (Not Detect); Mycoplasma pneumoniae Not Detected (Not Detect); Parainfluenza Virus 1 Not Detected (Not Detect); Parainfluenza Virus 2 Not Detected (Not Detect); Parainfluenza Virus 3 Not Detected (Not Detect); Parainfluenza Virus 4 Not Detected (Not Detect); Respiratory Syncytial Virus Not Detected (Not Detect); SARS- CoV-2 Not Detected (Not Detecte)
[2023-03-26] MEDS: SODIUM CHLORIDE 0.9% 1,000 ML 1000 ML IV (19:10)
--- NOTE | 2023-03-26 19:23 | ED_ITS ---
HPI - SOB/Dyspnea General Chief Complaint: Shortness of Breath/Dyspnea Stated Complaint: cant breathe/chest hurting/sharp pains Time Seen by Provider: 03/26/23 17:49 Source: patient Mode of arrival: Family Vehicle Limitations: no limitations History of Present Illness HPI Narrative: Patient is a 42-year-old female history acid reflux anxiety presenting today with shortness of breath. She has been seen now 4 times this month. Initially with nausea vomiting diarrhea abdominal symptoms. There was thought to be an anxiety component to this as well. She had some acid reflux as well she was not able to keep down acid reflux medications. Today now presenting with shortness of breath and body aches. She was at the store when she thought she might pass out she was able to drive herself home and then here. She is still does not feel quite herself. She feels like every time she takes a deep breath she is n ot really getting enough air. Related Data Home Medications Medication Instructions Recorded Confirmed clonazepam 0.5 mg tablet 0.5 mg PO DAILY 03/08/23 03/08/23 famotidine 20 mg tablet 20 mg PO DAILY 03/08/23 03/08/23 Previous Rx's Medication Instructions Recorded ondansetron 4 mg disintegrating 4 mg PO Q6H PRN nausea and 03/08/23 tablet vomiting #10 tabs ondansetron 4 mg disintegrating 4 mg PO Q6H PRN nausea and 03/22/23 tablet vomiting #14 tabs sucralfate 100 mg/mL oral 10 ml PO QACHS #414 mL 03/22/23 suspension (Carafate) Allergies Allergy/AdvReac Type Severity Reaction Status Date / Time meperidine [MEPERIDINE] Allergy Severe SEVERE Verified 03/08/23 21:38 SICKNESS morphine [MORPHINE] Allergy Severe SEVERE Verified 03/08/23 21:38 SICKNESS hydroxyzine [From VISTARIL] Allergy Unknown HEART Verified 03/08/23 21:38 RACING haloperidol [From Haldol] Allergy Verified 03/22/23 00:22 sulfamethoxazole AdvReac Mild increased Verified 03/08/23 21:38 [From ] symptoms & nausea trimethoprim [From AUGRA] AdvReac Mild increased Verified 03/08/23 21:38 symptoms & nausea metronidazole [METRONIDAZOLE] AdvReac Unknown ANXIETY Verified 03/08/23 21:38 AND AGITATION Review of Systems Review of Systems ROS Unobtainable: All systems reviewed & are unremarkable except as noted in HPI and below Patient History Medical History (Updated 03/26/23 @ 22:16 by Sarah Aguilera DO) Anxiety Bipolar disorder Chronic pelvic pain in female Depression Surgical History History of surgery on arm (1985) Status post hernia repair Status post laparoscopy Social History Smoking Status: Former smoker alcohol intake: never substance use type: marijuana Smoking Status: Former smoker alcohol intake frequency: a few times a month Substance Use Type: marijuana Exam Initial Vital Signs Initial Vital Signs: Vital Signs Temperature 98.3 F 03/26/23 17:06 Pulse Rate 112 H 03/26/23 17:06 Respiratory Rate 28 H 03/26/23 17:06 Blood Pressure 127/90 03/26/23 17:06 Pulse Oximetry 99 03/26/23 17:06 Oxygen Delivery Method Room Air 03/26/23 17:06 GENERAL: Alert well-appearing 42-year-old female and in no acute distress. HEENT: Head atraumatic,EOMI, pupils reactive, face symmetric, moist mucous membranes CARDIOVASCULAR: Regular rate and rhythm without murmurs, rubs or gallops. RESPIRATORY: Breath sounds equal bilaterally, no wheezes rales or rhonchi. No conversational dyspnea ABDOMEN: Soft, nontender. Normoactive bowel sounds all 4 quadrants. No guarding or rebound. EXTREMITIES: Normal range of motion, no clubbing or edema. Neurovascularly intact NEUROLOGICAL: Alert and oriented x4. SKIN: Warm, dry, no laceration, no petechiae, no rashes or lesions. Course Orders Ordered: ED Orders 03/26/23 17:19 XR chest 1V Stat EKG-12 Lead Stat 03/26/23 17:30 Complete Blood Count AUTO DIFF Stat Comprehensive Metabolic Panel Stat D Dimer Stat Lactate (Lactic Acid) Stat NT-proBNP (BNP-Adult 18+) Stat Prothrombin Time INR Stat Troponin I Stat 03/26/23 17:35 Respiratory Panel (Film Array) Stat 03/26/23 20:45 BMP [Basic Metabolic Panel] Stat Discontinued Medications Sodium Chloride (Normal Saline 0.9%) 1,000 mls @ 1,000 mls/hr IV BOLUS ONE Stop: 03/26/23 18:48 Last Infusion: 03/26/23 19:58 Dose: 0 mls/hr Documented By: Admin: 03/26/23 19:10 Dose: 1,000 mls/hr Documented By: ANUPAM Ondansetron HCl (Ondansetron 4 Mg/2 Ml Inj) 4 mg IV NOW ONE Stop: 03/26/23 20:48 Last Admin: 03/26/23 20:52 Dose: 4 mg Documented By: ANUPAM Vital Signs Vital signs: Vital Signs - 8 hr 03/26/23 18:35 03/26/23 18:37 03/26/23 18:37 Pulse Rate 121 H 110 H Respiratory Rate 18 Blood Pressure 164/96 H Pulse Oximetry 100 99 Oxygen Delivery Method Room Air 03/26/23 19:00 03/26/23 19:00 03/26/23 19:30 Pulse Rate 105 H Respiratory Rate 17 Blood Pressure 128/78 126/78 Pulse Oximetry 99 Oxygen Delivery Method 03/26/23 19:30 03/26/23 20:00 03/26/23 20:00 Pulse Rate 96 H 95 H Respiratory Rate 29 H 26 H Blood Pressure 136/79 Pulse Oximetry 100 100 Oxygen Delivery Method 03/26/23 22:20 03/26/23 22:21 03/26/23 22:21 Pulse Rate 90 Respiratory Rate Blood Pressure 129/75 Pulse Oximetry 99 99 Oxygen Delivery Method MDM - SOB/Dyspnea Lab Data 03/26/23 17:30 03/26/23 20:45 Labs: Lab Results 03/26/23 03/26/23 03/26/23 Range/Units 17:30 17:30 17:30 WBC 5.9 (4.5-11.0) X10^3/uL RBC 4.59 (4.0-5.2) X10^6/uL Hgb 14.7 (12.0-16.0) g/dL Hct 42.4 (36-46) % MCV 92.5 (80-100) fL MCH 31.9 (26-34) PG MCHC 34.5 (30-36) % RDW 12.7 (11.6-14.8) % Plt Count 225 (150-400) X10^3/uL Neut % (Auto) 68.5 (50-75) % Lymph % (Auto) 22.4 L (25-40) % [place] % (Auto) 7.3 (3-14) % Eos % (Auto) 1.1 L (2-4) % Baso % (Auto) 0.7 (0-2) % Neut # (Auto) 4000 (1277-0714) /uL Lymph # (Auto) 1300 (5996-8990) /uL [place] # (Auto) 400 (0-900) /uL Eos # (Auto) 100 (0-450) /uL Baso # (Auto) 0 (0-100) /uL PT 13.5 H (10.1-12.7) SECONDS INR 1.2 (0.9-1.3) D-Dimer (<500) ng/ml Sodium 136 L (137-145) mmol/L Potassium 3.7 (3.4-5.1) mmol/L Chloride 105 (98-107) mmol/L Carbon Dioxide 15 L (22-32) mmol/L BUN 8 (7-17) mg/dL Creatinine 0.62 (0.52-1.04) mg/dL Estimated GFR > 60 (>60) mL/min BUN/Creatinine Ratio 12.9 (6-22) Glucose 93 (70-100) mg/dL Lactate (0.7-2.1) mmol/L Calcium 9.2 (8.4-10.2) mg/dL Total Bilirubin 0.7 (0.2-1.3) mg/dL AST 23 (14-36) IU/L ALT 17 (<35) IU/L Alkaline Phosphatase 75 (38-126) U/L Troponin I < 0.012 (0.01-0.034) ng/mL NT-Pro-B Natriuret Pep 14 (<125) pg/mL Total Protein 7.9 (6.3-8.2) g/dL Albumin 4.5 (3.5-5.0) g/dL Globulin 3.4 (1.7-4.1) g/dL Albumin/Globulin Ratio 1.3 (1.0-2.8) Chlamy pneumoniae PCR (Not Detect) Adenovirus (PCR) (Not Detect) B. pertussis DNA (PCR) (Not Detecte) B.parapertussis DNA PCR (Not Detecte) Coronavirus OC43 (PCR) (Not Detect) Coronavirus HKU1 (PCR) (Not Detect) Coronavirus 229E (PCR) (Not Detect) SARS-CoV-2 (PCR) (Not Detecte) Coronavirus NL63 (PCR) (Not Detect) Human Metapneumovir PCR (Not Detect) Influenza Type A (PCR) (Not Detect) Influenza Type B (PCR) (Not Detect) M. pneumoniae (PCR) (Not Detect) Parainfluenza 1 (PCR) (Not Detect) Parainfluenza 2 (PCR) (Not Detect) Parainfluenza 3 (PCR) (Not Detect) Parainfluenza 4 (PCR) (Not Detect) RSV (PCR) (Not Detect) Entero/Rhino (PCR) (Not Detect) 03/26/23 03/26/23 03/26/23 Range/Units 17:30 17:30 17:35 WBC (4.5-11.0) X10^3/uL RBC (4.0-5.2) X10^6/uL Hgb (12.0-16.0) g/dL Hct (36-46) % MCV (80-100) fL MCH (26-34) PG MCHC (30-36) % RDW (11.6-14.8) % Plt Count (150-400) X10^3/uL Neut % (Auto) (50-75) % Lymph % (Auto) (25-40) % [place] % (Auto) (3-14) % Eos % (Auto) (2-4) % Baso % (Auto) (0-2) % Neut # (Auto) (7563-8399) /uL Lymph # (Auto) (9490-4297) /uL [place] # (Auto) (0-900) /uL Eos # (Auto) (0-450) /uL Baso # (Auto) (0-100) /uL PT (10.1-12.7) SECONDS INR (0.9-1.3) D-Dimer 460 (<500) ng/ml Sodium (137-145) mmol/L Potassium (3.4-5.1) mmol/L Chloride (98-107) mmol/L Carbon Dioxide (22-32) mmol/L BUN (7-17) mg/dL Creatinine (0.52-1.04) mg/dL Estimated GFR (>60) mL/min BUN/Creatinine Ratio (6-22) Glucose (70-100) mg/dL Lactate 1.3 (0.7-2.1) mmol/L Calcium (8.4-10.2) mg/dL Total Bilirubin (0.2-1.3) mg/dL AST (14-36) IU/L ALT (<35) IU/L Alkaline Phosphatase (38-126) U/L Troponin I (0.01-0.034) ng/mL NT-Pro-B Natriuret Pep (<125) pg/mL Total Protein (6.3-8.2) g/dL Albumin (3.5-5.0) g/dL Globulin (1.7-4.1) g/dL Albumin/Globulin Ratio (1.0-2.8) Chlamy pneumoniae PCR Not detected (Not Detect) Adenovirus (PCR) Not detected (Not Detect) B. pertussis DNA (PCR) Not detected (Not Detecte) B.parapertussis DNA PCR Not detected (Not Detecte) Coronavirus OC43 (PCR) Not detected (Not Detect) Coronavirus HKU1 (PCR) Not detected (Not Detect) Coronavirus 229E (PCR) Not detected (Not Detect) SARS-CoV-2 (PCR) Not detected (Not Detecte) Coronavirus NL63 (PCR) Not detected (Not Detect) Human Metapneumovir PCR Not detected (Not Detect) Influenza Type A (PCR) Not detected (Not Detect) Influenza Type B (PCR) Not detected (Not Detect) M. pneumoniae (PCR) Not detected (Not Detect) Parainfluenza 1 (PCR) Not detected (Not Detect) Parainfluenza 2 (PCR) Not detected (Not Detect) Parainfluenza 3 (PCR) Not detected (Not Detect) Parainfluenza 4 (PCR) Not detected (Not Detect) RSV (PCR) Not detected (Not Detect) Entero/Rhino (PCR) Detected H (Not Detect) 03/26/23 Range/Units 20:45 WBC (4.5-11.0) X10^3/uL RBC (4.0-5.2) X10^6/uL Hgb (12.0-16.0) g/dL Hct (36-46) % MCV (80-100) fL MCH (26-34) PG MCHC (30-36) % RDW (11.6-14.8) % Plt Count (150-400) X10^3/uL Neut % (Auto) (50-75) % Lymph % (Auto) (25-40) % [place] % (Auto) (3-14) % Eos % (Auto) (2-4) % Baso % (Auto) (0-2) % Neut # (Auto) (4777-9916) /uL Lymph # (Auto) (3672-9466) /uL [place] # (Auto) (0-900) /uL Eos # (Auto) (0-450) /uL Baso # (Auto) (0-100) /uL PT (10.1-12.7) SECONDS INR (0.9-1.3) D-Dimer (<500) ng/ml Sodium 137 (137-145) mmol/L Potassium 3.7 (3.4-5.1) mmol/L Chloride 108 H (98-107) mmol/L Carbon Dioxide 16 L (22-32) mmol/L BUN 6 L (7-17) mg/dL Creatinine 0.62 (0.52-1.04) mg/dL Estimated GFR > 60 (>60) mL/min BUN/Creatinine Ratio 9.7 (6-22) Glucose 83 (70-100) mg/dL Lactate (0.7-2.1) mmol/L Calcium 7.9 L (8.4-10.2) mg/dL Total Bilirubin (0.2-1.3) mg/dL AST (14-36) IU/L ALT (<35) IU/L Alkaline Phosphatase (38-126) U/L Troponin I (0.01-0.034) ng/mL NT-Pro-B Natriuret Pep (<125) pg/mL Total Protein (6.3-8.2) g/dL Albumin (3.5-5.0) g/dL Globulin (1.7-4.1) g/dL Albumin/Globulin Ratio (1.0-2.8) Chlamy pneumoniae PCR (Not Detect) Adenovirus (PCR) (Not Detect) B. pertussis DNA (PCR) (Not Detecte) B.parapertussis DNA PCR (Not Detecte) Coronavirus OC43 (PCR) (Not Detect) Coronavirus HKU1 (PCR) (Not Detect) Coronavirus 229E (PCR) (Not Detect) SARS-CoV-2 (PCR) (Not Detecte) Coronavirus NL63 (PCR) (Not Detect) Human Metapneumovir PCR (Not Detect) Influenza Type A (PCR) (Not Detect) Influenza Type B (PCR) (Not Detect) M. pneumoniae (PCR) (Not Detect) Parainfluenza 1 (PCR) (Not Detect) Parainfluenza 2 (PCR) (Not Detect) Parainfluenza 3 (PCR) (Not Detect) Parainfluenza 4 (PCR) (Not Detect) RSV (PCR) (Not Detect) Entero/Rhino (PCR) (Not Detect) Imaging Data Chest x-ray: Radiologist's Impression: PROCEDURE:? XR CHEST 1V ? INDICATIONS:? Shortness of breath ? TECHNIQUE:? One view of the chest was acquired.? ? COMPARISON:? [facility], CR, XR CHEST 1V, 03/22/2023, 0:09.? [facility], CR, CHEST 2 VIEW, 11/22/2015, 22:49.? , CR, XR CHEST 2 VIEWS, 10/24/2021, 13:52. ? FINDINGS:? ? Surgical changes and devices:? None.? ? Lungs and pleura:? Lungs are clear.? No pleural effusions or pneumothorax.? ? Mediastinum:? Mediastinal contours appear normal.? Heart size is normal.? ? Bones and chest wall:? No suspicious bony lesions.? Overlying soft tissues appear unremarkable.? IMPRESSION:? Normal. ? ? Dictated by: Bao Silvestre M.D. on 03/26/2023 at 16:46 ?? ECG Data Interpretation: Normal sinus rhythm rate 109 W[place] interval 130 QRS [address] changes or T- wave inversions MDM Narrative Medical decision making narrative: Patient 42-year-old female with history of anxiety acid reflux nausea vomiting. Presenting today with increasing shortness of breath near syncopal episode. Blood work is overall reassuring however bicarb is 15 she was noted to be hype rventilating when she came in, minimal improvement after 1 L IV fluids. However no longer hyperventilating overall appears well. O2 sat is within normal limits x-ray does not show any abnormality. She is no leukocytosis. She is positive for entero/rhinovirus. She reports having an albuterol inhaler but not a spacer. No EKG changes. She is given a spacer and teaching to go with her albuterol inhaler. Discharge Plan Departure Patient Disposition: Home Clinical Impression: Acute upper respiratory infection Instructions: DI for Viral Upper Respiratory Infection -- Adult Activity Restrictions/Additional Instructions: *You have been diagnosed with upper respiratory infection *What to do: At this time you have a respiratory infection. Please use inhaler with spacer as instructed. Unfortunately no antibiotics are needed. Rest Tylenol Motrin and fluids. *Continue to take medications as directed Albuterol 1-2 puffs every 4 hours if needed for shortness of breath *Follow up with your primary care provider in 2-3 days or call [phone] *Return to ER if you should have increasing shortness of breath fever chest or any new, worsening or concerning symptoms Prescriptions: No Action clonazepam 0.5 mg tablet 0.5 mg PO DAILY famotidine 20 mg Tablet 20 mg PO DAILY ondansetron 4 mg tablet,disintegrating 4 mg PO Q6H PRN (Reason: nausea and vomiting) Qty: 10 0RF ondansetron 4 mg tablet,disintegrating 4 mg PO Q6H PRN (Reason: nausea and vomiting) Qty: 14 0RF sucralfate [Carafate] 100 mg/mL suspension 10 ml PO QACHS Qty: 414 2RF Referrals: Jessica Galvan MD [Primary Care Provider] - Stand Alone Forms: Patient Portal/API
[2023-03-26] MEDS: ONDANSETRON 4 MG/2 ML INJ IV (20:52)
[2023-03-26 21:10] LABS: BUN Creatinine Ratio 9.7 (6-22); Blood Urea Nitrogen 6 mg/dL (7-17); Calcium 7.9 mg/dL (8.4-10.2); Carbon Dioxide 16 mmol/L (22-32); Chloride 108 mmol/L (98-107); Estimated Glomerular Filt Rate > 60 mL/min (>60); Glucose 83 mg/dL (70-100); HEMOLYSIS < 15 (0-50); Potassium 3.7 mmol/L (3.4-5.1); Sodium 137 mmol/L (137-145)
== END 2023-03-26 22:26 | disposition home or self-care (01) ==
PROVIDERS: Emergency Medicine; Emergency Provider Emergency Medicine; PCP Family Medicine
DX: J06.9 Acute upper respiratory infection, unspecified (principal); R11.2 Nausea with vomiting, unspecified; R19.7 Diarrhea, unspecified; Z20.822 Contact with and (suspected) exposure to COVID-19
CPT/HCPCS: 36415; 71045; 80048; 80053; 83605; 83880; 84484; 85025; 85379; 85610; 87633; 93005; 93010; 96361; 96374; 99284; J2405

== ENCOUNTER 2023-04-02 00:34 | Emergency (ER) | payer OTHER, MEDICAID, SELFPAY ==
[2023-04-02 01:03] VITALS: BP 114/83; PULSE 98; RESP 18; TEMP 36.6; O2SAT 97; BMI 24.7
--- NOTE | 2023-04-02 02:30 | ED_ITS ---
HPI - Anxiety General Chief Complaint: Anxiety Stated Complaint: SOB Time Seen by Provider: 04/02/23 00:46 Source: patient Mode of arrival: Wheelchair History of Present Illness HPI narrative: 42-year-old female with history of GERD, anxiety presents by EMS for evaluation of an episode of shortness of breath and chest tightness that started earlier today. She is been here multiple times in the past few weeks for episodes of abdominal pain, shortness of breath and cough. Most recently she was seen a few days ago and diagnosed with rhino virus. Labs were otherwise reassuring including a D-dimer below 500. She states that she was recently encouraged to go back on Protonix twice daily and tonight was the 1st attempt at doing so. She states that she was out with her sister shopping and started feeling chest tightness, she took a few puffs on her inhaler which provided minimal to no relief Related Data Home Medications Medication Instructions Recorded Confirmed clonazepam 0.5 mg tablet 0.5 mg PO DAILY 03/08/23 03/08/23 famotidine 20 mg tablet 20 mg PO DAILY 03/08/23 03/08/23 Previous Rx's Medication Instructions Recorded ondansetron 4 mg disintegrating 4 mg PO Q6H PRN nausea and 03/08/23 tablet vomiting #10 tabs ondansetron 4 mg disintegrating 4 mg PO Q6H PRN nausea and 03/22/23 tablet vomiting #14 tabs sucralfate 100 mg/mL oral 10 ml PO QACHS #414 mL 03/22/23 suspension (Carafate) Allergies Allergy/AdvReac Type Severity Reaction Status Date / Time meperidine [MEPERIDINE] Allergy Severe SEVERE Verified 03/08/23 21:38 SICKNESS morphine [MORPHINE] Allergy Severe SEVERE Verified 03/08/23 21:38 SICKNESS hydroxyzine [From VISTARIL] Allergy Unknown HEART Verified 03/08/23 21:38 RACING haloperidol [From Haldol] Allergy Verified 03/22/23 00:22 sulfamethoxazole AdvReac Mild increased Verified 03/08/23 21:38 [From ] symptoms & nausea trimethoprim [From AUGRA] AdvReac Mild increased Verified 03/08/23 21:38 symptoms & nausea metronidazole [METRONIDAZOLE] AdvReac Unknown ANXIETY Verified 03/08/23 21:38 AND AGITATION Review of Systems Review of Systems Narrative: GENERAL: Denies chills, fatigue, malaise, fever, sweats. HEENT: Denies sinus pain, ear pain, sore throat, difficulty swallowing, dizziness. RESPIRATORY: See HPI CARDIOVASCULAR: See HPI GASTROINTESTINAL: See HP : Denies dysuria, frequency, incontinence, hematuria, urinary retention. MUSCULOSKELETAL: denies weakness, joint pain, or bony pain SKIN: Denies rash, skin lesions, or other NEUROLOGIC: Denies weakness, headache, numbness, change in speech, confusion, seizures, incoordination. PSYCHIATRIC: No concerning psychosocial issues. 12 point review of systems is negative except for those stated above Patient History Medical History (Updated 04/02/23 @ 05:35 by Sebastien Agosto DO) Anxiety Bipolar disorder Chronic pelvic pain in female Depression Surgical History History of surgery on arm (1985) Status post hernia repair Status post laparoscopy Social History Smoking Status: Former smoker alcohol intake: never substance use type: marijuana Smoking Status: Former smoker alcohol intake frequency: a few times a month Substance Use Type: marijuana Exam Narrative Exam Narrative: GENERAL: [42] year old patient appears stated age. Well-developed patient, in mild distress. Anxious HEAD: Atraumatic. Normocephalic. EYES: Pupils equal round and reactive. Extraocular motions intact. No scleral i cterus. No injection or drainage. ENT: Nose without bleeding, purulent drainage. Throat without erythema, tonsillar hypertrophy or exudate. Airway patent. NECK: Trachea midline. Non tender CARDIOVASCULAR: Regular rate and rhythm without murmurs, gallops, or rubs. RESPIRATORY: Clear to auscultation. Breath sounds equal bilaterally. No wheezes, rales, or rhonchi. GASTROINTESTINAL: Abdomen soft, non-tender, nondistended. EXTREMITIES: No edema or joint tenderness. BACK: Nontender without deformity or crepitance. No flank tenderness. NEURO: AOx3. SKIN: No rash or erythema of visible areas Initial Vital Signs Initial Vital Signs: Vital Signs Temperature 97.9 F 04/02/23 01:03 Pulse Rate 98 H 04/02/23 01:03 Respiratory Rate 18 04/02/23 01:03 Blood Pressure 114/83 05/03/23 01:03 Pulse Oximetry 97 04/02/23 01:03 Oxygen Delivery Method Room Air 04/02/23 01:03 Course Orders Ordered: Discontinued Medications Al Hydrox/Mg Hydrox/Simethicone 20 ml/ Lidocaine HCl 15 ml 0 ml PO NOW ONE Stop: 04/02/23 02:47 Last Admin: 04/02/23 03:16 Dose: 20 ml Documented By: JULIO Reevaluation(s) Reevaluation #1: Patient feels significant improvement after above-stated therapies Vital Signs Vital signs: Vital Signs - 8 hr 04/02/23 01:03 Temperature 97.9 F Pulse Rate 98 H Respiratory Rate 18 Blood Pressure 114/83 Pulse Oximetry 97 Oxygen Delivery Method Room Air MDM - Anxiety MDM Narrative Medical decision making narrative: 42[] year old patient presents with chest tightness and epigastric pain Multiple etiologies for patient's symptoms considered including, but not limited to: [GERD, anxiety, vs. costrocondritis vs. other] Prior Charts reviewed in our EMR Primary Historian: patient Imaging reviewed: No acute process atient's symptoms improved over duration of stay with above-stated therapies. Findings and discharge diagnosis discussed with patient/family followed by verbalization of understanding Return precautions discussed with patient/family whom verbalize understanding of diagnosis and plan Discharge Plan Departure Patient Disposition: Home Clinical Impression: GERD (gastroesophageal reflux disease) Instructions: DI for Gastroesophageal Reflux Disease (GERD) Activity Restrictions/Additional Instructions: *You have been diagnosed with [GERD. As we discussed your history and physical exam are reassuring, EKG and chest x-ray have no significant abnormal findings requiring a specific intervention] *What to do: *Please continue to take your regular medications as directed. [ ] New medication prescriptions sent to your pharmacy: [ ] [ ] New medication written as a paper prescription [ ] No new medications given *Please follow up with your primary care provider in 2-3 days, call for an appointment. Let them know you were seen in the Emergency Department and that we ask that you be seen in follow up. We will electronically transmit a record of today's note if your PCP is in our system *If you do not have a primary care provider please contact the [facility] Resource line at [phone]. They will ask some questions about your medical history and help get you set up with a doctor in the community. *Return to Emergency Department if you should have any new, worsening or concerning symptoms, such as [fever greater than 101 F, shaking chills, worsening pain, persistent vomiting or other bothersome symptoms] Prescriptions: No Action clonazepam 0.5 mg tablet 0.5 mg PO DAILY famotidine 20 mg Tablet 20 mg PO DAILY ondansetron 4 mg tablet,disintegrating 4 mg PO Q6H PRN (Reason: nausea and vomiting) Qty: 10 0RF ondansetron 4 mg tablet,disintegrating 4 mg PO Q6H PRN (Reason: nausea and vomiting) Qty: 14 0RF sucralfate [Carafate] 100 mg/mL suspension 10 ml PO QACHS Qty: 414 2RF Referrals: Jessica Galvan MD [Primary Care Provider] - Stand Alone Forms: Patient Portal/API
--- NOTE | 2023-04-02 02:46 | DI.RAD.S_ITS ---
PROCEDURE: XR CHEST 2V INDICATIONS: SOB TECHNIQUE: 2 views of the chest were acquired. COMPARISON: [facility], CR, XR CHEST 1V, 03/26/2023, 17:18. [facility], CR, XR CHEST 1V, 03/22/2023, 0:09. FINDINGS: Surgical changes and devices: None. Lungs and pleura: Lungs are clear. No pleural effusions or pneumothorax. Nodularity anterior to the cardiac silhouette. Mediastinum: Mediastinal contours are normal. Heart size is normal. Bones and chest wall: No suspicious bony abnormalities. Soft tissues appear unremarkable. IMPRESSION: Nodularity anterior to the cardiac silhouette on lateral view only. Recommend outpatient chest CT without contrast for confirmation. Dictated by: Zain Parrish M.D. on 04/02/2023 at 8:04 Approved by: Zain Parrish M.D. on 04/02/2023 at 8:06
[2023-04-02] MEDS: MAG HYDROX/ALUMINUM/SIMETH SUS 20 ML, LIDOCAINE VISCOUS 2% 15 ML PO (03:16)
[2023-04-02 05:58] VITALS: BP 115/74; PULSE 66; RESP 16; O2SAT 99
== END 2023-04-02 06:00 | disposition home or self-care (01) ==
PROVIDERS: Emergency Provider Emergency Medicine; PCP Family Medicine
DX: K21.9 Gastro-esophageal reflux disease without esophagitis (principal); R06.02 Shortness of breath; R07.9 Chest pain, unspecified
CPT/HCPCS: 71046; 93005; 99283; 99284

== ENCOUNTER 2023-06-07 23:03 | Emergency (ER) | payer OTHER, MEDICAID, SELFPAY ==
[2023-06-07 23:11] VITALS: BP 116/74; PULSE 81; RESP 16; TEMP 36.4; O2SAT 100; BMI 23.0
--- NOTE | 2023-06-07 23:20 | PC.NURSE ---
pt c/o n/v today not being able to tolerate any food, a few loose stools but states she took some miralax yesterday
[2023-06-07 23:23] VITALS: PULSE 76; O2SAT 99
[2023-06-07] MEDS: ONDANSETRON 4 MG ODT SL (23:26)
[2023-06-07 23:30] VITALS: BP 119/77; PULSE 85; O2SAT 99
--- NOTE | 2023-06-07 23:35 | ED.NAVMDI ---
HPI - Nausea/Vomiting/Diarrhea General Chief complaint: Nausea/Vomiting/Diarrhea Stated complaint: ABD pain Time Seen by Provider: 06/07/23 23:22 Source: patient Mode of arrival: Ambulatory History of Present Illness HPI Narrative: 42-year-old female who is here because she states that she drank too much last evening and since that time has had some epigastric pain and also nausea and vomiting. She does have a history of epigastric discomfort. She is been seen here in the emergency department for it in the past. She does not have any nausea medication at home. Related Data Home Medications Medication Instructions Recorded Confirmed clonazepam 0.5 mg tablet 0.5 mg PO DAILY 03/08/23 03/08/23 famotidine 20 mg tablet 20 mg PO DAILY 03/08/23 03/08/23 Previous Rx's Medication Instructions Recorded ondansetron 4 mg disintegrating 4 mg PO Q6H PRN nausea and 03/08/23 tablet vomiting #10 tabs ondansetron 4 mg disintegrating 4 mg PO Q6H PRN nausea and 03/22/23 tablet vomiting #14 tabs sucralfate 100 mg/mL oral 10 ml PO QACHS #414 mL 03/22/23 suspension (Carafate) ondansetron 4 mg disintegrating 4 mg PO Q6H PRN nausea and 06/08/23 tablet vomiting #20 tabs Allergies Allergy/AdvReac Type Severity Reaction Status Date / Time meperidine [MEPERIDINE] Allergy Severe SEVERE Verified 03/08/23 21:38 SICKNESS morphine [MORPHINE] Allergy Severe SEVERE Verified 03/08/23 21:38 SICKNESS hydroxyzine [From VISTARIL] Allergy Unknown HEART Verified 03/08/23 21:38 RACING haloperidol [From Haldol] Allergy Verified 03/22/23 00:22 sulfamethoxazole AdvReac Mild increased Verified 03/08/23 21:38 [From SEPTRA] symptoms & nausea trimethoprim [From SEPTRA] AdvReac Mild increased Verified 03/08/23 21:38 symptoms & nausea metronidazole [METRONIDAZOLE] AdvReac Unknown ANXIETY Verified 03/08/23 21:38 AND AGITATION Review of Systems Constitutional Constitutional: Reports system reviewed and no additional complaints, except as documented Respiratory Respiratory: Reports system reviewed and no additional complaints, except as documented Gastrointestinal Gastrointestinal: Reports system reviewed and no additional complaints, except as documented Genitourinary Genitourinary: Reports system reviewed and no additional complaints, except as documented Integumentary/Breasts Skin/Breast: Reports system reviewed and no additional complaints, except as documented Neurologic Neurologic: Reports system reviewed and no additional complaints, except as documented Patient History Medical History Anxiety Bipolar disorder Chronic pelvic pain in female Depression Surgical History History of surgery on arm (1985) Status post hernia repair Status post laparoscopy Social History Smoking Status: Former smoker alcohol intake: never substance use type: marijuana Smoking Status: Former smoker alcohol intake frequency: a few times a month Substance Use Type: marijuana Exam Initial Vital Signs Initial Vital Signs: Vital Signs Temperature 97.6 F 06/07/23 23:11 Pulse Rate 81 06/07/23 23:11 Respiratory Rate 16 06/07/23 23:11 Blood Pressure 116/74 06/07/23 23:11 Pulse Oximetry 100 06/07/23 23:11 Oxygen Delivery Method Room Air 06/07/23 23:11 Const General: cooperative and healthy appearing Resp Effort & Inspection: normal respiratory effort Cardio Rate: regular rate GI Inspection: normal to inspection and non-distended Neuro General: patient alert, patient awake and moves all extremities Extrem General: normal to inspection Course Orders Ordered: Discontinued Medications Al Hydrox/Mg Hydrox/Simethicone (Mag Hydrox/Alum/Simeth 30 Ml Udc) 30 ml PO NOW ONE Stop: 06/07/23 23:45 Last Admin: 06/07/23 23:50 Dose: 30 ml Documented By: JULIO Lorazepam (Lorazepam 0.5 Mg Tablet) 1 mg PO NOW ONE Stop: 06/08/23 00:20 Last Admin: 06/08/23 00:32 Dose: Not Given Documented By: JULIO Metoclopramide HCl (Metoclopramide Hcl 5 Mg Tablet) 10 mg PO NOW ONE Stop: 06/08/23 00:32 Last Admin: 06/08/23 00:51 Dose: 10 mg Documented By: JULIO Ondansetron HCl (Ondansetron 4 Mg Odt) 4 mg SL NOW ONE Stop: 06/07/23 23:23 Last Admin: 06/07/23 23:26 Dose: 4 mg Documented By: JULIO Ondansetron HCl (Ondansetron 4 Mg Odt Prepack) 1 bottle MISC SEEINSTR ONE Stop: 06/08/23 02:15 Last Admin: 06/08/23 02:22 Dose: 1 bottle Documented By: JULIO Vital Signs Vital signs: Vital Signs - 8 hr 06/07/23 23:11 06/07/23 23:23 06/07/23 23:30 Temperature 97.6 F Pulse Rate 81 76 Respiratory Rate 16 Blood Pressure 116/74 119/77 Pulse Oximetry 100 99 Oxygen Delivery Method Room Air 06/07/23 23:30 06/08/23 00:00 06/08/23 00:00 Temperature Pulse Rate 85 72 Respiratory Rate Blood Pressure 109/71 Pulse Oximetry 99 98 Oxygen Delivery Method 06/08/23 00:30 06/08/23 00:30 Temperature Pulse Rate 85 Respiratory Rate Blood Pressure 104/71 Pulse Oximetry 98 Oxygen Delivery Method MDM - Nausea/Vomiting/Diarrhea Medical Records Attestation: I reviewed the patient's medical records. MDM Narrative Medical decision making narrative: Patient has a benign exam. Afebrile. After nausea medication she was able to tolerate oral intake although it was a small amount. No fevers. I suspect that this is related to her drinking. Will send home with a prescription for nausea medicine and return precautions. She states that she was having some anxiety but refused Ativan here in the ER. She was given return precautions. Discharge Plan Departure Patient Disposition: Home Clinical Impression: Nausea & vomiting, Epigastric abdominal pain Instructions: Nausea and Vomiting-Adult Activity Restrictions/Additional Instructions: I recommend that you continue to take all of your medications as directed. Use the nausea medication has needed. I recommend that you increase your fluid intake by drinking small amounts more frequently. Return to the emergency department for new symptoms. Prescriptions: New ondansetron 4 mg tablet,disintegrating 4 mg PO Q6H PRN (Reason: nausea and vomiting) Qty: 20 0RF No Action clonazepam 0.5 mg tablet 0.5 mg PO DAILY famotidine 20 mg Tablet 20 mg PO DAILY ondansetron 4 mg tablet,disintegrating 4 mg PO Q6H PRN (Reason: nausea and vomiting) Qty: 10 0RF ondansetron 4 mg tablet,disintegrating 4 mg PO Q6H PRN (Reason: nausea and vomiting) Qty: 14 0RF sucralfate [Carafate] 100 mg/mL suspension 10 ml PO QACHS Qty: 414 2RF Referrals: Jessica Galvan MD [Primary Care Provider] - Stand Alone Forms: Patient Portal/API
[2023-06-07] MEDS: MAG HYDROX/ALUM/SIMETH 30 ML UDC PO (23:50)
[2023-06-08] VITALS: BP 109/71; PULSE 72; O2SAT 98
[2023-06-08 00:30] VITALS: BP 104/71; PULSE 85; O2SAT 98
[2023-06-08] MEDS: METOCLOPRAMIDE HCL 5 MG TABLET 10 MG PO (00:51)
[2023-06-08] MEDS: ONDANSETRON 4 MG ODT PREPACK 1 BOTTLE MISC (02:22)
== END 2023-06-08 02:23 | disposition home or self-care (01) ==
PROVIDERS: Emergency Provider Emergency Medicine; PCP Family Medicine
DX: R10.13 Epigastric pain (principal); R11.2 Nausea with vomiting, unspecified
CPT/HCPCS: 99283

== ENCOUNTER 2023-08-14 14:49 | Emergency (ER) | payer OTHER, MEDICAID, SELFPAY ==
[2023-08-14 14:56] VITALS: BP 109/74; PULSE 90; RESP 22; TEMP 37.1; O2SAT 99; BMI 24.4
--- NOTE | 2023-08-14 16:01 | ED.HA ---
HPI - Headache General Chief Complaint: Headache Stated Complaint: Fibromyalgia, Head/back pain Time Seen by Provider: 08/14/23 15:50 Source: patient Mode of arrival: Ambulatory Limitations: no limitations History of Present Illness HPI Narrative: Patient is a 42-year-old female. Recent diagnosis of fibromyalgia and also scoliosis. These diagnoses were suspected by primary providers but she just recently saw a fire protection fabricator. She is not on any specific pain medication. She states that for the past couple days she is had back pain and headache and abdominal pain and leg pain that she states is consistent with her prior issues that have now been diagnosed with fibromyalgia. Related Data Home Medications Medication Instructions Recorded Confirmed clonazepam 0.5 mg tablet 0.5 mg PO DAILY 03/08/23 08/14/23 hyoscyamine sulfate 0.125 mg tablet 0.125 mg PO 4XD 08/14/23 08/14/23 pantoprazole 40 mg tablet,delayed 40 mg PO BID 08/14/23 08/14/23 release Previous Rx's Medication Instructions Recorded ondansetron 4 mg disintegrating 4 mg PO Q6H PRN nausea and 03/08/23 tablet vomiting #10 tabs ondansetron 4 mg disintegrating 4 mg PO Q6H PRN nausea and 03/22/23 tablet vomiting #14 tabs sucralfate 100 mg/mL oral 10 ml PO QACHS #414 mL 03/22/23 suspension (Carafate) ondansetron 4 mg disintegrating 4 mg PO Q6H PRN nausea and 06/08/23 tablet vomiting #20 tabs Allergies Allergy/AdvReac Type Severity Reaction Status Date / Time meperidine [MEPERIDINE] Allergy Severe SEVERE Verified 08/14/23 14:18 SICKNESS morphine [MORPHINE] Allergy Severe SEVERE Verified 08/14/23 14:18 SICKNESS hydroxyzine [From VISTARIL] Allergy Unknown HEART Verified 08/14/23 14:18 RACING haloperidol [From Haldol] Allergy Verified 08/14/23 14:18 sulfamethoxazole AdvReac Mild increased Verified 08/14/23 14:18 [From AUGRA] symptoms & nausea trimethoprim [From AUGRA] AdvReac Mild increased Verified 08/14/23 14:18 symptoms & nausea metronidazole [METRONIDAZOLE] AdvReac Unknown ANXIETY Verified 08/14/23 14:18 AND AGITATION Review of Systems Constitutional Constitutional: Reports system reviewed and no additional complaints, except as documented Respiratory Respiratory: Reports system reviewed and no additional complaints, except as documented Gastrointestinal Gastrointestinal: Reports system reviewed and no additional complaints, except as documented Musculoskeletal Musculoskeletal: Reports system reviewed and no additional complaints, except as documented Integumentary/Breasts Skin/Breast: Reports system reviewed and no additional complaints, except as documented Neurologic Neurologic: Reports system reviewed and no additional complaints, except as documented Hematologic/Lymphatic On Anticoagulants: No Patient History Medical History (Updated 08/14/23 @ 18:50 by Russ Salomon DO) Anxiety Bipolar disorder Chronic pelvic pain in female Depression Surgical History History of surgery on arm (1985) Status post hernia repair Status post laparoscopy Social History Smoking Status: Current every day smoker alcohol intake: never substance use type: marijuana Smoking Status: Current every day smoker tobacco type: vaping alcohol intake frequency: a few times a month Substance Use Type: marijuana Exam Initial Vital Signs Initial Vital Signs: Vital Signs Temperature 98.8 F 08/14/23 14:56 Pulse Rate 90 08/14/23 14:56 Respiratory Rate 22 08/14/23 14:56 Blood Pressure 109/74 08/14/23 14:56 Pulse Oximetry 99 08/14/23 14:56 Oxygen Delivery Method Room Air 08/14/23 14:56 HENOR Head: normal to inspection and normocephalic Resp Effort & Inspection: normal respiratory effort Auscultation: clear to auscultation bilaterally Cardio Rate: regular rate Rhythm: regular rhythm Skin General: no rashes or lesions noted Neuro General: patient alert, patient awake, patient oriented x3 and moves all extremities Extrem General: normal to inspection and capillary refill normal Course Orders Ordered: Discontinued Medications Acetaminophen (Acetaminophen 325 Mg Tablet) 650 mg PO NOW ONE Stop: 08/14/23 17:58 Last Admin: 08/14/23 18:25 Dose: Not Given Documented By: MEREDITH Hydromorphone HCl (Hydromorphone 1 Mg Inj) 1 mg IM NOW ONE Stop: 08/14/23 16:02 Last Admin: 08/14/23 16:11 Dose: 1 mg Documented By: MEREDITH Sodium Chloride (Normal Saline 0.9%) 1,000 mls @ 1,000 mls/hr IV BOLUS ONE Stop: 08/14/23 17:33 Last Infusion: 08/14/23 17:50 Dose: 0 mls/hr Documented By: Admin: 08/14/23 16:36 Dose: 1,000 mls/hr Documented By: MEREDITH Vital Signs Vital signs: Vital Signs - 8 hr 08/14/23 14:56 08/14/23 18:26 Temperature 98.8 F Pulse Rate 90 90 Respiratory Rate 22 18 Blood Pressure 109/74 122/75 Pulse Oximetry 99 97 Oxygen Delivery Method Room Air Room Air MDM - Headache MDM Narrative Medical decision making narrative: Patient does have a benign exam with multiple vague complaints that his most likely related to her fibromyalgia. Her labs are unremarkable. Had a long discussion with her regarding her symptoms. Advised that she try to avoid opioid pain medication as much as possible. Advised that she contact her primary doctor and also her fire protection fabricator for a good pain management regimen. She was given return precautions. Discharge Plan Departure Patient Disposition: Home Clinical Impression: Body aches, Headache Instructions: Fibromyalgia Activity Restrictions/Additional Instructions: Recommend that you continue to take all of your medications as directed. It is important that you talk with your primary doctor and also your fire protection fabricator to come up with a good pain management regimen. Turned to the emergency department for new symptoms. Prescriptions: No Action pantoprazole 40 mg tablet,delayed release (DR/EC) 40 mg PO BID hyoscyamine sulfate 0.125 mg tablet 0.125 mg PO 4XD clonazepam 0.5 mg tablet 0.5 mg PO DAILY ondansetron 4 mg tablet,disintegrating 4 mg PO Q6H PRN (Reason: nausea and vomiting) Qty: 10 0RF ondansetron 4 mg tablet,disintegrating 4 mg PO Q6H PRN (Reason: nausea and vomiting) Qty: 20 0RF ondansetron 4 mg tablet,disintegrating 4 mg PO Q6H PRN (Reason: nausea and vomiting) Qty: 14 0RF sucralfate [Carafate] 100 mg/mL suspension 10 ml PO QACHS Qty: 414 2RF Referrals: Jessica Galvan MD [Primary Care Provider] - Stand Alone Forms: Patient Portal/API
[2023-08-14] MEDS: HYDROMORPHONE 1 MG INJ IM (16:11)
[2023-08-14] MEDS: SODIUM CHLORIDE 0.9% 1,000 ML 1000 ML IV (16:36)
[2023-08-14 18:26] VITALS: BP 122/75; PULSE 90; RESP 18; O2SAT 97
--- NOTE | 2023-08-14 18:27 | PC.NURSE ---
po fluids to patient.
== END 2023-08-14 19:06 | disposition home or self-care (01) ==
PROVIDERS: Emergency Provider Emergency Medicine; PCP Family Medicine
DX: M79.7 Fibromyalgia (principal); R51.9 Headache, unspecified
CPT/HCPCS: 36415; 96360; 96372; 99284; J1170

== ENCOUNTER 2023-08-15 19:43 | Emergency (ER) | payer OTHER, MEDICAID, SELFPAY ==
[2023-08-15 19:52] VITALS: BP 115/73; PULSE 83; RESP 18; TEMP 37.1; O2SAT 94; BMI 24.4
--- NOTE | 2023-08-15 20:02 | ED_ITS ---
HPI - General Adult General Chief complaint: Upper Respiratory Symptoms Stated complaint: Covid + Time Seen by Provider: 08/15/23 19:46 Source: patient Mode of arrival: Ambulatory History of Present Illness HPI narrative: 42-year-old female with a history of GERD and anxiety presents with a chief complaint of recent diagnosis of COVID and ongoing dry cough without respiratory distress, generalized headache and body aches. She states that she received Dilaudid yesterday and is hoping to receive something similar because Tylenol and Motrin are not helping. She denies any neck pain, blurred vision seizures. She has no chest pain. She is nauseated and has occasional vomiting. She has no abdominal pain. She does admit to sore throat Related Data Home Medications Medication Instructions Recorded Confirmed clonazepam 0.5 mg tablet 0.5 mg PO DAILY 03/08/23 08/14/23 hyoscyamine sulfate 0.125 mg tablet 0.125 mg PO 4XD 08/14/23 08/14/23 pantoprazole 40 mg tablet,delayed 40 mg PO BID 08/14/23 08/14/23 release Previous Rx's Medication Instructions Recorded ondansetron 4 mg disintegrating 4 mg PO Q6H PRN nausea and 03/08/23 tablet vomiting #10 tabs ondansetron 4 mg disintegrating 4 mg PO Q6H PRN nausea and 03/22/23 tablet vomiting #14 tabs sucralfate 100 mg/mL oral 10 ml PO QACHS #414 mL 03/22/23 suspension (Carafate) ondansetron 4 mg disintegrating 4 mg PO Q6H PRN nausea and 06/08/23 tablet vomiting #20 tabs Allergies Allergy/AdvReac Type Severity Reaction Status Date / Time meperidine [MEPERIDINE] Allergy Severe SEVERE Verified 08/14/23 14:18 SICKNESS morphine [MORPHINE] Allergy Severe SEVERE Verified 08/14/23 14:18 SICKNESS hydroxyzine [From VISTARIL] Allergy Unknown HEART Verified 08/14/23 14:18 RACING haloperidol [From Haldol] Allergy Verified 08/14/23 14:18 sulfamethoxazole AdvReac Mild increased Verified 08/14/23 14:18 [From AUGRA] symptoms & nausea trimethoprim [From SEPTRA] AdvReac Mild increased Verified 08/14/23 14:18 symptoms & nausea metronidazole [METRONIDAZOLE] AdvReac Unknown ANXIETY Verified 08/14/23 14:18 AND AGITATION Review of Systems Review of Systems Narrative: GENERAL: See HPI HEENT: See HPI RESPIRATORY: See HPI. CARDIOVASCULAR: Denies chest pain, palpitations, orthopnea, edema, GASTROINTESTINAL: See HPI : Denies dysuria, frequency, incontinence, hematuria, urinary retention. MUSCULOSKELETAL: denies weakness, joint pain, or bony pain SKIN: Denies rash, skin lesions, or other NEUROLOGIC: See HPI PSYCHIATRIC: No concerning psychosocial issues. 12 point review of systems is negative except for those stated above Patient History Medical History Anxiety Bipolar disorder Chronic pelvic pain in female Depression Surgical History History of surgery on arm (1985) Status post hernia repair Status post laparoscopy Social History Smoking Status: Former smoker alcohol intake: never substance use type: marijuana Smoking Status: Former smoker tobacco type: vaping alcohol intake frequency: a few times a month Substance Use Type: marijuana Exam Narrative Exam Narrative: GENERAL: [42] year old patient appears stated age. Well-developed patient, in mild distress. Tearful and anxious HEAD: Atraumatic. Normocephalic. EYES: Pupils equal round and reactive. Extraocular motions intact. No scleral icterus. No injection or drainage. ENT: Nose without bleeding, purulent drainage. Throat without erythema, tonsillar hypertrophy or exudate. Airway patent. NECK: Trachea midline. Non tender, no meningeal signs CARDIOVASCULAR: Regular rate and rhythm without murmurs, gallops, or rubs. RESPIRATORY: Clear to auscultation. Breath sounds equal bilaterally. No wheezes, rales, or rhonchi. GASTROINTESTINAL: Abdomen soft, non-tender, nondistended. EXTREMITIES: No edema or joint tenderness. BACK: Nontender without deformity or crepitance. No flank tenderness. NEURO: AOx3. SKIN: No rash or erythema of visible areas Initial Vital Signs Initial Vital Signs: Vital Signs Temperature 98.7 F 08/15/23 19:52 Pulse Rate 83 08/15/23 19:52 Respiratory Rate 18 08/15/23 19:52 Blood Pressure 115/73 08/15/23 19:52 Pulse Oximetry 94 08/15/23 19:52 Oxygen Delivery Method Room Air 08/15/23 19:52 Course Orders Ordered: Discontinued Medications Sodium Chloride (Normal Saline 0.9%) 1,000 mls @ 1,000 mls/hr IV BOLUS ONE Stop: 08/15/23 20:53 Last Admin: 08/15/23 20:15 Dose: 1,000 mls/hr Documented By: JULIO Acetaminophen (Ofirmev) 1,000 mg in 100 mls @ 400 mls/hr IV NOW ONE Stop: 08/15/23 20:10 Last Infusion: 08/15/23 20:56 Dose: 0 mls/hr Documented By: Admin: 08/15/23 20:15 Dose: 400 mls/hr Documented By: JULIO Metoclopramide HCl (Metoclopramide 10 Mg/2 Ml Inj) 10 mg IV NOW ONE Stop: 08/15/23 19:55 Last Admin: 08/15/23 20:16 Dose: 10 mg Documented By: JULIO Vital Signs Vital signs: Vital Signs - 8 hr 08/15/23 22:06 Temperature 98.5 F Medical Decision Making [facility] Narrative Medical decision making narrative: [42] year old patient presents with various symptoms consistent with COVID including headache, sore throat, body aches Multiple etiologies for patient's symptoms considered including, but not limited to: [COVID versus other] Prior Charts reviewed in our EMR Primary Historian: patient Labs reviewed and interpreted by myself: Patient's symptoms improved over duration of stay with above-stated therapies. Headache improved, tolerating orals, appropriate for discharge Findings and discharge diagnosis discussed with patient/family followed by verbalization of understanding Return precautions discussed with patient/family whom verbalize understanding of diagnosis and plan Discharge Plan Departure Patient Disposition: Home Clinical Impression: COVID-19 Instructions: COVID-19 Activity Restrictions/Additional Instructions: *You have been diagnosed with [ COVID-19] *What to do: ?* per recommendations from the CDC and the [facility] Department of Health ?* stay home except to get medical care. ?Restrict activities outside your home, except for getting medical care. ?Do not go to work, school, or public areas. ?Avoid using public transportation, ride sharing, or taxis. ?* separate yourself from other people in your home. ?* call ahead before visiting your doctor ?* Wear a facemask ?* Cover your coughs and sneezes ?* Clean your hands often ?* Avoid sharing household items ?* Clean all high-touch services every day ?* Monitor your symptoms and seek prompt medical attention if your illness is worsening, particularly with difficulty in breathing. You may discontinue your isolation when: ?1. You have been fever-free for at least 24 hours without the use of fever reducing medication, AND ?2. Your symptoms are getting better, AND ?3. At least 5 days have passed since symptoms first appeared ?4. If you have fever, continue to stay home until fever resolves Individuals with laboratory confirmed COVID-19 who have not had any symptoms may discontinue home isolation when at least 5 days have passed since the date of their first COVID-19 diagnostic test and have had no subsequent illness You should notifiy any friends and family that have been in close contact *If up to date on COVID Vaccines, then they do not need to quarantine unless symptoms develop. Get tested on day 5 (or sooner if symptoms develop). Take precautions and watch for symptoms until day 10 *If NOT up to date on COVID Vaccines, then CDC recommends quarantine for at least 5 full days. Wear a well fitted mask at home if you must be around others. If they ?develop symptoms they should get tested. If they remain asymptomatic they should get tested on day 5. They should take precautions and monitor for symptoms until day 10. Prescriptions: No Action pantoprazole 40 mg tablet,delayed release (DR/EC) 40 mg PO BID hyoscyamine sulfate 0.125 mg tablet 0.125 mg PO 4XD clonazepam 0.5 mg tablet 0.5 mg PO DAILY ondansetron 4 mg tablet,disintegrating 4 mg PO Q6H PRN (Reason: nausea and vomiting) Qty: 10 0RF ondansetron 4 mg tablet,disintegrating 4 mg PO Q6H PRN (Reason: nausea and vomiting) Qty: 20 0RF ondansetron 4 mg tablet,disintegrating 4 mg PO Q6H PRN (Reason: nausea and vomiting) Qty: 14 0RF sucralfate [Carafate] 100 mg/mL suspension 10 ml PO QACHS Qty: 414 2RF Referrals: Jessica Galavn MD [Primary Care Provider] - Stand Alone Forms: Patient Portal/API
[2023-08-15] MEDS: ACETAMINOPHEN IV 1,000 MG/100 ML VIAL 400 MG IV (20:15)
[2023-08-15] MEDS: SODIUM CHLORIDE 0.9% 1,000 ML 1000 ML IV (20:15)
--- NOTE | 2023-08-15 20:15 | PC.NURSE ---
pt was seen here yesterday for the same symptoms, states she went to her pcp today and was given toradol and told to come here if her h/a continued, pt c/o h/a, back pain and n/v. discussed with pt how long a virus takes to run it's course, the importance of keeping hydrated, that this is like the flu and it has to run its course all one can do is treat the symptoms
[2023-08-15] MEDS: METOCLOPRAMIDE 10 MG/2 ML INJ IV (20:16)
[2023-08-15 22:06] VITALS: TEMP 36.9
== END 2023-08-15 22:05 | disposition home or self-care (01) ==
PROVIDERS: Emergency Provider Emergency Medicine; PCP Family Medicine
DX: U07.1 COVID-19 (principal)
CPT/HCPCS: 96365; 96375; 99283; 99284; J0131; J2765

== ENCOUNTER 2025-01-22 18:13 | Emergency (ER) | payer OTHER, MEDICAID, SELFPAY ==
[2025-01-22 18:26] VITALS: BP 135/79; PULSE 66; RESP 16; TEMP 36.6; O2SAT 99; BMI 27.7
--- NOTE | 2025-01-22 18:50 | ED_ITS ---
HPI - Headache General Chief Complaint: Headache Stated Complaint: migraine t-2 Time Seen by Provider: 01/22/25 18:50 Mode of arrival: Ambulatory History of Present Illness HPI Narrative: 44-year-old female with a past medical history of bipolar with psychotic fea tures visual hallucinations anxiety depression comes into the ED from complaining of migraine headache, states she has a history of this status started spontaneously on morning has been taking Tylenol without much help did try topical CBD that initially helped but states that it is only taking ?the edge off. She denies any visual abnormalities denies any chest pain shortness breath fever chills nausea vomiting abdominal pain or any other GI/ symptoms time. NIH of 0 no focal deficits noted no trauma no falls not on any blood thinners states that this is the same as her history of migraine headaches states that normally her migraines started to back pain. Related Data Home Medications Medication Instructions Recorded Confirmed clonazepam 0.5 mg tablet 0.5 mg PO DAILY 03/08/23 08/14/23 hyoscyamine sulfate 0.125 mg tablet 0.125 mg PO 4XD 08/14/23 08/14/23 pantoprazole 40 mg tablet,delayed 40 mg PO BID 08/14/23 08/14/23 release Previous Rx's Medication Instructions Recorded ondansetron 4 mg disintegrating 4 mg PO Q6H PRN nausea and 03/08/23 tablet vomiting #10 tabs ondansetron 4 mg disintegrating 4 mg PO Q6H PRN nausea and 03/22/23 tablet vomiting #14 tabs sucralfate 100 mg/mL oral 10 ml PO QACHS #414 mL 03/22/23 suspension (Carafate) ondansetron 4 mg disintegrating 4 mg PO Q6H PRN nausea and 06/08/23 tablet vomiting #20 tabs Allergies Allergy/AdvReac Type Severity Reaction Status Date / Time meperidine [MEPERIDINE] Allergy Severe SEVERE Verified 01/22/25 18:26 SICKNESS morphine [MORPHINE] Allergy Severe SEVERE Verified 01/22/25 18:26 SICKNESS hydroxyzine [From VISTARIL] Allergy Unknown HEART Verified 01/22/25 18:26 RACING haloperidol [From Haldol] Allergy Unknown Verified 01/22/25 18:26 sulfamethoxazole AdvReac Mild increased Verified 01/22/25 18:26 [From SEPTRA] symptoms & nausea trimethoprim [From ] AdvReac Mild increased Verified 01/22/25 18:26 symptoms & nausea metronidazole [METRONIDAZOLE] AdvReac Unknown ANXIETY Verified 01/22/25 18:26 AND AGITATION Review of Systems Review of Systems Narrative: General: Denies fever, chills, weight loss HEENT: Denies headache, eye drainage, eye irritation, head trauma, sore throat, voice change Cardiovascular: Denies any chest pain, palpitations, shortness of breath, tachycardia Respiratory: Denies any shortness of breath, cough, wheeze, stridor GI/: Denies any abdominal pain, nausea, vomiting, diarrhea, bright red blood per rectum, melanotic stools, urinary frequency, urinary retention, dysuria, hematuria MSK: Denies any joint pain, muscle pains, swelling Skin: Denies any rashes, lesions, discoloration Neuro: Positive headache, denies lightheadedness, dizziness, fainting, weakness Psych: Denies SI/HI Patient History Medical History (Updated 01/22/25 @ 21:54 by Anthony Zuniga DO) Depression Bipolar disorder Anxiety Chronic pelvic pain in female Surgical History History of surgery on arm (1985) Status post hernia repair Status post laparoscopy Social History Smoking Status: Former smoker alcohol intake: never substance use type: marijuana Smoking Status: Former smoker tobacco type: vaping alcohol intake frequency: a few times a month Exam Narrative Exam Narrative: General: Cooperative, comfortable, well-developed, not in acute distress HEENT: Normocephalic, atraumatic, PERRLA, normal sclera, eyelids normal, Neck: Active full range of motion, atraumatic Chest: Normal to inspection, negative crepitus, no overlying erythema ecchymosis Respiratory: Normal respiratory effort, not in acute respiratory distress, clear to auscultation bilaterally negative cough, wheeze, tachypnea, rhonchi, rales Cardiology: Regular rate rhythm negative gallop, murmur, rubs GI/: Normal to inspection, soft, nonrigid, no tenderness to palpation, exam deferred MSK: Full range of active range of motion of all 4 extremities, atraumatic Skin: No rashes lesions noted Neuro: NIH of 0, no focal deficits noted Alert awake oriented x3, moves all 4 extremities spontaneously, cranial nerves intact, able to answer all questions appropriately follows commands appropriately Psych: Cooperative, negative suicidal or homicidal ideations Initial Vital Signs Initial Vital Signs: Vital Signs Temperature 97.8 F 01/22/25 18:26 Pulse Rate 66 01/22/25 18:26 Respiratory Rate 16 01/22/25 18:26 Blood Pressure 135/79 01/22/25 18:26 Pulse Oximetry 99 01/22/25 18:26 Oxygen Delivery Method Room Air 01/22/25 18:26 Course Orders Ordered: ED Orders 01/22/25 19:15 Urine Microscopic Stat Discontinued Medications Acetaminophen (Acetaminophen 325 Mg Tablet) 975 mg PO NOW ONE Stop: 01/22/25 18:55 Last Admin: 01/22/25 20:06 Dose: 975 mg Documented By: JULIO Dexamethasone (Dexamethasone 10 Mg/Ml Vial) 10 mg IV NOW ONE Stop: 01/22/25 18:54 Last Admin: 01/22/25 20:05 Dose: 10 mg Documented By: JULIO Diphenhydramine HCl (Diphenhydramine 50 Mg/Ml Vial) 25 mg IV NOW ONE Stop: 01/22/25 18:54 Last Admin: 01/22/25 20:05 Dose: 25 mg Documented By: JULIO Sodium Chloride (Normal Saline 0.9%) 1,000 mls @ 1,000 mls/hr IV BOLUS ONE Stop: 01/22/25 19:52 Last Infusion: 01/22/25 21:04 Dose: Infused Documented By: Admin: 01/22/25 20:05 Dose: 1,000 mls/hr Documented By: JULIO Prochlorperazine (Prochlorperazine 10 Mg/2 Ml Vial) 10 mg IV NOW ONE Stop: 01/22/25 18:54 Last Admin: 01/22/25 20:04 Dose: 10 mg Documented By: JULIO Vital Signs Vital signs: Vital Signs - 8 hr 01/22/25 18:26 Temperature 97.8 F Pulse Rate 66 Respiratory Rate 16 Blood Pressure 135/79 Pulse Oximetry 99 Oxygen Delivery Method Room Air MDM - Headache Differential Diagnosis Differential diagnosis: Likely migraine, tension headache and headache Lab Data Labs: Lab Results 01/22/25 Range/Units 19:15 Urine RBC 0-1/hpf (0-5/HPF) Urine WBC 1-5/hpf (0-5/HPF) Ur Squamous Epith Cells 1-5 /hpf (0-5/HPF) Urine Bacteria Moderate (10-30) H (None) Ur Culture Indicated? Cult not indicated Vol Urine Centrifuged 10ml (spun) Point of Care Testing Test Results Negative Urine Dip Bedside Urine Glucose Negative Bedside Urine Bilirubin - Negative Bedside Urine Ketone - Negative Urine Specific [place] 1.010 Bedside Urine Occult Blood +++ Bedside Urine pH 7.0 Bedside Urine Protein - Negative Bedside Urine Urobilinogen - Negative Bedside Urine Nitrite - Negative Bedside Urine Leukocytes - Negative Esterase MDM Narrative Medical decision making narrative: 44-year-old female with a history of migraine headaches comes in for headaches ongoing persistent for the past 2 days similar to history of migraine headaches, states that normally symptoms get worse whenever she feels ?tight. Light sounds making symptoms worse but no focal deficits on exam NIH of 0. Patient had migraine cocktail here with complete resolution of symptoms. Patient afebrile no meningeal signs. No indication for CT scan of the head given patient with a history of migraine and presenting with typical migraine features. Not worst headache of life. Patient was given strict return precautions she verbalized understanding of this and agrees to being discharged home with outpatient follow up. Discharge Plan Departure Patient Disposition: Home Clinical Impression: Migraine Instructions: DI for Migraine Activity Restrictions/Additional Instructions: Please follow up with primary care Please read the discharge instructions sheet carefully and bring all papers to all doctor follow-up visits, as it may contain information that your doctor may want to see. Disease processes change and evolve, if your symptoms worsen or if you develop any new symptoms that are concerning to you please return for evaluation. Your evaluation today does not show any evidence of any life- threatening/serious illnesses requiring admission to the hospital or surgery. Please follow-up with your doctor for re-evaluation in approximately 1 day. Seek immediate medical attention for any worrisome symptoms. *If you do not have a primary care provider please contact the [facility] Resource line at [phone]. They will ask some questions about your medical history and help get you set up with a doctor in the community. Prescriptions: No Action pantoprazole 40 mg tablet,delayed release (DR/EC) 40 mg PO BID hyoscyamine sulfate 0.125 mg tablet 0.125 mg PO 4XD clonazepam 0.5 mg tablet 0.5 mg PO DAILY ondansetron 4 mg tablet,disintegrating 4 mg PO Q6H PRN (Reason: nausea and vomiting) Qty: 10 0RF ondansetron 4 mg tablet,disintegrating 4 mg PO Q6H PRN (Reason: nausea and vomiting) Qty: 20 0RF ondansetron 4 mg tablet,disintegrating 4 mg PO Q6H PRN (Reason: nausea and vomiting) Qty: 14 0RF sucralfate [Carafate] 100 mg/mL suspension 10 ml PO QACHS Qty: 414 2RF Referrals: Jessica Galvan MD [Primary Care Provider] - Stand Alone Forms: Patient Portal/API/Survey
[2025-01-22 19:44] LABS: Bacteria Urine Moderate (10-30); RBC Urine 0-1/HPF (0-5/HPF); Squamous Epithelial Cell Urine 1-5 /HPF (0-5/HPF); Urine Volume 10mL (spun); WBC Urine 1-5/HPF (0-5/HPF)
[2025-01-22 19:45] LABS: Culture Indicated Urine Cult Not Indicated
[2025-01-22] MEDS: PROCHLORPERAZINE 10 MG/2 ML VIAL IV (20:04)
[2025-01-22] MEDS: SODIUM CHLORIDE 0.9% 1,000 ML 1000 ML IV (20:05)
[2025-01-22] MEDS: diphenhydrAMINE 50 MG/ML VIAL 25 MG IV (20:05)
[2025-01-22] MEDS: DEXAMETHASONE 10 MG/ML VIAL IV (20:05)
[2025-01-22] MEDS: ACETAMINOPHEN 325 MG TABLET 975 MG PO (20:06)
[2025-01-22 21:56] VITALS: BP 121/73; PULSE 85; RESP 16; O2SAT 97
== END 2025-01-22 22:01 | disposition home or self-care (01) ==
PROVIDERS: Emergency Provider Student in an Organized Health Care Education/Training Program; PCP Family Medicine
DX: G43.909 Migraine, unspecified, not intractable, without status migrainosus (principal); R82.71 Bacteriuria
CPT/HCPCS: 36415; 81003; 81015; 81025; 96361; 96374; 96375; 99284; J0780; J1100; J1200